=== PATIENT | male | born 1960 | race Caucasian/White ===

== ENCOUNTER 2020-05-14 08:47 | Outpatient (REF) | payer MEDICARE, SELFPAY | END 2020-05-14 08:48 | disposition home or self-care (01) | LOC: HO.LAB 08:47 | PROVIDERS: PCP Internal Medicine; Visit Provider Internal Medicine | DX: Z20.828 Contact with and (suspected) exposure to other viral communicable diseases (principal) | CPT/HCPCS: C9803; U0003 ==

== ENCOUNTER 2020-08-13 10:45 | Outpatient (REF) | payer MEDICARE, SELFPAY | END 2020-08-13 10:46 | disposition home or self-care (01) | LOC: HO.LAB 10:45 | PROVIDERS: Visit Provider Internal Medicine | DX: Z20.822 Contact with and (suspected) exposure to COVID-19 (principal) | CPT/HCPCS: 36415; C9803; U0003; U0005 ==

== ENCOUNTER 2020-09-18 11:17 | Outpatient (REF) | payer MEDICARE, SELFPAY | END 2020-09-18 11:18 | disposition home or self-care (01) | LOC: HO.LAB 11:17 | PROVIDERS: Visit Provider Internal Medicine | DX: Z20.822 Contact with and (suspected) exposure to COVID-19 (principal) | CPT/HCPCS: C9803; U0003; U0005 ==

== ENCOUNTER 2020-10-05 20:34 | Emergency (ER) | payer MEDICARE, SELFPAY ==
--- NOTE | ~2020-10-05 | XR_ITS ---
EXAMINATION: XR CHEST CLINICAL INFORMATION: Chest pain COMPARISON: 07/27/2019 TECHNIQUE: Frontal view of the chest was obtained. FINDINGS: No significant abnormality is noted involving the heart, lungs, mediastinum, bony thorax or soft tissues. XR/XR chest 1V IMPRESSION: Unremarkable examination.
[2020-10-05 20:46] VITALS: BP 122/71; PULSE 63; RESP 16; TEMP 36.6; O2SAT 96; BMI 34.3
--- NOTE | 2020-10-05 20:51 | ECG_ITS ---
Test Reason : CHEST PAIN Blood Pressure : / mmHG Vent. Rate : 064 BPM Atrial Rate : 064 BPM P-R Int : 152 ms QRS Dur : 088 ms QT Int : 396 ms P-R-T Axes : 036 017 031 degrees QTc Int : 408 ms Normal sinus rhythm Normal ECG No previous ECGs available Referred By: Generic ED Physician Electronically Signed By:VANESA ABERNATHY
--- NOTE | 2020-10-05 21:10 | ED_ITS ---
HPI - Chest Pain General Chief Complaint: Chest Pain Stated Complaint: CHEST PAIN Time Seen by Provider: 10/05/20 21:10 Source: patient Mode of arrival: ambulatory History of Present Illness HPI narrative: 60-year-old male with history of seizures denies any other significant past medical history who presents with onset of chest pressure r adiating into his throat and left shoulder that initially started at 10:00 a.m. 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 He denies any association with nausea, diaphoresis, shortness of breath, dizziness, or headache. Patient is unsure of the duration of the pain but denies any association with deep inspiration or movement. He states that this happened a couple more times throughout the day and then when he was out shopping with his at approximately 6:00 p.m. that he began feeling lightheaded and having a headache. He states that he recently returned from [place] and denies any calf swelling or pain. His last COVID testing was twice just prior to flying b ack from [place] and he was negative. In addition, patient is status post Arnoldo and Arnoldo COVID-19 vaccine. Related Data Allergies Allergy/AdvReac Type Severity Reaction Status Date / Time No Known Allergies Allergy Verified 10/05/20 20:45 Review of Systems Review of Systems: Pertinent positives and negatives as stated in HPI 10 point review systems is otherwise negative. PMFSH Past Medical History Source: nursing notes reviewed Medical History Seizure Social History Social History Smoked in Last 30 Days: No Advance Directives: No Advance Directives Information Provided: Yes Physical Exam Vital Signs: Vital Signs: Last Vital Signs Temp 98 F 10/05/20 20:46 Pulse 63 10/05/20 20:46 Resp 16 10/05/20 20:46 BP 122/71 10/05/20 20:46 Pulse Ox 96 10/05/20 20:46 Body Mass Index 34.3 VITAL SIGNS: Reviewed. GENERAL: Well developed, well nourished, in no acute distress. HEAD: Normocephalic/atraumatic EYES: PERRLA, EOMI OROPHARYNX: no oral lesions noted, posterior pharynx clear NECK: Supple, no adenopathy LUNGS: Normal breath sounds. No adventitious sounds or accessory muscle use. SpO2<96>, pain on palpation across left anterior chest wall CARDIOVASCULAR: Regular rate and rhythm without noted murmurs, no JVD or lower extremity edema. ABDOMEN: Soft, non-tender, non-distended with bowel sounds. MUSCULOSKELETAL: No tenderness, deformities, or effusions noted on gross inspection. EXTREMITIES: No cyanosis, clubbing or edema. SKIN: Inspection of the skin reveals no rashes, ulcerations, jaundice, pallor, or petechiae. NEUROLOGIC: Alert and oriented x 4. Strength and sensation to light touch were grossly intact x 4. Course Course Course Narrative: 60-year-old male with history and clinical presentation concerning for possible PE, muscle strain, costochondritis and less likely angina as patient does not have significant history of hypertension or diabetes. HEART Score: 2 Review of all investigations and on re-evaluations are no acute findings to sugg est PE or cardiac ischemia especially given clinical findings of pain on palpation of the anterior chest wall. In addition, patient has low risk and no corresponding EKG changes. All results and findings discussed with him at bedside. He will be discharged in stable condition with strict instructions to follow-up with his primary care provider for further outpatient evaluation. MDM - Chest Pain Lab Data Result diagrams: 10/05/20 21:38 10/05/20 21:38 Labs: Lab Results 10/05/20 10/05/20 10/05/20 Range/Units 21:38 21:38 21:38 WBC 5.2 (4.8-10.8) X10*3/uL RBC 5.04 (4.60-5.80) X10*6/uL Hgb 15.0 (14.0-18.0) g/dl Hct 45.2 (42-52) % MCV 89.7 (80-98) fL MCH 29.8 (27.0-33.0) pg MCHC 33.2 (31.0-36.0) g/dl RDW 12.4 (11.0-16.0) % Plt Count 193 (160-400) X10*3/uL MPV 9.7 (9.4-12.4) fL Immature Gran % (Auto) 0.2 (0.0-0.4) % Neut % (Auto) 58.2 (45-73) % Lymph % (Auto) 25.5 (20-40) % [place] % (Auto) 11.7 H (2-11) % Eos % (Auto) 4.0 (0-4) % Baso % (Auto) 0.4 (0-2) % Lymph # (Auto) 1.3 (1.2-4.9) X10*3/uL [place] # (Auto) 0.6 (0.1-1.2) X10*3/uL Eos # (Auto) 0.2 (0.0-0.4) X10*3/uL Baso # (Auto) 0.0 (0.0-0.2) X10*3/uL Abs Immat Gran (auto) 0.01 (0.00-0.03) X10*3/uL Absolute Neuts (auto) 3.0 (2.0-8.3) X10*3/uL Absolute Nucleated RBC 0.000 (0.0-0.012) X10*3/uL Nucleated RBC % (auto) 0.0 (0.0-0.2) /100WBC D-Dimer < 200 NG/ML Hold Blue Top SEE NOTE Sodium 144 (135-145) mmol/L Potassium 4.2 (3.3-5.1) mmol/L Chloride 108 (96-108) mmol/L Carbon Dioxide 28 (22-29) mmol/L Anion Gap 12 (12-20) BUN 19 H (9-16) mg/dL Creatinine 1.15 (0.5-1.4) mg/dL Estim Creat Clear Calc 79.2 Estimated GFR > 60 Random Glucose 97 (60-115) mg/dL Calcium 9.0 (8.4-10.2) mg/dL Total Bilirubin (0.0-1.0) mg/dL Direct Bilirubin (0.0-0.5) mg/dL AST (5-37) U/L ALT (0-40) U/L Alkaline Phosphatase (39-117) U/L Troponin I High Sens (<3.5-35.0) ng/L Total Protein (6.5-8.0) g/dL Albumin (3.5-5.0) g/dL 10/05/20 10/05/20 Range/Units 21:38 21:38 WBC (4.8-10.8) X10*3/uL RBC (4.60-5.80) X10*6/uL Hgb (14.0-18.0) g/dl Hct (42-52) % MCV (80-98) fL MCH (27.0-33.0) pg MCHC (31.0-36.0) g/dl RDW (11.0-16.0) % Plt Count (160-400) X10*3/uL MPV (9.4-12.4) fL Immature Gran % (Auto) (0.0-0.4) % Neut % (Auto) (45-73) % Lymph % (Auto) (20-40) % [place] % (Auto) (2-11) % Eos % (Auto) (0-4) % Baso % (Auto) (0-2) % Lymph # (Auto) (1.2-4.9) X10*3/uL [place] # (Auto) (0.1-1.2) X10*3/uL Eos # (Auto) (0.0-0.4) X10*3/uL Baso # (Auto) (0.0-0.2) X10*3/uL Abs Immat Gran (auto) (0.00-0.03) X10*3/uL Absolute Neuts (auto) (2.0-8.3) X10*3/uL Absolute Nucleated RBC (0.0-0.012) X10*3/uL Nucleated RBC % (auto) (0.0-0.2) /100WBC D-Dimer NG/ML Hold Blue Top Sodium (135-145) mmol/L Potassium (3.3-5.1) mmol/L Chloride (96-108) mmol/L Carbon Dioxide (22-29) mmol/L Anion Gap (12-20) BUN (9-16) mg/dL Creatinine (0.5-1.4) mg/dL Estim Creat Clear Calc Estimated GFR Random Glucose (60-115) mg/dL Calcium (8.4-10.2) mg/dL Total Bilirubin 0.4 (0.0-1.0) mg/dL Direct Bilirubin < 0.2 (0.0-0.5) mg/dL AST 18 (5-37) U/L ALT 29 (0-40) U/L Alkaline Phosphatase 109 (39-117) U/L Troponin I High Sens < 3.5 (<3.5-35.0) ng/L Total Protein 6.3 L (6.5-8.0) g/dL Albumin 4.0 (3.5-5.0) g/dL ECG Data ECG #1: Attestation: I personally reviewed and interpreted this ECG as follows: Prior ECG tracings: not available for review Interpretation: Normal sinus rhythm, HR-64, no evidence of acute ischemia, [place]/QRS/QTC are within normal limits. Discharge Plan Discharge Clinical Impression: Atypical chest pain, Muscle strain of anterior chest wall Patient Disposition: Home, Self-Care Instructions: Muscle Strain (ED), Chest Wall Pain (ED) Additional Instructions: 1. Drink more fluids especially water. 2. Treat your pain with [id number] Tylenol/ibuprofen as per instructions on the outside packaging. 3. Follow-up with your primary care provider in the next 2-3 days for re- evaluation. Return to the emergency department for any acute worsening of your symptoms. Referrals: Grant Lopez MD [Primary Care Provider] - 2 days (Re-evaluation after evaluated in the emergency room for chest pain, EKG/troponin/D-dimer/x-ray are otherwise negative for acute findings.)
[2020-10-05 22:03] LABS: MANUAL DIFF FLAG NO
[2020-10-05 22:05] LABS: Basophils Percent Auto 0.4 % (0-2); Eosinophils Absolute Auto 0.2 X10*3/uL (0.0-0.4); Hematocrit 45.2 % (42-52); Imm Gran Abs Auto 0.01 X10*3/uL (0.00-0.03); Imm Gran Pct Auto 0.2 % (0.0-0.4); Lymphocytes Absolute Auto 1.3 X10*3/uL (1.2-4.9); Lymphocytes Percent Auto 25.5 % (20-40); Mean Corpuscular HGB Conc 33.2 g/dl (31.0-36.0); Mean Corpuscular Hemoglobin 29.8 pg (27.0-33.0); Mean Corpuscular Volume 89.7 fL (80-98); Mean Platelet Volume 9.7 fL (9.4-12.4); Monocytes Absolute Auto 0.6 X10*3/uL (0.1-1.2); Monocytes Percent Auto 11.7 % (2-11); Neutrophils Percent Auto 58.2 % (45-73); Platelet Count 193 X10*3/uL (160-400); Red Blood Count 5.04 X10*6/uL (4.60-5.80); Red Cell Distribution Width 12.4 % (11.0-16.0); White Blood Count 5.2 X10*3/uL (4.8-10.8)
[2020-10-05 22:19] LABS: D Dimer < 200 NG/ML
[2020-10-05 22:25] LABS: Anion Gap 12 (12-20); Blood Urea Nitrogen 19 mg/dL (9-16); Carbon Dioxide 28 mmol/L (22-29); Chloride 108 mmol/L (96-108); Creatinine Clr Calc Pharmacy 79.2; Estimated Glomerular Filt Rate > 60; Glucose Random 97 mg/dL (60-115); Potassium 4.2 mmol/L (3.3-5.1); Sodium 144 mmol/L (135-145)
[2020-10-05 22:28] LABS: Alanine Aminotransferase 29 U/L (0-40); Alkaline Phosphatase 109 U/L (39-117); Aspartate Amino Transferase 18 U/L (5-37); Bilirubin Direct < 0.2 mg/dL (0.0-0.5); Bilirubin Total 0.4 mg/dL (0.0-1.0); Total Protein 6.3 g/dL (6.5-8.0)
[2020-10-05 22:33] LABS: Troponin-I High Sensitivity < 3.5 ng/L (<3.5-35.0)
[2020-10-05 23:30] VITALS: PULSE 78; RESP 16
== END 2020-10-05 23:59 | disposition home or self-care (01) ==
PROVIDERS: Emergency Provider Student in an Organized Health Care Education/Training Program; PCP Internal Medicine
DX: R07.89 Other chest pain (principal); S29.011A Strain of muscle and tendon of front wall of thorax, initial encounter; X58.XXXA Exposure to other specified factors, initial encounter; Y93.89 Activity, other specified; Y92.411 Interstate highway as the place of occurrence of the external cause; Y99.9 Unspecified external cause status
CPT/HCPCS: 36415; 71045; 80048; 80076; 84484; 85025; 85379; 93005; 99283; 99284

== ENCOUNTER 2020-10-24 17:19 | Emergency (ER) | payer MEDICARE, SELFPAY ==
[2020-10-24 17:36] VITALS: BP 127/76; PULSE 82; RESP 18; TEMP 36.1; O2SAT 95; BMI 34.7
[2020-10-24 19:27] LABS: MANUAL DIFF FLAG NO
[2020-10-24 19:28] LABS: Basophils Percent Auto 0.6 % (0-2); Eosinophils Absolute Auto 0.1 X10*3/uL (0.0-0.4); Eosinophils Percent Auto 2.4 % (0-4); Hematocrit 47.7 % (42-52); Hemoglobin 15.9 g/dl (14.0-18.0); Imm Gran Abs Auto 0.02 X10*3/uL (0.00-0.03); Imm Gran Pct Auto 0.4 % (0.0-0.4); Lymphocytes Absolute Auto 1.4 X10*3/uL (1.2-4.9); Lymphocytes Percent Auto 26.5 % (20-40); Mean Corpuscular HGB Conc 33.3 g/dl (31.0-36.0); Mean Corpuscular Hemoglobin 30.1 pg (27.0-33.0); Mean Corpuscular Volume 90.2 fL (80-98); Mean Platelet Volume 9.3 fL (9.4-12.4); Monocytes Absolute Auto 0.6 X10*3/uL (0.1-1.2); Monocytes Percent Auto 11.1 % (2-11); Neutrophils Absolute Auto 3.1 X10*3/uL (2.0-8.3); Platelet Count 222 X10*3/uL (160-400); Red Blood Count 5.29 X10*6/uL (4.60-5.80); Red Cell Distribution Width 12.8 % (11.0-16.0); White Blood Count 5.3 X10*3/uL (4.8-10.8)
[2020-10-24 19:31] LABS: Glucose Urine UA NEG (NEG); Leukocyte Esterase Urine NEG (NEG); Nitrite Urine NEG (NEG); Specific Gravity - Urine 1.025 (1.005-1.025); Urine Blood NEG (NEG); Urine Ketones NEG (NEG); Urine Protein NEG (NEG-TRACE)
[2020-10-24 19:34] LABS: Appearance Urine CLEAR; Color Urine YELLOW
[2020-10-24 19:54] LABS: Alanine Aminotransferase 33 U/L (0-40); Albumin Level 4.2 g/dL (3.5-5.0); Alkaline Phosphatase 125 U/L (39-117); Anion Gap 12 (12-20); Aspartate Amino Transferase 21 U/L (5-37); Bilirubin Total 0.2 mg/dL (0.0-1.0); Blood Urea Nitrogen 16 mg/dL (9-16); Calcium 9.2 mg/dL (8.4-10.2); Carbon Dioxide 28 mmol/L (22-29); Chloride 105 mmol/L (96-108); Creatinine Clr Calc Pharmacy 76.3; Estimated Glomerular Filt Rate > 60; Glucose Random 87 mg/dL (60-115); Potassium 4.1 mmol/L (3.3-5.1); Sodium 141 mmol/L (135-145); Total Protein 6.7 g/dL (6.5-8.0)
[2020-10-24 20:00] VITALS: RESP 16
[2020-10-24 20:00] LABS: OBS Int Ctl Valid YES; OBS1 POSITIVE (NEGATIVE)
--- NOTE | 2020-10-24 20:04 | ED_ITS ---
HPI - General Adult General Chief complaint: Abdominal Pain Stated complaint: blood in urine Time Seen by Provider: 10/24/20 19:29 Source: patient Mode of arrival: ambulatory Limitations: no limitations History of Present Illness HPI narrative: Patient presents to the ED for 1 episode of stool which occurred yesterday. Patient states he was straining while using the bathroom and his stool was hard and than there was bright red blood in the stool. Patient states stool was brown. Patient admits to history of hemorrhoids. Denies vomiting blood, dizziness, headache, abdominal pain, chest pain, shortness of breath, or any recent trauma. Related Data Previous Rx's Medication Instructions Recorded docusate sodium [Colace] 100 mg PO BID #20 cap 10/24/20 hydrocortisone acetate [Anusol-HC] 25 mg FL BID #12 ea 10/24/20 Allergies Allergy/AdvReac Type Severity Reaction Status Date / Time No Known Allergies Allergy Verified 10/05/20 20:45 Review of Systems Review of Systems: Yes all other systems are reviewed and are negative Constitutional: Constitutional: Reports as per HPI and Reports no additional constitutional complaints Eyes: Eyes: Reports as per HPI and Reports no additional eye complaints ENT: Reports system reviewed and no additional complaints, except as documented and Reports as per HPI Cardiovascular: Cardiovascular: Reports as per HPI and Reports no additional cardiovascular complaints Respiratory: Respiratory: Reports as per HPI and Reports no additional respiratory complaints Gastrointestinal: Gastrointestinal: Reports as per HPI, Reports no additional gastrointestinal complaints and Reports hematochezia Genitourinary: Genitourinary: Reports no additional male genitourinary complaints and Reports as per HPI Musculoskeletal: Musculoskeletal: Reports no additional musculoskeletal compla ints and Reports as per HPI Neurologic: Reports system reviewed and no additional complaints, except as documented and Reports as per HPI Psychiatric: Psychiatric: Reports no additional psychiatric complaints and Reports as per HPI PMF Past Medical History Medical History Seizure Social History Social History Alcohol intake: current Alcohol intake frequency: holidays/special occasions only Patient Tobacco Use Status: Never used Tobacco Use of substances other than those prescribed or required for medical reasons: Refusing to respond Advance Directives: No Advance Directives Information Provided: No Physical Exam Vital Signs: Vital Signs: Last Vital Signs Temp 96.9 F 10/24/20 17:36 Pulse 82 10/24/20 17:36 Resp 16 10/24/20 20:00 BP 127/76 10/24/20 17:36 Pulse Ox 95 10/24/20 17:36 Body Mass Index 34.7 Const: General: cooperative, healthy appearing, comfortable, no acute distress, well developed, alert, awake and Physically active Orientation/consciousness: patient oriented x3 HENMT: Head: Yes normal to inspection, Yes No palpable skull fracture present, Yes normocephalic and Yes atraumatic Eyes: General: appearance normal, both eyes and all related structures Neck: Neck: Yes normal visual inspection, Yes full ROM, Yes no lymphadenopathy, Yes no meningeal signs, Yes trachea midline, Yes supple and No tender Chest: Chest palpation & inspection: normal inspection of the chest and normal palpation of entire chest wall Resp: Effort & Inspection: normal respiratory effort and able to speak in complete sentences Auscultation: clear to auscultation bilaterally Cardio: Jugular venous distension: no JVD Heart sounds: S1 normal heart sound present and S2 normal heart sound present GI: Other: Rectal exam negative for octavio blood. Stool is brown. Positive for hemorrhoids Inspection: Yes normal to inspection and No abdominal wall ecchymosis Palpation (GI): Soft to palpation, not firm, nontender, no guarding and not rigid : General: No CVA tenderness and Yes no CVA tenderness Back/Spine/Pelvis: Back: no CVA tenderness, No CVA tenderness and No back tend erness Skin: General skin exam: no rashes or lesions noted and elasticity normal Neuro: General: patient oriented x3, gait normal, no meningeal signs and CN's II-XI intact bilaterally Cranial nerves: Yes CN's II-XII intact bilaterally Extrem: General: Yes normal to inspection and Yes full ROM Psych: Appearance: grossly normal, well kempt and not disheveled Course Course Course Narrative: Patient will have labs drawn. Reevaluation(s) Reevaluation #1: Labs came back stable. Patient is not anemic. Patient is hemodynamically stable. Blood stool positive as expected. Not suspecting GI bleed. Diagnosis hemorrhoids Medical Decision Making MDM Narrative Medical decision making narrative: Hemorrhoids Lab Data Result diagrams: 10/24/20 19:00 10/24/20 19:00 Labs: Lab Results 10/24/20 10/24/20 10/24/20 Range/Units 19:00 19:00 19:00 WBC 5.3 (4.8-10.8) X10*3/uL RBC 5.29 (4.60-5.80) X10*6/uL Hgb 15.9 (14.0-18.0) g/dl Hct 47.7 (42-52) % MCV 90.2 (80-98) fL MCH 30.1 (27.0-33.0) pg MCHC 33.3 (31.0-36.0) g/dl RDW 12.8 (11.0-16.0) % Plt Count 222 (160-400) X10*3/uL MPV 9.3 L (9.4-12.4) fL Immature Gran % (Auto) 0.4 (0.0-0.4) % Neut % (Auto) 59.0 (45-73) % Lymph % (Auto) 26.5 (20-40) % [place] % (Auto) 11.1 H (2-11) % Eos % (Auto) 2.4 (0-4) % Baso % (Auto) 0.6 (0-2) % Lymph # (Auto) 1.4 (1.2-4.9) X10*3/uL [place] # (Auto) 0.6 (0.1-1.2) X10*3/uL Eos # (Auto) 0.1 (0.0-0.4) X10*3/uL Baso # (Auto) 0.0 (0.0-0.2) X10*3/uL Abs Immat Gran (auto) 0.02 (0.00-0.03) X10*3/uL Absolute Neuts (auto) 3.1 (2.0-8.3) X10*3/uL Absolute Nucleated RBC 0.000 (0.0-0.012) X10*3/uL Nucleated RBC % (auto) 0.0 (0.0-0.2) /100WBC PT 12.0 (10.8-13.0) SEC INR 1.0 (0.9-1.1) APTT 37.2 (24.1-38.0) SEC Hold Blue Top SEE NOTE Sodium 141 (135-145) mmol/L Potassium 4.1 (3.3-5.1) mmol/L Chloride 105 (96-108) mmol/L Carbon Dioxide 28 (22-29) mmol/L Anion Gap 12 (12-20) BUN 16 (9-16) mg/dL Creatinine 1.20 (0.5-1.4) mg/dL Estim Creat Clear Calc 76.3 Estimated GFR > 60 Random Glucose 87 (60-115) mg/dL Calcium 9.2 (8.4-10.2) mg/dL Total Bilirubin 0.2 (0.0-1.0) mg/dL AST 21 (5-37) U/L ALT 33 (0-40) U/L Alkaline Phosphatase 125 H (39-117) U/L Total Protein 6.7 (6.5-8.0) g/dL Albumin 4.2 (3.5-5.0) g/dL Urine Color Urine Appearance Urine pH (5.0-8.0) Ur Specific [place] (1.005-1.025) Urine Protein (NEG-TRACE) MG/DL Urine Glucose (UA) (NEG) MG/DL Urine Ketones (NEG) MG/DL Urine Blood (NEG) Urine Nitrite (NEG) Ur Leukocyte Esterase (NEG) Stool Occult Blood (NEGATIVE) 10/24/20 10/24/20 Range/Units 19:00 19:52 WBC (4.8-10.8) X10*3/uL RBC (4.60-5.80) X10*6/uL Hgb (14.0-18.0) g/dl Hct (42-52) % MCV (80-98) fL MCH (27.0-33.0) pg MCHC (31.0-36.0) g/dl RDW (11.0-16.0) % Plt Count (160-400) X10*3/uL MPV (9.4-12.4) fL Immature Gran % (Auto) (0.0-0.4) % Neut % (Auto) (45-73) % Lymph % (Auto) (20-40) % [place] % (Auto) (2-11) % Eos % (Auto) (0-4) % Baso % (Auto) (0-2) % Lymph # (Auto) (1.2-4.9) X10*3/uL [place] # (Auto) (0.1-1.2) X10*3/uL Eos # (Auto) (0.0-0.4) X10*3/uL Baso # (Auto) (0.0-0.2) X10*3/uL Abs Immat Gran (auto) (0.00-0.03) X10*3/uL Absolute Neuts (auto) (2.0-8.3) X10*3/uL Absolute Nucleated RBC (0.0-0.012) X10*3/uL Nucleated RBC % (auto) (0.0-0.2) /100WBC PT (10.8-13.0) SEC INR (0.9-1.1) APTT (24.1-38.0) SEC Hold Blue Top Sodium (135-145) mmol/L Potassium (3.3-5.1) mmol/L Chloride (96-108) mmol/L Carbon Dioxide (22-29) mmol/L Anion Gap (12-20) BUN (9-16) mg/dL Creatinine (0.5-1.4) mg/dL Estim Creat Clear Calc Estimated GFR Random Glucose (60-115) mg/dL Calcium (8.4-10.2) mg/dL Total Bilirubin (0.0-1.0) mg/dL AST (5-37) U/L ALT (0-40) U/L Alkaline Phosphatase (39-117) U/L Total Protein (6.5-8.0) g/dL Albumin (3.5-5.0) g/dL Urine Color YELLOW Urine Appearance CLEAR Urine pH 6.0 (5.0-8.0) Ur Specific [place] 1.025 (1.005-1.025) Urine Protein NEG (NEG-TRACE) MG/DL Urine Glucose (UA) NEG (NEG) MG/DL Urine Ketones NEG (NEG) MG/DL Urine Blood NEG (NEG) Urine Nitrite NEG (NEG) Ur Leukocyte Esterase NEG (NEG) Stool Occult Blood POSITIVE (NEGATIVE) Discharge Plan Discharge Clinical Impression: Hemorrhoids, Rectal bleed Patient Disposition: Home, Self-Care Instructions: Hemorrhoids (ED), Rectal Bleeding (ED) Additional Instructions: Return to ED for abdominal pain, nausea, vomiting, profuse rectal bleeding, rectal pain, flank pain, fever, chills, dizziness, chest pain, shortness of breath, any other concerning symptoms. Prescriptions: New hydrocortisone acetate [Anusol-HC] 25 mg suppository 25 mg FL BID Qty: 12 RF: 0 docusate sodium [Colace] 100 mg capsule 100 mg PO BID Qty: 20 RF: 0 Referrals: Grant Lopez MD [Primary Care Provider] - 2 days (Hemorrhoids. Rectal bleeding) Interventions: ED Discharge Assessment Last Done: 10/24/20 20:21 Discharge Date/Time: 10/24/20 20:22 Print Language: Tongan
--- NOTE | 2020-10-24 20:11 | PC.NURSE ---
per marcelo leal, no need for iv.
[2020-10-24 20:14] LABS: Partial Thromboplastin Time 37.2 SEC (24.1-38.0)
== END 2020-10-24 20:22 | disposition home or self-care (01) ==
PROVIDERS: Physician Assistant; Emergency Provider Internal Medicine; PCP Internal Medicine
DX: K64.9 Unspecified hemorrhoids (principal); Z79.899 Other long term (current) drug therapy
CPT/HCPCS: 36415; 80053; 81003; 82272; 85025; 85610; 85730; 99284

== ENCOUNTER 2021-03-07 10:25 | Outpatient (REF) | payer MEDICARE, SELFPAY ==
[2021-03-07 13:36] LABS: MANUAL DIFF FLAG NO
[2021-03-07 13:43] LABS: Basophils Percent Auto 0.5 % (0-2); Eosinophils Absolute Auto 0.1 X10*3/uL (0.0-0.4); Hematocrit 44.5 % (42-52); Imm Gran Abs Auto 0.02 X10*3/uL (0.00-0.03); Imm Gran Pct Auto 0.4 % (0.0-0.4); Lymphocytes Absolute Auto 1.1 X10*3/uL (1.2-4.9); Lymphocytes Percent Auto 20.1 % (20-40); Mean Corpuscular HGB Conc 33.7 g/dl (31.0-36.0); Mean Corpuscular Hemoglobin 30.4 pg (27.0-33.0); Mean Corpuscular Volume 90.3 fL (80-98); Mean Platelet Volume 9.9 fL (9.4-12.4); Monocytes Absolute Auto 0.7 X10*3/uL (0.1-1.2); Monocytes Percent Auto 11.8 % (2-11); Neutrophils Absolute Auto 3.6 X10*3/uL (2.0-8.3); Neutrophils Percent Auto 65.2 % (45-73); Platelet Count 220 X10*3/uL (160-400); Red Blood Count 4.93 X10*6/uL (4.60-5.80); Red Cell Distribution Width 12.6 % (11.0-16.0); White Blood Count 5.5 X10*3/uL (4.8-10.8)
[2021-03-07 13:59] LABS: Estimated Average Glucose 123 mg/dL; Hemoglobin A1c % 5.9 %
[2021-03-07 14:18] LABS: Alanine Aminotransferase 25 U/L (0-40); Alkaline Phosphatase 100 U/L (39-117); Anion Gap 12 (12-20); Aspartate Amino Transferase 16 U/L (5-37); Bilirubin Total 0.2 mg/dL (0.0-1.0); Blood Urea Nitrogen 19 mg/dL (9-16); C Reactive Protein 0.26 mg/dL (< or = 0.50); Calcium 9.2 mg/dL (8.4-10.2); Carbon Dioxide 26 mmol/L (22-29); Chloride 109 mmol/L (96-108); Cholesterol 214 mg/dL; Estimated Glomerular Filt Rate 59; Glucose Random 78 mg/dL (60-115); Lipase 45 U/L (8-78); Potassium 4.7 mmol/L (3.3-5.1); Sodium 142 mmol/L (135-145); Total Protein 6.1 g/dL (6.5-8.0)
[2021-03-07 14:22] LABS: Creatinine Urine 94.33 mg/dL; Microalbumin Urine < 5.0 mg/L
[2021-03-08 15:25] LABS: Transglutaminase Ab IgG <1.0 U/mL; Transglutaminase IgA <1.0 U/mL
== END 2021-03-07 10:26 | disposition home or self-care (01) ==
LOC: HO.10HDL 10:25
PROVIDERS: Visit Provider Internal Medicine
DX: R73.03 Prediabetes (principal); R19.7 Diarrhea, unspecified; G40.909 Epilepsy, unspecified, not intractable, without status epilepticus
CPT/HCPCS: 36415; 80053; 82043; 82465; 83036; 83516; 83690; 85025; 86140

== ENCOUNTER 2021-07-24 11:56 | Outpatient (REF) | payer MEDICARE, SELFPAY ==
[2021-07-24 13:57] LABS: MANUAL DIFF FLAG NO
[2021-07-24 13:59] LABS: Basophils Percent Auto 0.2 % (0-2); Eosinophils Percent Auto 0.2 % (0-4); Hematocrit 48.3 % (42.0-52.0); Hemoglobin 16.1 g/dl (14.0-18.0); Imm Gran Abs Auto 0.03 X10*3/uL (0.00-0.03); Imm Gran Pct Auto 0.7 % (0.0-0.4); Lymphocytes Absolute Auto 0.4 X10*3/uL (1.2-4.9); Lymphocytes Percent Auto 9.8 % (20-40); Mean Corpuscular HGB Conc 33.3 g/dl (31.0-36.0); Mean Corpuscular Hemoglobin 30.2 pg (27.0-33.0); Mean Corpuscular Volume 90.6 fL (80.0-98.0); Mean Platelet Volume 9.8 fL (9.4-12.4); Monocytes Absolute Auto 0.4 X10*3/uL (0.1-1.2); Monocytes Percent Auto 9.3 % (2-11); Neutrophils Absolute Auto 3.5 x10*3/uL (2.0-8.3); Neutrophils Percent Auto 79.8 % (45-73); Platelet Count 172 X10*3/uL (160-400); Red Blood Count 5.33 X10*6/uL (4.60-5.80); Red Cell Distribution Width 12.7 % (11.0-16.0); White Blood Count 4.4 X10*3/uL (4.8-10.8)
[2021-07-24 14:07] LABS: Estimated Average Glucose 131 mg/dL; Hemoglobin A1c % 6.2 %
[2021-07-24 14:32] LABS: Alanine Aminotransferase 25 U/L (0-40); Alkaline Phosphatase 112 U/L (39-117); Anion Gap 16 (12-20); Aspartate Amino Transferase 17 U/L (5-37); Bilirubin Total 0.6 mg/dL (0.0-1.0); Blood Urea Nitrogen 21 mg/dL (9-16); Calcium 9.1 mg/dL (8.4-10.2); Carbon Dioxide 24 mmol/L (22-29); Chloride 105 mmol/L (96-108); Cholesterol 198 mg/dL; Estimated Glomerular Filt Rate 59; Glucose Fasting 93 mg/dL (60-99); HDL Cholesterol 42 mg/dL; LDL Cholesterol Calculated 135 mg/dl; Potassium 4.2 mmol/L (3.3-5.1); Sodium 141 mmol/L (135-145); Total Protein 6.4 g/dL (6.5-8.0); Triglycerides 109 mg/dL
[2021-07-24 14:46] LABS: Carbamazepine Tegretol 2.6 mcg/mL (5.0-12.0); Phenytoin Dilantin 2.3 ug/mL (10.0-20.0)
[2021-07-24 14:54] LABS: Prostate Specific Antigen Scr 1.76 ng/mL (<0.05-4.0)
== END 2021-07-24 11:57 | disposition home or self-care (01) ==
LOC: HO.10HDL 11:56
PROVIDERS: Visit Provider Internal Medicine
DX: Z12.5 Encounter for screening for malignant neoplasm of prostate (principal); R10.9 Unspecified abdominal pain; E78.00 Pure hypercholesterolemia, unspecified; G40.909 Epilepsy, unspecified, not intractable, without status epilepticus
CPT/HCPCS: 36415; 80053; 80061; 80156; 80185; 83036; 84153; 85025

== ENCOUNTER 2021-12-06 08:25 | Day surgery (SDC) | payer MEDICARE, SELFPAY ==
--- NOTE | 2021-12-04 12:44 | HO.ANESPROP2 ---
HPI - Anesthesia Eval Consult details Narrative: 61yo M for Colonoscopy PMF Past Medical History Medical History Seizure Social History Social History Alcohol intake: current Alcohol intake frequency: does not drink Patient Tobacco Use Status: Never used Tobacco Are you DNR?: No Advance Directives: No Advance Directives Information Provided: Yes Meds Allergies Allergy/AdvReac Type Severity Reaction Status Date / Time No Known Allergies Allergy Verified 10/05/20 20:45 Home Medications Medication Instructions Recorded Confirmed Last Taken Type phenytoin sodium extended 100 mg cap PO 12/06/21 12/06/21 History capsule Exam Exam Date and Time: December 04, 2021 1244 Pertinent Lab Results Pertinent Lab Results: Laboratory Tests 07/24/21 07/24/21 11:58 11:58 WBC 4.4 L Hgb 16.1 Hct 48.3 Plt Count 172 Sodium 141 Potassium 4.2 Chloride 105 Carbon Dioxide 24 BUN 21 H Creatinine 1.25 Assessment and Plan Assessment Anesthesia Assessment: Chart Reviewed
[2021-12-06 08:18] VITALS: BMI 36.3
[2021-12-06 08:32] VITALS: BP 148/91; PULSE 71; RESP 17; TEMP 36.1; O2SAT 96
--- NOTE | 2021-12-06 08:49 | HO.ANESPROP2 ---
[facility] Past Medical History Medical History Seizure Family History Family history of problems with anesthesia: No Surgical History History of Problems with Anesthesia: No Social History Social History Alcohol intake: current Alcohol intake frequency: does not drink Patient Tobacco Use Status: Never used Tobacco Are you DNR?: No Advance Directives: No Advance Directives Information Provided: Yes Meds Allergies Allergy/AdvReac Type Severity Reaction Status Date / Time No Known Allergies Allergy Verified 10/05/20 20:45 Active Medications: Current Medications Lactated Ringer's (Lr) 1,000 mls @ 100 mls/hr IVCONT .Q10H [facility] Home Medications Medication Instructions Recorded Confirmed Last Taken Type phenytoin sodium extended 100 mg cap PO 12/06/21 12/06/21 History capsule Exam Exam Date and Time: December 06, 2021 0849 Height,Weight and Vital Signs: Height 5 ft 8 in Weight 108.409 kg Last Vital Signs Temp 96.9 F 12/06/21 08:32 Pulse 71 12/06/21 08:32 Resp 17 12/06/21 08:32 BP 148/91 H 12/06/21 08:32 Pulse Ox 96 12/06/21 08:32 O2 Del Method 12/06/21 08:32 Airway Mallampati Class: III TM Dist: >3cm Neck ROM: Full Assessment and Plan Assessment Anesthesia Assessment: Anesthesia Plan Discussed and Chart Reviewed Final Anesthetic Review Family History of Problems with Anesthesia: No History of Problems with Anesthesia: No NPO: Yes ASA Class: II Final Preanesthetic Review: No Changes in Pt Med Stat, Meds/Allgs Chart Reviewed, Consent Obtained/Reviewed and Anes Risks/Benef Reviewed Patient Risk: Low Procedure Risk: Low Anesthetic Plan Anesthetic Plan: MAC: Disposition: Standard PACU
--- NOTE | 2021-12-06 09:25 | MHC.SHP ---
Pre-Procedural Eval Section A Date of Service: 12/06/21 The patient is an INPATIENT: No Changes since office visit: No Cold of Flu in the past 2 weeks, No New Medical Problems, No Changes in Medication and No Patient answered all questions The History & Physical has been completed within 30 days and I have reviewed it.: Yes Section B Chief Complaint: screening Allergies: Allergies Allergy/AdvReac Type Severity Reaction Status Date / Time No Known Allergies Allergy Verified 10/05/20 20:45 Plan I have reviewed the history and physical and performed a pertinent physical examination on my patient. No changes have occurred unless specified.
[2021-12-06 10:01] VITALS: BP 105/68; PULSE 66; RESP 20; TEMP 36.1; O2SAT 98
--- NOTE | 2021-12-06 10:08 | P.BOP_ITS ---
Brief Operative Note Date of Service: 12/06/21 Procedure: colonoscopy Surgeon: Darren Elam Anesthesia: MAC Was an Vacuum Metalizer Operator used for this Procedure?: No Estimated blood loss (mL): 0 Pathology: other (polyps 80 cm) Condition: stable Disposition: PACU
[2021-12-06 10:16] VITALS: BP 116/76; PULSE 70; RESP 18; TEMP 36.1; O2SAT 95
[2021-12-06 10:31] VITALS: BP 123/82; PULSE 65; RESP 16; TEMP 36.6; O2SAT 97
[2021-12-06] MEDS: Lactated Ringers 1,000 ML 100 ML IVCONT (10:33)
--- NOTE | 2021-12-06 10:36 | OP_ITS ---
SURGEON: Darren Elam MD INDICATIONS: Colon cancer screening. PREOPERATIVE DIAGNOSIS: POSTOPERATIVE DIAGNOSIS: PROCEDURE PERFORMED: ESTIMATED BLOOD LOSS: COMPLICATIONS: ANESTHESIA: ASSISTANTS: SPECIMENS: PROCEDURE: Colonoscopy to the terminal ileum with snare polypectomy. MEDICATIONS: Monitored anesthesia care. DESCRIPTION OF PROCEDURE: The history and physical performed. The risks and benefits of the procedure were explained to the patient. Informed consent was obtained. The patient was placed in the left lateral decubitus position. A digital rectal exam was performed and was found to be normal. The Olympus pediatric video colonoscope was introduced into the rectum and advanced to the cecum without difficulty. The cecum was identified by transillumination, palpation, and identification of ileocecal valve. Examination was performed. The scope was removed. He tolerated the procedure well and returned to recovery area in stable condition. FINDINGS: The terminal ileum was examined and appeared normal. The visualized colonic mucosa was normal. The quality of the prep was good. Two polyps were identified at 80 cm and the first measured 10 mm, the second was approximately 8 mm. Both were removed with a snare and recovered via suction. No other polyps were identified. There was moderate sigmoid diverticulosis. Retroflexed examination showed moderately large internal hemorrhoids. IMPRESSION: Colon polyps. RECOMMENDATION: Follow up the biopsy results. MD NICK Vasquez/CYRIL / [id number]
== END 2021-12-06 11:00 | disposition home or self-care (01) ==
PROVIDERS: PCP Internal Medicine; Visit Provider Internal Medicine Gastroenterology
PROC: 0DJD8ZZ Inspection of Lower Intestinal Tract, Via Natural or Artificial Opening Endoscopic (ICD-10-PCS; CPT 45378; principal; 2021-12-06 09:30)
DX: Z12.11 Encounter for screening for malignant neoplasm of colon (principal); D12.4 Benign neoplasm of descending colon; K57.30 Diverticulosis of large intestine without perforation or abscess without bleeding; K64.8 Other hemorrhoids; G40.909 Epilepsy, unspecified, not intractable, without status epilepticus; J30.9 Allergic rhinitis, unspecified; E78.00 Pure hypercholesterolemia, unspecified; Z79.899 Other long term (current) drug therapy
CPT/HCPCS: 45385; 88305

== ENCOUNTER 2022-04-27 09:01 | Emergency (ER) | payer MEDICARE, SELFPAY ==
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
[2022-04-27 09:25] VITALS: BP 126/89; BP 140/82; PULSE 67; PULSE 76; RESP 18; TEMP 36.7; O2SAT 96; O2SAT 98; BMI 36.3
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
[2022-04-27] MEDS: Ketorolac Tromethamine 30 MG/ML VIAL IM (11:29)
== END 2022-04-27 11:31 | disposition home or self-care (01) ==
PROVIDERS: Emergency Provider Emergency Medicine; PCP Internal Medicine
DX: M16.0 Bilateral primary osteoarthritis of hip (principal); Z79.899 Other long term (current) drug therapy
CPT/HCPCS: 73502; 96372; 99284; J1885

== ENCOUNTER 2022-10-02 06:25 | Outpatient (REF) | payer MEDICARE, SELFPAY ==
[2022-10-02 06:37] LABS: MANUAL DIFF FLAG NO
[2022-10-02 07:20] LABS: Basophils Percent Auto 0.4 % (0-2); Eosinophils Absolute Auto 0.1 X10*3/uL (0.0-0.4); Eosinophils Percent Auto 1.7 % (0-4); Hemoglobin 15.7 g/dl (14.0-18.0); Imm Gran Abs Auto 0.02 X10*3/uL (0.00-0.03); Imm Gran Pct Auto 0.4 % (0.0-0.4); Lymphocytes Absolute Auto 1.1 X10*3/uL (1.2-4.9); Lymphocytes Percent Auto 20.7 % (20-40); Mean Corpuscular HGB Conc 33.4 g/dl (31.0-36.0); Mean Corpuscular Hemoglobin 29.7 pg (27.0-33.0); Mean Platelet Volume 9.4 fL (9.4-12.4); Monocytes Absolute Auto 0.6 X10*3/uL (0.1-1.2); Monocytes Percent Auto 11.2 % (2-11); Neutrophils Absolute Auto 3.6 x10*3/uL (2.0-8.3); Neutrophils Percent Auto 65.6 % (45-73); Platelet Count 202 X10*3/uL (160-400); Red Blood Count 5.28 X10*6/uL (4.60-5.80); Red Cell Distribution Width 12.4 % (11.0-16.0); White Blood Count 5.5 X10*3/uL (4.8-10.8)
[2022-10-02 07:47] LABS: Estimated Average Glucose 134 mg/dL; Hemoglobin A1c % 6.3 %
[2022-10-02 08:01] LABS: Alanine Aminotransferase 31 U/L (0-40); Albumin Level 3.7 g/dL (3.5-5.0); Alkaline Phosphatase 111 U/L (39-117); Anion Gap 12 (12-20); Aspartate Amino Transferase 18 U/L (5-37); Bilirubin Total 0.4 mg/dL (0.0-1.0); Blood Urea Nitrogen 18 mg/dL (9-16); Calcium 9.3 mg/dL (8.4-10.2); Carbon Dioxide 27 mmol/L (22-29); Chloride 109 mmol/L (96-108); Cholesterol 194 mg/dL; Estimated Glomerular Filt Rate > 60; Glucose Fasting 135 mg/dL (60-99); HDL Cholesterol 41 mg/dL; LDL Cholesterol Calculated 133 mg/dl; Potassium 4.6 mmol/L (3.3-5.1); Sodium 143 mmol/L (135-145); Total Protein 5.8 g/dL (6.5-8.0); Triglycerides 100 mg/dL
[2022-10-02 08:03] LABS: Appearance Urine Clear; Color Urine Yellow; Glucose Urine UA Negative (Negative); Leukocyte Esterase Urine Negative (Negative); Nitrite Urine Negative (Negative); PH 5.5 (5.0-9.0); Urine Blood Negative (Negative); Urine Ketones Negative (Negative); Urine Protein Negative (Neg-Trace)
[2022-10-02 08:54] LABS: Creatinine Urine 154.08 mg/dL; Microalbum/Creatinine Ratio Ur 3.8 ug/mg cr
[2022-10-02 09:01] LABS: Prostate Specific Antigen 6.28 ng/mL (<0.05-4.0)
== END 2022-10-02 06:26 | disposition home or self-care (01) ==
LOC: HO.LAB 06:25
PROVIDERS: PCP Internal Medicine; Visit Provider Internal Medicine
DX: Z12.5 Encounter for screening for malignant neoplasm of prostate (principal); E78.00 Pure hypercholesterolemia, unspecified; R73.03 Prediabetes; N18.9 Chronic kidney disease, unspecified; G40.909 Epilepsy, unspecified, not intractable, without status epilepticus
CPT/HCPCS: 36415; 80053; 80061; 81003; 82043; 83036; 84153; 85025

== ENCOUNTER → 2022-10-16 13:14 | Outpatient (BNVA) | payer MEDICARE, SELFPAY | PROVIDERS: PCP Internal Medicine; Referring Provider Internal Medicine; Visit Provider Surgery | DX: K64.8 Other hemorrhoids (principal); K64.4 Residual hemorrhoidal skin tags | CPT/HCPCS: 46600; 99202 ==

== ENCOUNTER 2022-11-07 07:54 | Day surgery (SDC) | payer MEDICARE, SELFPAY ==
--- NOTE | 2022-11-06 09:03 | HO.ANESPROP2 ---
Documented by User: Caitlyn Dave NP 11/06/22 09:05 HPI - Anesthesia Eval Consult details Narrative: 62yo M for Exam Under Anesthesia, Hemorrhoidectomy PMFSH Active Problems Active Problems: All Active Problems (Updated 10/16/22 @ 13:48 by Grant Yang MD) Bleeding hemorrhoids (Acute) Hyperlipidemia (Acute) Past Medical History Medical History (Updated 10/16/22 @ 13:48 by Grant Yang MD) Bleeding hemorrhoids Hyperlipidemia Seizure Family History Family History Brother Cancer of unknown origin Family history of problems with anesthesia: No Surgical History Surgical History (Updated 11/05/22 @ 11:05 by Monik Ware RN) Hx of colonoscopy No pertinent past surgical history History of Problems with Anesthesia: No Social History Social History Alcohol intake: never Patient Tobacco Use Status: Never used Tobacco Use of substances other than those prescribed or required for medical reasons: No Are you DNR?: No Advance Directives: No Advance Directives Information Provided: Yes Meds Allergies Allergy/AdvReac Type Severity Reaction Status Date / Time No Known Allergies Allergy Verified 10/16/22 13:31 Home Medications Medication Instructions Recorded Confirmed Last Taken Type phenytoin sodium extended 100 mg 100 cap PO 12/06/21 10/16/22 11/07/22 History capsule carbamazepine 200 mg tablet 200 mg PO TID 10/16/22 11/05/22 11/07/22 History pravastatin 20 mg tablet 20 mg PO DAILY 10/16/22 11/05/22 Unknown History Exam Exam Date and Time: November 06, [id number] Pertinent Lab Results Pertinent Lab Results: Laboratory Tests 10/02/22 10/02/22 06:36 06:36 WBC 5.5 Hgb 15.7 Hct 47.0 Plt Count 202 Sodium 143 Potassium 4.6 Chloride 109 H Carbon Dioxide 27 BUN 18 H Creatinine 1.22 Assessment and Plan Assessment Anesthesia Assessment: Chart Reviewed Final Anesthetic Review Family History of Problems with Anesthesia: No History of Problems with Anesthesia: No Documented by User: Itzel Lott MD 11/07/22 09:16 [facility] Past Medical History Medical History (Updated 10/16/22 @ 13:48 by Grant Yang MD) Bleeding hemorrhoids Hyperlipidemia Seizure Family History Family History Brother Cancer of unknown origin Surgical History Surgical History (Updated 11/05/22 @ 11:05 by Monik Ware RN) Hx of colonoscopy No pertinent past surgical history Social History Social History Alcohol intake: never Patient Tobacco Use Status: Never used Tobacco Use of substances other than those prescribed or required for medical reasons: No Are you DNR?: No Advance Directives: No Advance Directives Information Provided: Yes Meds Allergies Allergy/AdvReac Type Severity Reaction Status Date / Time No Known Allergies Allergy Verified 10/16/22 13:31 Home Medications Medication Instructions Recorded Confirmed Last Taken Type phenytoin sodium extended 100 mg 100 cap PO 12/06/21 10/16/22 11/07/22 History capsule carbamazepine 200 mg tablet 200 mg PO TID 10/16/22 11/05/22 11/07/22 History pravastatin 20 mg tablet 20 mg PO DAILY 10/16/22 11/05/22 Unknown History Exam Airway Mallampati Class: III TM Dist: >3cm Neck ROM: Full Heart: rrr Lungs: cta Assessment and Plan Assessment Anesthesia Assessment: Anesthesia Plan Discussed Final Anesthetic Review NPO: Yes ASA Class: II Final Preanesthetic Review: No Changes in Pt Med Stat, Meds/Allgs Chart Reviewed and Consent Obtained/Reviewed Patient Risk: Intermediate Procedure Risk: Intermediate Anesthetic Plan Anesthetic Plan: GA Disposition: Standard PACU
[2022-11-07] VITALS (11 sets, daily range): BP systolic 112–130; BP diastolic 69–87; PULSE 59–85; RESP 16–20; TEMP 36.1–36.6; O2SAT 92–96; BMI 36.1
--- NOTE | 2022-11-07 09:00 | MHC.SHP ---
Pre-Procedural Eval Section A Date of Service: 11/07/22 The patient is an INPATIENT: No Changes since office visit: No Cold of Flu in the past 2 weeks, No New Medical Problems, No Changes in Medication and No Patient answered all questions The History & Physical has been completed within 30 days and I have reviewed it.: Yes Section B Chief Complaint: Unspecified hemorrhoids Allergies: Allergies Allergy/AdvReac Type Severity Reaction Status Date / Time No Known Allergies Allergy Verified 10/16/22 13:31 Plan I have reviewed the history and physical and performed a pertinent physical examination on my patient. No changes have occurred unless specified. Time Spent With Patient Time: Total time managing care of this patient today ____ minutes.
[2022-11-07] MEDS: Lactated Ringers 1,000 ML 100 ML IVCONT (09:03)
--- NOTE | 2022-11-07 10:01 | W.PM.OPN ---
Operative Note Operative Note Date of Service: 11/07/22 Narrative: Preop diagnosis: Internal external hemorrhoids with pain and bleeding Postop diagnosis: The same Procedure: Exam under anesthesia, hemorrhoidectomy x2 columns Surgeon: Grant Yang MD The patient is a 62-year-old male who has a long history of pain and bleeding with this hemorrhoids. He wanted to proceed with hemorrhoidectomy. He understood the technique of the planned procedure and was aware of the risks, benefits, and alternatives. He was brought to the operating room. He was placed in prone barbara-knife position under general anesthesia via laryngeal mask airway. The buttocks were retracted with wide tape laterally. The perianal area was prepped and draped in the usual sterile fashion. A surgical time-out was done. The patient received Cefotan 2 g IV preoperatively . I infiltrated the perianal area with lidocaine 1%.Examination of the anal orifice revealed hemorrhoidal columns on the left and right side. I inserted the Emily Canales retractor and examined the anal canal circumferentially. Again these hemorrhoidal columns on the left and right side were seen and were noted to be a mix of internal external. There were no other lesions seen. There was no bleeding or any fissure. I applied a Crews grasper at the hemorrhoidal column on the right side to retract this. I made a figure of 8 stitch at the pedicle proximal to the dentate line using a chromic 3-0. I made an incision around this hemorrhoidal column all the way to the perianal skin with a blade 15. I excised this hemorrhoidal column above the plane of sphincters along this incision using Metzenbaum scissors. I closed this incision with a running chromic 3-0 stitch with additional hemostatic figure 8 sutures being placed for oozing areas . I proceeded to repeat the procedure on the hemorrhoidal column on the left side. This Hemorrhoidal column was retracted with Crews graspers. I made a [id number] stitch at the pedicle using a chromic 3-0. I made an incision around this hemorrhoidal column above the plane of sphincters using a blade 15. I excised this hemorrhoidal column above the plane of sphincters along this incision using a Metzenbaum scissors. I closed this incision with a running chromic 3-0 stitch. Hemostatic [id number] sutures were placed for oozing areas . Once hemostasis was confirmed, I proceeded to then infiltrated the perianal area with Marcaine 0.5% for postop analgesia. The procedure was then completed . The patient tolerated procedure well. There were no immediate complications. Initial and final counts of sponges and instruments were correct. Estimated blood loss was about 25 cc. The patient was extubated without difficulty and transferred to the recovery room with stable vital signs.
[2022-11-07] MEDS: oxyCODONE HCl Immed Release 5 MG TABLET PO (10:34)
[2022-11-07] MEDS: fentaNYL citrate/PF 100 MCG/2 ML VIAL 50 MCG IVPUSH ×2 (10:59→11:07)
== END 2022-11-07 12:05 | disposition home or self-care (01) ==
PROVIDERS: PCP Internal Medicine; Visit Provider Surgery
PROC: (CPT 46260; principal; 2022-11-07 09:40)
PROC: (CPT 46260; 2022-11-07 09:40)
DX: K64.8 Other hemorrhoids (principal); K64.4 Residual hemorrhoidal skin tags; E78.5 Hyperlipidemia, unspecified; R56.9 Unspecified convulsions; Z79.1 Long term (current) use of non-steroidal anti-inflammatories (NSAID); Z79.899 Other long term (current) drug therapy
CPT/HCPCS: 46260; 88304; J1885; J2405; J3010

== ENCOUNTER → 2022-11-10 09:02 | Outpatient (BNVA) | payer MEDICARE, SELFPAY | PROVIDERS: PCP Internal Medicine; Visit Provider Nurse Practitioner Family | DX: R97.20 Elevated prostate specific antigen [PSA] (principal); R39.15 Urgency of urination; R39.12 Poor urinary stream; R35.1 Nocturia | CPT/HCPCS: 99202 ==

== ENCOUNTER → 2022-11-20 08:47 | Outpatient (BNVA) | payer MEDICARE, SELFPAY | PROVIDERS: PCP Internal Medicine; Visit Provider Surgery | DX: Z48.815 Encounter for surgical aftercare following surgery on the digestive system (principal); Z87.19 Personal history of other diseases of the digestive system | CPT/HCPCS: 99212 ==

== ENCOUNTER 2022-12-18 08:48 | Outpatient (AMB) | payer MEDICARE, SELFPAY ==
--- NOTE | 2022-12-18 08:52 | MHC.OFFVIS ---
Intake Vital Signs 12/18/22 09:01 Weight 235 lb BP 132/71 Blood Pressure Location Rt brachial Position Sitting Pulse 83 Intake Visit Reasons: S/P hemorrhoidectomy, 1 mo follow up Intake Note: This patient presents for a one month follow-up assessment status post hemorrhoidectomy. Patient c/o: rectal bleeding, I still feel a bump , straining with bowel movements, occasional constipation, describes pain when walks for prolong periods of time, inflammation. Reliability Technicians Required: No Accompanied by: Self / Same As Patient Allergies No Known Allergies Allergy (Verified 12/18/22 08:53) Medication List - Last Reconciled 12/18/22 by Grant Yang MD carbamazepine 200 mg PO TID docusate sodium (Colace) 100 mg PO BID hydrocortisone acetate (Anusol-HC) 25 mg NM BID lidocaine 5% (Lidoderm) 1 patch topical DAILY PRN MDD remove after 12 hours phenytoin sodium extended 100 caps PO polyethylene glycol 3350 (Miralax) 17 grams PO DAILY pravastatin 20 mg PO DAILY tamsulosin 0.4 mg PO BEDTIME 30 days HPI S/P hemorrhoidectomy, 1 mo follow up HPI Details He is here for postop visit after hemorrhoidectomy about 6 weeks ago. He says he is feeling better. He occasionally sees small amounts of blood on wiping. He says his pain has improved significantly. He says he feels a little bump on the area. [facility] Medical History Bleeding hemorrhoids Hyperlipidemia Seizure Surgical History H/O hemorrhoidectomy (~11/07/22) Hx of colonoscopy Family History Brother Cancer of unknown origin Social History Alcohol intake: never Patient Tobacco Use Status: Never used Tobacco Review of Systems Const Denies chills and Denies fever(s) Card Denies chest pain, Denies dyspnea and Denies dyspnea on exertion Resp Denies cough, Denies dyspnea and Denies dyspnea on exertion GI Reports hematochezia and Denies change in bowel habits Denies hematuria and Denies difficulty urinating Musc Denies back pain and Denies limited range of motion Neuro Denies focal weakness and Denies convulsions Psych Denies depression and Denies mood swings Physical Exam Vital Signs: Last Vital Signs Pulse 83 12/18/22 09:01 BP 132/71 12/18/22 09:01 Const General: comfortable and no acute distress Resp Effort & Inspection: normal respiratory effort Cardio Rate: regular rate GI Other: Rectal exam - hemorrhoidectomy site continues to heal, some residual edema on the area, no discharge, no cellulitis no significant tenderness Assessment & Plan Assessment & Plan (1) Bleeding hemorrhoids: Code(s): K64.9 - Unspecified hemorrhoids Plan: Status post hemorrhoidectomy. His surgical site continues to heal. I told him that it will take a few more weeks for this to completely heal. I reminded him to continue doing warm soaks to the area and to keep it clean and dry as well. I told him that he is welcome to call the office and come back if he wants the area re-evaluated or if you have questions down the line. Coding Level of Care Code Global (98835) Diagnoses Bleeding hemorrhoids K64.9
[2022-12-18 09:01] VITALS: BP 132/71; PULSE 83
== END 2022-12-18 09:12 | disposition home or self-care (01) ==
PROVIDERS: PCP Internal Medicine; Visit Provider Surgery
DX: K64.9 Unspecified hemorrhoids (principal)
CPT/HCPCS: 99024

== ENCOUNTER → 2022-12-18 08:48 | Outpatient (BNVA) | payer MEDICARE, SELFPAY | PROVIDERS: PCP Internal Medicine; Visit Provider Surgery ==

== ENCOUNTER 2022-12-18 09:15 | Outpatient (REF) | payer MEDICARE, SELFPAY ==
[2022-12-18 11:23] LABS: PSA,Total (Free>4and<10) 2.15 ng/mL (0.00-4.00)
== END 2022-12-18 09:16 | disposition home or self-care (01) ==
LOC: HO.10HDL 09:15
PROVIDERS: Visit Provider Nurse Practitioner Family
DX: Z12.5 Encounter for screening for malignant neoplasm of prostate (principal); R97.20 Elevated prostate specific antigen [PSA]
CPT/HCPCS: 36415; 84153

== ENCOUNTER 2022-12-24 15:50 | Outpatient (REF) | payer MEDICARE, SELFPAY ==
--- NOTE | ~2022-12-24 | US_ITS ---
EXAMINATION: US RETROPERITONEAL LIMITED (RENAL ONLY) CLINICAL INFORMATION: Poor urinary stream. COMPARISON: CT abdomen and pelvis 09/27/2014. CT abdomen and pelvis 12/23/2007. TECHNIQUE: Real-time imaging of the kidneys. FINDINGS: RIGHT KIDNEY: 10.1 x 5.1 x 5.9 cm (SAG x AP x TRV). The kidney is normal in size, contour, and echogenicity. Renal cortical thickness is normal. There is a 5.1 x 4.9 x 4.4 cm hyperechoic lesion exophytic to the lateral mid right kidney. This was not seen on prior CT August 2014. No renal calculi or hydronephrosis. LEFT KIDNEY: 11.1 x 6.0 x 5.7 cm (SAG x AP x TRV). The kidney is normal in size, contour, and echogenicity. Renal cortical thickness is normal. No calculi or focal parenchymal lesions. No hydronephrosis. US/US retroperitoneal limited IMPRESSION: 5 cm hyperechoic right renal mass. Follow-up MR or CT of the kidneys with and without IV contrast recommended. Normal left kidney. Findings will be communicated by the [employer] work flow inter[employer] customer service.
== END 2022-12-24 15:51 | disposition home or self-care (01) ==
LOC: HO.US 15:50
PROVIDERS: PCP Internal Medicine; Visit Provider Nurse Practitioner Family
DX: R39.12 Poor urinary stream (principal); R39.15 Urgency of urination; R97.20 Elevated prostate specific antigen [PSA]; R35.1 Nocturia
CPT/HCPCS: 76775

== ENCOUNTER 2022-12-31 14:45 | Outpatient (REF) | payer MEDICARE, SELFPAY ==
--- NOTE | ~2022-12-31 | US_ITS ---
EXAMINATION: US PELVIS LIMITED (BLADDER) CLINICAL INFORMATION: Weak urinary stream. Urinary urgency. COMPARISON: Ultrasound retroperitoneal limited (renal only) 12/24/2022. CT abdomen and pelvis with contrast 09/27/2014. TECHNIQUE: Real-time imaging of the bladder. FINDINGS: BLADDER: Well distended and normal. Bilateral ureteral jets are demonstrated. Prevoid bladder volume is 192 mL. Postvoid bladder volume is 62.9 mL. Bladder is mildly thick-walled. ADDITIONAL FINDINGS: Prostate is enlarged with a volume of 132 mL with a hypertrophied median lobe protruding into the base of the bladder. US/US bladder IMPRESSION: 1. Bladder is mildly thick-walled which may reflect cystitis or sequelae of chronic bladder outlet obstruction. 2. Prostate is enlarged with a volume of 132 mL with a hypertrophied median lobe protruding into the base of the bladder. 3. Small postvoid bladder residual of 62.9 mL.
== END 2022-12-31 14:46 | disposition home or self-care (01) ==
LOC: HO.US 14:45
PROVIDERS: PCP Internal Medicine; Visit Provider Nurse Practitioner Family
DX: N40.0 Benign prostatic hyperplasia without lower urinary tract symptoms (principal)
CPT/HCPCS: 76857

== ENCOUNTER 2023-02-26 12:52 | Outpatient (AMB) | payer MEDICARE, SELFPAY ==
--- NOTE | 2023-02-26 13:04 | A.OFFVIS_ITS ---
Intake Vital Signs 02/26/23 13:10 Weight 238 lb Intake Visit Reasons: Bleeding hemorrhoids Intake Note: This patient presents for an assessment for bleeding hemorrhoids, history of hemorrhoidectomy 11/07/22. Patient c/o; occasional rectal bleeding, reports had a episode on Thursday02/22/23 for rectal bleeding and severe pain, patient ? infection, reports had to take Ibuprofen 800mg on Thursday02/22/23 for the pain. Videographer Required: No Accompanied by: Self / Same As Patient Allergies No Known Allergies Allergy (Verified 02/26/23 13:13) Medication List - Last Reconciled 02/26/23 by Grant Yang MD carbamazepine 200 mg PO TID docusate sodium (Colace) 100 mg PO BID hydrocortisone acetate (Anusol-HC) 25 mg NV BID lidocaine 5% (Lidoderm) 1 patch topical DAILY PRN MDD remove after 12 hours phenytoin sodium extended 100 caps PO polyethylene glycol 3350 (Miralax) 17 grams PO DAILY pravastatin 20 mg PO DAILY tamsulosin 0.4 mg PO BEDTIME 30 days HPI Bleeding hemorrhoids HPI Details He had undergone hemorrhoidectomy last October, and he is here for follow-up visit. He does state that he has occasional blood per rectum once in a while with bowel movements. He did state that about days ago, he had so significant blood after bowel movement. He had pain at that time as well. He denies constipation. He says that he does not see blood all the time. [facility] Medical History Bleeding hemorrhoids Hyperlipidemia Seizure Surgical History H/O hemorrhoidectomy (~11/07/22) Hx of colonoscopy Family History Brother Cancer of unknown origin Social History Alcohol intake: never Patient Tobacco Use Status: Never used Tobacco Review of Systems Const Denies chills and Denies fever(s) Card Denies chest pain at rest Resp Denies cough GI Denies abdominal pain and Reports hematochezia Physical Exam Const General: comfortable and no acute distress Resp Effort & Inspection: normal respiratory effort GI Other: Rectal exam shows the hemorrhoidectomy sites to be generally well healed, with some residual external hemorrhoids, non bulky on both sides Palpation (GI): Soft to palpation Office Procedures Anoscopy He was in barbara-knife position. The anoscope was gently inserted. A full examination of the anal canal was done. He did have some other hemorrhoidal columns although these were non bulky. These were a mix of both internal external. There were no lesions seen. He did have some tenderness,not severe. There was no bleeding. [id number] Assessment & Plan Assessment & Plan (1) Bleeding hemorrhoids: Code(s): K64.9 - Unspecified hemorrhoids Plan: He had undergone hemorrhoidectomy last October,. He still notices passage of bright blood per rectum once in a while. He says he also has pain occasionally He does have residual hemorrhoids. I told him that I would not recommend proceeding with a repeat hemorrhoidectomy at this time. I would wait for a few more months before he would should consider that I will see him again in the office in about 2-3 months therefore. I instructed him to avoid straining and constipation. Coding Level of Care Code Est Pt Level 3 (89691) Diagnoses Bleeding hemorrhoids K64.9 CPT Codes Details - CPT: [id number] ([id number])
== END 2023-02-26 13:32 | disposition home or self-care (01) ==
PROVIDERS: PCP Internal Medicine; Visit Provider Surgery
DX: K64.9 Unspecified hemorrhoids (principal)
CPT/HCPCS: 46600; 99213

== ENCOUNTER → 2023-02-26 12:52 | Outpatient (BNVA) | payer MEDICARE, SELFPAY | PROVIDERS: PCP Internal Medicine; Visit Provider Surgery | DX: K64.4 Residual hemorrhoidal skin tags (principal); K64.8 Other hemorrhoids | CPT/HCPCS: 46600; 99212 ==

== ENCOUNTER 2023-03-27 08:24 | Outpatient (AMB) | payer MEDICARE, OTHER, SELFPAY ==
--- NOTE | 2023-03-27 08:26 | MHC.OFFVIS ---
Intake Intake Visit Reasons: follow up/US/labs(set) Intake Note: Pt presents to the office today for a follow up US/labs. Physical Medicine Physician Required: No Accompanied by: Self / Same As Patient Allergies No Known Allergies Allergy (Verified 03/29/23 13:09) Medication List - Last Reconciled 03/29/23 by JOEY Awad carbamazepine 200 mg PO TID finasteride 5 mg PO DAILY 90 days ibuprofen 600 mg PO TID PRN pravastatin 20 mg PO DAILY tamsulosin 0.4 mg PO BEDTIME 90 days HPI HPI Comments History of Present Illness Details Myron is a pleasant 62-year-old male patient of Dr. Lopez. He has a past medical history of hemorrhoids, seizures, and hyperlipidemia. He presents to the office today for a follow up. Of note, patient was seen approximately 4 months ago as a new patient for elevated PSA at which time redraw of PSA was ordered and a retroperitoneal ultrasound for further assessment evaluation. These results were reviewed with the patient today. Right kidney with 5.1 x 4.9 x 4.4 cm hyperachoic exophytic to the level mid right kidney. This was not seen on prior CT in August of 2014. No renal calculi or hydronephrosis. Left kidney is normal in size, contour, and echogenicity. No renal calculi, lesions, and or hydronephrosis noted. Follow-up MRI or CT of the kidneys with and without IV contrast is recommended. The bladder is well distended and normal. Bilateral ureteral jets are demonstrated. Pre void bladder volume is approximately 200 mL. Postvoid bladder volume is approximately 60 mL. Bladder wall is mildly thickened. Prostate is enlarged with a volume approximately 132 mL and noted with a hypertrophied median lobe protruding into the base of the bladder. Discussed at length obtaining MRI for further assessment evaluation. PSA results review and noted below. When asked patient reports urinary urgency, nocturia, and weak urinary stream. He reports feeling tamsulosin helped his lower urinary tract symptoms. Discussed trial finasteride. In office urinalysis results reviewed with the patient today. He otherwise denies incontinence, hematuria, dysuria, foul smelling urine, flank pain, fever, and or chills. 11/17--1.0 06/23--6.3 12/21--2.2 [facility] Medical History Bleeding hemorrhoids Hyperlipidemia Seizure Surgical History H/O hemorrhoidectomy (~11/07/22) Hx of colonoscopy Family History Brother Cancer of unknown origin Social History Alcohol intake: never Patient Tobacco Use Status: Never used Tobacco Review of Systems Const Reports as per HPI Eyes Reports no additional complaints ENT Reports no additional complaints Card Reports as per HPI Resp Reports no additional complaints GI Reports as per HPI Reports as per HPI Musc Reports no additional complaints Neuro Reports as per HPI Psych Reports no additional complaints Endo Reports no additional complaints Jerrell/Lymph Reports no additional complaints Aller/Immun Reports no additional complaints Physical Exam Const General: cooperative, healthy appearing, comfortable, no acute distress, well developed, alert and awake Orientation/consciousness: patient oriented x3 Limitations: no limitations HEENT Head: Yes normal to inspection, Yes normocephalic and Yes atraumatic Ears: hearing grossly normal bilaterally Eyes General: appearance normal, both eyes and all related structures Neck Neck: Yes normal visual inspection and Yes trachea midline Chest Chest palpation & inspection: normal inspection of the chest Resp Effort & Inspection: normal respiratory effort and able to speak in complete sentences Cardio Rate: regular rate GI Inspection: Yes normal to inspection General: Yes no CVA tenderness Back/Spine/Pelvis Back: no CVA tenderness Skin General skin exam: no rashes or lesions noted Neuro General: patient oriented x3 Extrem General: Yes normal to inspection Psych Appearance: grossly normal and well kempt Mental Status: mental status grossly normal Speech and movement: Normal speech and movement present and Clear speech present Affect: normal affect Attitude: cooperative Thought process: Normal thought process present Thought content: Normal thought content present Insight: Good insight present (Psych) Judgement: Good judgement present (Psych) Results Reviewed Results Reviewed: Date of Service: 12/24/22 EXAMINATION: US RETROPERITONEAL LIMITED (RENAL ONLY) CLINICAL INFORMATION: Poor urinary stream. COMPARISON: CT abdomen and pelvis 09/27/2014. CT abdomen and pelvis 12/23/2007. TECHNIQUE: Real-time imaging of the kidneys. FINDINGS: RIGHT KIDNEY: 10.1 x 5.1 x 5.9 cm (SAG x AP x TRV). The kidney is normal in size, contour, and echogenicity. Renal cortical thickness is normal. There is a 5.1 x 4.9 x 4.4 cm hyperechoic lesion exophytic to the lateral mid right kidney. This was not seen on prior CT August 2014. No renal calculi or hydronephrosis. LEFT KIDNEY: 11.1 x 6.0 x 5.7 cm (SAG x AP x TRV). The kidney is normal in size, contour, and echogenicity. Renal cortical thickness is normal. No calculi or focal parenchymal lesions. No hydronephrosis. US/US retroperitoneal limited IMPRESSION: 5 cm hyperechoic right renal mass. Follow-up MR or CT of the kidneys with and without IV contrast recommended. Normal left kidney. Date of Service: 12/31/22 EXAMINATION: US PELVIS LIMITED (BLADDER) FINDINGS: BLADDER: Well distended and normal. Bilateral ureteral jets are demonstrated. Prevoid bladder volume is 192 mL. Postvoid bladder volume is 62.9 mL. Bladder is mildly thick-walled. ADDITIONAL FINDINGS: Prostate is enlarged with a volume of 132 mL with a hypertrophied median lobe protruding into the base of the bladder. US/US bladder IMPRESSION: 1. Bladder is mildly thick-walled which may reflect cystitis or sequelae of chronic bladder outlet obstruction. 2. Prostate is enlarged with a volume of 132 mL with a hypertrophied median lobe protruding into the base of the bladder. 3. Small postvoid bladder residual of 62.9 mL. Assessment & Plan Assessment & Plan (1) Bladder wall thickening: Code(s): N32.89 - Other specified disorders of bladder (2) Enlarged prostate: Code(s): N40.0 - Benign prostatic hyperplasia without lower urinary tract symptoms (3) Right renal mass: Code(s): N28.89 - Other specified disorders of kidney and ureter (4) Urinary urgency: Code(s): R39.15 - Urgency of urination (5) Weak urinary stream: Code(s): R39.12 - Poor urinary stream (6) Nocturia: Code(s): R35.1 - Nocturia Plan In office urinalysis results reviewed with the patient today; as noted above. Recent retroperitoneal ultrasound results reviewed with the patient today; as noted above. Will obtain MRI of the kidney with without contrast for further assessment evaluation. Continue Flomax as discussed and prescribed; patient reports significant improvement in lower urinary tract symptoms on this medication; will continue; refill provided Start finasteride as discussed and prescribed. Discussed near future in office cystoscopy for further assessment evaluation. Patient reports to be happy with current voiding parameters on 0.4 mg of Flomax daily. Recent PSA results reviewed with the patient today; as noted above Follow-up in 1 month with imaging to be completed prior; or sooner with any issues, concerns, and or questions. Orders: Orders MR kidney wo/w con 03/27/23 N28.89 - Other specified disorders of kidney and ureter PSA,Total (Free>4and<10) 4 Months R97.20 - Elevated prostate specific antigen [PSA] Medications: New finasteride 5 mg PO DAILY 90 days 90 tabs 3RF N32.0 - Bladder-neck obstruction tamsulosin 0.4 mg PO BEDTIME 90 days 90 caps 3RF N40.1 - Benign prostatic hyperplasia with lower urinary tract symptoms, R35.1 - Nocturia Patient Instructions: The patient had an opportunity to ask questions regarding the treatment plan. All questions were answered. Physical exam, labs, and imaging were discussed and reviewed in detail. As well as risks, benefits, and discussion of treatment choices. No major barriers to understanding were identified. The patient expressed understanding and agreement with the above treatment plan. The patient was made aware they should contact our office by phone for worsening of their current condition, the appearance of new symptoms, or with any questions or concerns. Compliance is encouraged with any medications and follow up testing that is ordered. It is a privilege to be allowed the opportunity to participate in? your urological care.? Again, if you have any questions or concerns If you have any questions or concerns please do not hesitate to contact me. The office is [phone]. This note is constructed using voice recognition software. While every effort has been made to ensure accuracy industrial equipment mechanic errors may have been included. Yours sincerely, LUKE Awad-NICK Coding Level of Care Code Est Pt Level 4 (32868) Diagnoses Bladder wall thickening N32.89 Enlarged prostate N40.0 Right renal mass N28.89 Urinary urgency R39.15 Weak urinary stream R39.12 Nocturia R35.1
== END 2023-03-27 09:14 | disposition home or self-care (01) ==
PROVIDERS: PCP Internal Medicine; Visit Provider Nurse Practitioner Family
DX: N32.89 Other specified disorders of bladder (principal); N40.0 Benign prostatic hyperplasia without lower urinary tract symptoms; N28.89 Other specified disorders of kidney and ureter; R39.15 Urgency of urination; R39.12 Poor urinary stream; R35.1 Nocturia
CPT/HCPCS: 99214

== ENCOUNTER → 2023-03-27 08:24 | Outpatient (BNVA) | payer MEDICARE, SELFPAY | PROVIDERS: PCP Internal Medicine; Visit Provider Nurse Practitioner Family | DX: N32.89 Other specified disorders of bladder (principal); N40.0 Benign prostatic hyperplasia without lower urinary tract symptoms; N28.89 Other specified disorders of kidney and ureter; R39.15 Urgency of urination; R39.12 Poor urinary stream; R35.1 Nocturia | CPT/HCPCS: 99212 ==

== ENCOUNTER 2023-04-13 06:45 | Outpatient (REF) | payer MEDICARE, OTHER, SELFPAY ==
[2023-04-13 06:57] LABS: MANUAL DIFF FLAG NO
[2023-04-13 07:46] LABS: Basophils Percent Auto 0.4 % (0-2); Eosinophils Absolute Auto 0.2 X10*3/uL (0.0-0.4); Eosinophils Percent Auto 2.8 % (0-4); Hematocrit 47.1 % (42.0-52.0); Hemoglobin 15.6 g/dl (14.0-18.0); Imm Gran Abs Auto 0.02 X10*3/uL (0.00-0.03); Imm Gran Pct Auto 0.4 % (0.0-0.4); Lymphocytes Absolute Auto 1.2 X10*3/uL (1.2-4.9); Lymphocytes Percent Auto 21.3 % (20-40); Mean Corpuscular HGB Conc 33.1 g/dl (31.0-36.0); Mean Corpuscular Hemoglobin 29.4 pg (27.0-33.0); Mean Corpuscular Volume 88.9 fL (80.0-98.0); Mean Platelet Volume 9.2 fL (9.4-12.4); Monocytes Absolute Auto 0.6 X10*3/uL (0.1-1.2); Neutrophils Absolute Auto 3.5 x10*3/uL (2.0-8.3); Neutrophils Percent Auto 64.1 % (45-73); Platelet Count 216 X10*3/uL (160-400); Red Cell Distribution Width 12.6 % (11.0-16.0); White Blood Count 5.4 X10*3/uL (4.8-10.8)
[2023-04-13 07:53] LABS: Estimated Average Glucose 134 mg/dL; Hemoglobin A1c % 6.3 % (<6.0)
[2023-04-13 08:05] LABS: Alanine Aminotransferase 35 U/L (0-40); Alkaline Phosphatase 104 U/L (39-117); Anion Gap 12 (12-20); Aspartate Amino Transferase 19 U/L (5-37); Bilirubin Total 0.4 mg/dL (0.0-1.0); Blood Urea Nitrogen 19 mg/dL (9-16); Calcium 9.1 mg/dL (8.4-10.2); Carbon Dioxide 27 mmol/L (22-29); Chloride 105 mmol/L (96-108); Cholesterol 206 mg/dL (<200); Estimated Glomerular Filt Rate 50; Glucose Fasting 134 mg/dL (60-99); HDL Cholesterol 47 mg/dL (>40); LDL Cholesterol Calculated 140 mg/dL (<100); Potassium 4.1 mmol/L (3.3-5.1); Sodium 140 mmol/L (135-145); Total Protein 6.6 g/dL (6.5-8.0); Triglycerides 95 mg/dL (<150)
[2023-04-13 08:42] LABS: Phenytoin Dilantin < 1.8 ug/mL (10.0-20.0)
[2023-04-13 09:51] LABS: Creatinine Urine 139.84 mg/dL; Microalbumin Urine < 5.0 mg/L
== END 2023-04-13 06:46 | disposition home or self-care (01) ==
LOC: HO.LAB 06:45
PROVIDERS: PCP Internal Medicine; Visit Provider Internal Medicine
DX: N40.0 Benign prostatic hyperplasia without lower urinary tract symptoms (principal); E78.00 Pure hypercholesterolemia, unspecified; G40.909 Epilepsy, unspecified, not intractable, without status epilepticus; E11.9 Type 2 diabetes mellitus without complications
CPT/HCPCS: 36415; 80053; 80061; 80156; 80185; 82570; 83036; 85025

== ENCOUNTER 2023-05-06 08:43 | Outpatient (AMB) | payer MEDICARE, SELFPAY ==
--- NOTE | 2023-05-06 08:44 | A.OFFVIS_ITS ---
Intake Vital Signs 05/06/23 08:54 Weight 242 lb BP 137/76 Blood Pressure Location Rt brachial Position Sitting Pulse 107 H Intake Visit Reasons: Residual bleeding hemorrhoids, 2 month follow up Intake Note: This patient presents for a two month follow-up assessment for bleeding hemorrhoids, history of hemorrhoidectomy 11/07/22. Patient c/o; reports no rectal bleeding at this time. Certified Industrial Hygienist Required: No Accompanied by: Self / Same As Patient Allergies No Known Allergies Allergy (Verified 05/06/23 08:55) Medication List - Last Reconciled 05/06/23 by Grant Yang MD carbamazepine 200 mg PO TID finasteride 5 mg PO DAILY 90 days ibuprofen 600 mg PO TID PRN pravastatin 20 mg PO DAILY tamsulosin 0.4 mg PO BEDTIME 90 days HPI Residual bleeding hemorrhoids, 2 month follow up HPI Details I had seen him last January, for some periodic passage of bright blood per rectum after hemorrhoidectomy in October,. I had asked him to for follow-up visit. He did have some small residual hemorrhoidal tissue. He now says that he does not have any bleeding anymore. He says he feels well. He denies any problems with bowel movements. He says that he is not constipated and states that taking apple juice daily helps him with this. [facility] Medical History Bleeding hemorrhoids Hyperlipidemia Seizure Surgical History H/O hemorrhoidectomy (~11/07/22) Hx of colonoscopy Family History Brother Cancer of unknown origin Social History Alcohol intake: never Patient Tobacco Use Status: Never used Tobacco Review of Systems Const Denies chills and Denies fever(s) Card Denies chest pain, Denies dyspnea and Denies dyspnea on exertion Resp Denies cough, Denies dyspnea and Denies dyspnea on exertion GI Denies hematochezia and Denies change in bowel habits Denies hematuria and Denies difficulty urinating Musc Denies back pain and Denies limited range of motion Neuro Denies focal weakness and Denies convulsions Psych Denies depression and Denies mood swings Physical Exam Vital Signs: Last Vital Signs Pulse 107 H 05/06/23 08:54 BP 137/76 05/06/23 08:54 Const General: comfortable and no acute distress Resp Effort & Inspection: normal respiratory effort Cardio Rate: regular rate GI Other: Protuberant, soft, rectal exam shows small external hemorrhoids, no bleeding Assessment & Plan Assessment & Plan (1) Bleeding hemorrhoids: Code(s): K64.9 - Unspecified hemorrhoids Plan: He says that he has had no further bleeding. He had hemorrhoidectomy last October, due but does have residual external hemorrhoids I have reminded him to avoid straining and constipation. He says that intake of apple juice regularly helps him with this. I did remind him that fiber supplementation would be beneficial He can follow up on a p.r.n. basis. Coding Level of Care Code Est Pt Level 3 (99348) Diagnoses Bleeding hemorrhoids K64.9
[2023-05-06 08:54] VITALS: BP 137/76; PULSE 107
== END 2023-05-06 09:14 | disposition home or self-care (01) ==
PROVIDERS: PCP Internal Medicine; Visit Provider Surgery
DX: K64.9 Unspecified hemorrhoids (principal)
CPT/HCPCS: 99213

== ENCOUNTER → 2023-05-06 08:43 | Outpatient (BNVA) | payer MEDICARE, SELFPAY | PROVIDERS: PCP Internal Medicine; Visit Provider Surgery | DX: K64.9 Unspecified hemorrhoids (principal) | CPT/HCPCS: 99212 ==

== ENCOUNTER 2023-05-18 09:06 | Outpatient (REF) | payer MEDICARE, SELFPAY ==
--- NOTE | ~2023-05-18 | MR_ITS ---
EXAMINATION: MRI KIDNEY WITHOUT AND WITH CONTRAST. INDICATION: Right-sided abdominal pain, hyperechoic right renal mass found on ultrasound examination. COMPARISON: Ultrasound of the kidneys on 12/24/2022 TECHNIQUE: Examination was performed in a high field strength MRI scanner. Multiplanar multiphasic imaging of the abdomen was performed without IV contrast enhancement. Multiphasic Axial T1 weighted fat suppressed images of the upper abdomen were obtained after IV injection of 10 mL Gadavist. Coronal T1 weighted fat-suppressed images of the abdomen were obtained following the dynamic axial series. FINDINGS: LIVER: The liver shows peripheral T2 hyperintense nonenhancing simple cysts including the largest 0.9 cm cyst at medial capsular border of right hepatic lobe segment 5 and tiny 0.5 cm simple cyst at anterior lateral corner of left hepatic lobe segment 2. The calculated hepatic fat percentage is 10.4%, compatible with mild hepatic steatosis. HEPATOBILIARY: Gallbladder contains a large 2.0 cm gallstone. Common bile duct is not dilated. PANCREAS: No focal pancreatic lesion with abnormal signal can be seen. SPLEEN: Spleen is normal in size without focal lesion. ADRENAL: Bilateral adrenal glands are normal in shape and size. KIDNEYS: Bilateral kidneys are normal in size with a heterogeneous exophytic mass lesion protruding from posterior mid right renal cortex, measuring 4.8 cm in AP diameter, 4.5 cm in width, 6.2 cm in vertical height, showing multiple focal T1 hyperintense, T2 hyperintense hemorrhagic components, marked rim enhancement and additional enhancing nodular protrusion with obtuse margins up to 1.9 cm in thickness in addition to multiple enhancing internal septations. MR/MR kidney wo/w con IMPRESSION: 1. A Bosniak category 4 lesion is seen protruding from posterior mid right renal cortex. Surgical excision is recommended. 2. A large gallstone is present. No evidence of hepatobiliary duct dilatation. 3. Mild hepatic steatosis is present. At least 2 subcapsular hepatic simple cysts are found. 3. No focal pancreatic lesion is found.
[2023-05-18] MEDS: gadobutroL 10 ML VIAL IVPUSH (09:54)
== END 2023-05-18 09:07 | disposition home or self-care (01) ==
LOC: HO.MRI 09:06
PROVIDERS: PCP Internal Medicine; Visit Provider Nurse Practitioner Family
DX: N28.89 Other specified disorders of kidney and ureter (principal)
CPT/HCPCS: 74181; A9585

== ENCOUNTER 2023-05-26 08:23 | Outpatient (AMB) | payer MEDICARE, OTHER, SELFPAY ==
--- NOTE | 2023-05-26 09:44 | A.OFFVIS_ITS ---
Intake Intake Visit Reasons: 1m/MRI(set) Intake Note: Patient presents to the office today for a follow up MRI (imaging 05/18/23) Urology Medications: finasteride, tamsulosin Blood Thinner none Wafer Machine Operator Required: No Accompanied by: Self / Same As Patient Allergies No Known Allergies Allergy (Verified 05/26/23 10:30) Medication List - Last Reconciled 05/26/23 by JOEY Awad carbamazepine 200 mg PO TID finasteride 5 mg PO DAILY 90 days ibuprofen 600 mg PO TID PRN pravastatin 20 mg PO DAILY tamsulosin 0.4 mg PO BEDTIME 90 days HPI HPI Comments History of Present Illness Details Myron is a pleasant 62-year-old male patient of Dr. Lopez. He has a past medical history of hemorrhoids, seizures, and hyperlipidemia. He presents to the office today for a follow up of his renal lesion and elevated PSA. Recent MRI results reviewed with the patient today. Bilateral kidneys are normal in size with a heterogeneous exophytic mass lesion protruding from posterior mid right renal cortex, measuring 4.8 cm in diameter. 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 Discussed at length findings. Discussed surgical treatment with partial nephrectomy. When asked patient reports improvement in urinary urgency, nocturia, and weak urinary stream on Flomax and finasteride. In office urinalysis results reviewed with the patient today. 3 +glucosuria. Patient reports to be following up with PCP regarding elevated sugars. He otherwise denies incontinence, hematuria, dysuria, foul smelling urine, flank pain, fever, and or chills. PSAs are as follows: 11/17--1.0 10/21--6.3 12/21--2.2 PFSH Medical History Bleeding hemorrhoids Hyperlipidemia Seizure Surgical History H/O hemorrhoidectomy (~11/07/22) Hx of colonoscopy Family History Brother Cancer of unknown origin Social History Alcohol intake: never Patient Tobacco Use Status: Never used Tobacco Review of Systems Const Reports as per HPI Eyes Reports no additional complaints ENT Reports no additional complaints Card Reports as per HPI Resp Reports no additional complaints GI Reports as per HPI Reports as per HPI Musc Reports no additional complaints Neuro Reports as per HPI Psych Reports no additional complaints Endo Reports no additional complaints Jerrell/Lymph Reports no additional complaints Aller/Immun Reports no additional complaints Physical Exam Const General: cooperative, healthy appearing, comfortable, no acute distress, well developed, alert and awake Orientation/consciousness: patient oriented x3 Limitations: no limitations HEENT Head: Yes normal to inspection, Yes normocephalic and Yes atraumatic Ears: hearing grossly normal bilaterally Eyes General: appearance normal, both eyes and all related structures Neck Neck: Yes normal visual inspection and Yes trachea midline Chest Chest palpation & inspection: normal inspection of the chest Resp Effort & Inspection: normal respiratory effort and able to speak in complete sentences Cardio Rate: regular rate GI Inspection: Yes normal to inspection General: Yes no CVA tenderness Back/Spine/Pelvis Back: no CVA tenderness Skin General skin exam: no rashes or lesions noted Neuro General: patient oriented x3 Extrem General: Yes normal to inspection Psych Appearance: grossly normal and well kempt Mental Status: mental status grossly normal Speech and movement: Normal speech and movement present and Clear speech present Affect: normal affect Attitude: cooperative Thought process: Normal thought process present Thought content: Normal thought content present Insight: Good insight present (Psych) Judgement: Good judgement present (Psych) Results AMB Urinalysis, Automated UA Leukoctes 0 Sarah/uL Last Edit by [employer] on 05/26/23 09:56 UA Nitrite Negative Last Edit by [employer] on 05/26/23 09:56 UA Urobilinogen 0.2 mg/dL Last Edit by [employer] on 05/26/23 09:56 UA Protein 0 mg/dL Last Edit by [employer] on 05/26/23 09:56 UA pH 6.0 Last Edit by [employer] on 05/26/23 09:56 UA Blood 0 Tirso/uL Last Edit by [employer] on 05/26/23 09:56 UA Specific Edmondson 1.025 Last Edit by [employer] on 05/26/23 09:56 UA Ketone Negative Last Edit by [employer] on 05/26/23 09:56 UA Bilirubin 0 mg/dL Last Edit by Leo Pereyra on 05/26/23 09:56 UA Glucose 1000 mg/dL Last Edit by Leo Pereyra on 05/26/23 09:56 Results Reviewed Results Reviewed: Laboratory Last Values Urine pH (Auto) 6.0 05/26/23 09:54 Specific Edmondson (Auto) 1.025 05/26/23 09:54 Urine Protein (Auto) 0 mg/dL 05/26/23 09:54 Glucose (UA)(Auto) 1000 mg/dL 05/26/23 09:54 Urine Ketones (Auto) Negative 05/26/23 09:54 Urine Blood (Auto) 0 Tirso/uL 05/26/23 09:54 Urine Nitrite (Auto) Negative 05/26/23 09:54 Urine Bilirubin (Auto) 0 mg/dL 05/26/23 09:54 Urine Urobilinogen (Auto) 0.2 mg/dL 05/26/23 09:54 Leukocyte Esterase (Auto) 0 Sarah/uL 05/26/23 09:54 Date of Service: 05/18/23 Procedure(s): MR kidney wo/w con EXAMINATION: MRI KIDNEY WITHOUT AND WITH CONTRAST. FINDINGS: LIVER: The liver shows peripheral T2 hyperintense nonenhancing simple cysts including the largest 0.9 cm cyst at medial capsular border of right hepatic lobe segment 5 and tiny 0.5 cm simple cyst at anterior lateral corner of left hepatic lobe segment 2. The calculated hepatic fat percentage is 10.4%, compatible with mild hepatic steatosis. HEPATOBILIARY: Gallbladder contains a large 2.0 cm gallstone. Common bile duct is not dilated. PANCREAS: No focal pancreatic lesion with abnormal signal can be seen. SPLEEN: Spleen is normal in size without focal lesion. ADRENAL: Bilateral adrenal glands are normal in shape and size. KIDNEYS: Bilateral kidneys are normal in size with a heterogeneous exophytic mass lesion protruding from posterior mid right renal cortex, measuring 4.8 cm in AP diameter, 4.5 cm in width, 6.2 cm in vertical height, showing multiple focal T1 hyperintense, T2 hyperintense hemorrhagic components, marked rim enhancement and additional enhancing nodular protrusion with obtuse margins up to 1.9 cm in thickness in addition to multiple enhancing internal septations. IMPRESSION: 1. A Bosniak category 4 lesion is seen protruding from posterior mid right renal cortex. Surgical excision is recommended. 2. A large gallstone is present. No evidence of hepatobiliary duct dilatation. 3. Mild hepatic steatosis is present. At least 2 subcapsular hepatic simple cysts are found. 3. No focal pancreatic lesion is found. Assessment & Plan Assessment & Plan (1) Right renal mass: Code(s): N28.89 - Other specified disorders of kidney and ureter (2) Enlarged prostate: Code(s): N40.0 - Benign prostatic hyperplasia without lower urinary tract symptoms (3) Lower urinary tract symptoms: Code(s): R39.9 - Unspecified symptoms and signs involving the genitourinary system (4) Elevated PSA: Code(s): R97.20 - Elevated prostate specific antigen [PSA] Plan In office urinalysis results reviewed with the patient today; as noted above. Recent MRI results reviewed with the patient at length; discussed partial nephrectomy Patient reports be happy with current voiding parameters on finasteride and Flomax daily as prescribed; will continue Patient denies any bothersome urinary issues or concerns at this time Continue follow-up with PCP as planned Follow-up with Dr. Chu to discuss potential for partial nephrectomy with Dr. Gorman and or other treatment options; or sooner with any issues, concerns, and or questions. Orders: Orders AMB Urinalysis Automated Today Z13.9 - Encounter for screening, unspecified Patient Instructions: The patient had an opportunity to ask questions regarding the treatment plan. All questions were answered. Physical exam, labs, and imaging were discussed and reviewed in detail. As well as risks, benefits, and discussion of treatment choices. No major barriers to understanding were identified. The patient expressed understanding and agreement with the above treatment plan. The patient was made aware they should contact our office by phone for worsening of their current condition, the appearance of new symptoms, or with any ques tions or concerns. Compliance is encouraged with any medications and follow up testing that is ordered. It is a privilege to be allowed the opportunity to participate in? your urological care.? Again, if you have any questions or concerns If you have any questions or concerns please do not hesitate to contact me. The office is [phone]. This note is constructed using voice recognition software. While every effort has been made to ensure accuracy java portal developer errors may have been included. Yours sincerely, Radha Calloway, MOTOR ANALYST-BC Coding Level of Care Code Est Pt Level 3 (30099) Diagnoses Right renal mass N28.89 Enlarged prostate N40.0 Lower urinary tract symptoms R39.9 Elevated PSA R97.20
== END 2023-05-26 08:26 | disposition left against medical advice (07) ==
PROVIDERS: PCP Internal Medicine; Visit Provider Nurse Practitioner Family
DX: N28.89 Other specified disorders of kidney and ureter (principal); N40.0 Benign prostatic hyperplasia without lower urinary tract symptoms; R39.9 Unspecified symptoms and signs involving the genitourinary system; R97.20 Elevated prostate specific antigen [PSA]; Z13.9 Encounter for screening, unspecified
CPT/HCPCS: 99213

== ENCOUNTER → 2023-05-26 08:23 | Outpatient (BNVA) | payer MEDICARE, OTHER, SELFPAY | PROVIDERS: PCP Internal Medicine; Visit Provider Nurse Practitioner Family | DX: N28.89 Other specified disorders of kidney and ureter (principal); N40.0 Benign prostatic hyperplasia without lower urinary tract symptoms; R39.9 Unspecified symptoms and signs involving the genitourinary system; R97.20 Elevated prostate specific antigen [PSA] | CPT/HCPCS: 81003; 99212 ==

== ENCOUNTER 2023-06-24 13:11 | Outpatient (AMB) | payer MEDICARE, OTHER, SELFPAY ==
--- NOTE | 2023-06-24 13:25 | MHC.OFFVIS ---
Intake Intake Visit Reasons: 1M Discussion on Nephrectomy w dr greene Intake Note: Patient is Present for Follow Up Dicussion on Nephrectomy Urology Medication: Finasteride, Tamsulosin Antibiotic Allergies: None Blood Thinners: None PVR: 0 Allergies No Known Allergies Allergy (Verified 05/26/23 10:30) HPI HPI Comments History of Present Illness Details Minerva is a pleasant male. He is a patient of Dr. Lopez. He is seen for the following urologic conditions - lower urinary tract symptoms - right renal cancer Discussed MRI imaging results Consistent with high risk of renal cancer Would recommend partial nephrectomy Refer to Dr. Greene [facility] He has concerns about doing procedure prior to September. 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 Switch tamsulosin to terazosin Two month follow-up tele Lower urinary tract symptoms Progressive Nocturia x2 with hesitation Had been on combination finasteride with tamsulosin Adjust tamsulosin to terazosin 5 mg Right renal cancer Incidental diagnosis during evaluation for BPH Imaging with ultrasound showing question of Bosniak 4 cyst on right lower kidney MRI 05/23 - exophytic mass lesion protruding from posterior mid right renal cortex, measuring 4.8 cm in AP diameter, 4.5 cm in width, 6.2 cm in vertical height, showing multiple focal T1 hyperintense, T2 hyperintense hemorrhagic components, marked rim enhancement and additional enhancing nodular protrusion with obtuse margins up to 1.9 cm in thickness in addition to multiple enhancing internal septations PFSH Medical History Bleeding hemorrhoids Hyperlipidemia Seizure Surgical History H/O hemorrhoidectomy (~11/07/22) Hx of colonoscopy Family History Brother Cancer of unknown origin Social History Alcohol intake: never Patient Tobacco Use Status: Never used Tobacco Review of Systems Const Denies chills and Denies fever(s) Card Reports no additional complaints and Denies syncope Resp Denies cough GI Denies abdominal pain and Denies heartburn Reports as per HPI and Denies change in libido Neuro Denies syncope Psych Denies change in libido Endo Denies change in libido Physical Exam Const General: cooperative, healthy appearing, comfortable and no acute distress Orientation/consciousness: patient oriented x3 HEENT Face and sinus: Yes normal facial exam Mouth: moist mucous membranes Neck Neck: Yes normal visual inspection, Yes full ROM and Yes trachea midline Chest Chest palpation & inspection: normal inspection of the chest Resp Effort & Inspection: normal respiratory effort, able to speak in complete sentences and no respiratory distress GI Inspection: Yes normal to inspection Back/Spine/Pelvis Cervical Spine: normal cervical lordosis Thoracic/Lumbar Spine: thoracic and lumbar spine normal to inspection Skin General skin exam: no rashes or lesions noted Neuro General: patient oriented x3, gait normal, tone normal and moves all extremities Extrem General: Yes normal to inspection and Yes capillary refill normal Office Procedures Post Void Residual Post Residual Void Post Void Residual (PVR): 0 [id number]-Ropx Void Residual by ultrasound Assessment & Plan Assessment & Plan (1) Renal cancer: Code(s): C64.9 - Malignant neoplasm of unspecified kidney, except renal pelvis (2) Weak urinary stream: Code(s): R39.12 - Poor urinary stream (3) Bladder wall thickening: Code(s): N32.89 - Other specified disorders of bladder Plan Risks, benefits and alternatives to therapy were discussed. These include but are not limited to infection, bleeding, damage to local organs and tissues, need for further interventions. Anesthetic risks regarding cardiac arrhythmia, blood clots, and potential mortality were discussed. The patient understands the typical recovery time and the outpatient nature of the procedure. After consideration of these risks the patient gives full informed consent and they wish to move ahead with the procedure. Recommend right partial nephrectomy Orders: Orders AMB Post Void Residual by ultrasound Today R35.1 - Nocturia Referrals Urology Referral C64.9 - Malignant neoplasm of unspecified kidney, except renal pelvis Medications: New terazosin 5 mg PO BEDTIME 30 days 30 caps 1RF N40.1 - Benign prostatic hyperplasia with lower urinary tract symptoms, R35.0 - Frequency of micturition, R39.9 - Unspecified symptoms and signs involving the genitourinary system Discontinued tamsulosin Discontinued Reason: Doctor's Order 0.4 mg PO BEDTIME 90 days 90 caps 3RF N40.1 - Benign prostatic hyperplasia with lower urinary tract symptoms, R35.1 - Nocturia Patient Instructions: Imaging studies, laboratory and physical exam results were discussed and reviewed in detail. No major barriers to patient understanding were identified. An opportunity to ask questions regarding the treatment plan was provided. All questions were answered. The patient expressed understanding and agreement with the above treatment plan. The patient is aware they should contact our office by phone for worsening of their current condition or the appearance of new urologic symptoms. Compliance is encouraged with any medications and followup testing that is ordered. It is a privilege to participate in the urologic care of your patient. If you have any questions or concerns regarding treatment for the above conditions, or other urologic issues, please do not hesitate to contact me. The office telephone contact is [phone]. This note is constructed using voice recognition software. While every effort has been made to ensure accuracy nozzle worker errors may have been included. Yours sincerely, Dr Ramy Chu MD, [facility] - Urology Providers of Expert, Compassionate Care for the Genitourinary System Coding Level of Care Code Est Pt Level 4 (51568) Diagnoses Renal cancer C64.9 Weak urinary stream R39.12 Bladder wall thickening N32.89 CPT Codes Post Residual Void - PVR CPT Code: 98141-Husw Void Residual by ultrasound ([id number])
== END 2023-06-24 14:07 | disposition home or self-care (01) ==
PROVIDERS: PCP Internal Medicine; Visit Provider Urology
DX: C64.9 Malignant neoplasm of unspecified kidney, except renal pelvis (principal); R39.12 Poor urinary stream; N32.89 Other specified disorders of bladder
CPT/HCPCS: 99214

== ENCOUNTER → 2023-06-24 13:11 | Outpatient (BNVA) | payer MEDICARE, OTHER, SELFPAY | PROVIDERS: PCP Internal Medicine; Visit Provider Urology | DX: C64.9 Malignant neoplasm of unspecified kidney, except renal pelvis (principal); R39.12 Poor urinary stream; N32.89 Other specified disorders of bladder | CPT/HCPCS: 51798; 99212 ==

== ENCOUNTER 2023-08-02 13:37 | Emergency (ER) | payer MEDICARE, OTHER, SELFPAY ==
[2023-08-02 13:48] VITALS: BP 120/67; PULSE 106; RESP 18; TEMP 37.3; O2SAT 95; BMI 36.5
--- NOTE | 2023-08-02 13:49 | ED_ITS ---
HPI - General Adult General Chief complaint: Upper Respiratory Symptoms Stated complaint: Fever, body aches, congestion Time Seen by Provider: 08/02/23 15:34 Source: patient, RN notes reviewed and old records reviewed Mode of arrival: ambulatory Limitations: no limitations History of Present Illness HPI narrative: 62-year-old male presents for evaluation of fevers, cough, body aches and sore throat. His symptoms started a few days ago. Denies any sick contacts. He took ibuprofen prior to arrival No other complaints or concerns at this time Denies any abdominal pain shortness of breath, chest pain Related Data Home Medications Medication Instructions Recorded Confirmed carbamazepine 200 mg tablet 200 mg PO TID 10/16/22 05/06/23 pravastatin 20 mg tablet 20 mg PO DAILY 10/16/22 05/06/23 Previous Rx's Medication Instructions Recorded ibuprofen 600 mg tablet 600 mg PO TID PRN pain #20 tabs 02/26/23 finasteride 5 mg tablet 5 mg PO DAILY 90 days #90 tabs 03/27/23 terazosin 5 mg capsule 5 mg PO BEDTIME 30 days #30 caps 06/24/23 benzonatate 200 mg capsule 200 mg PO TID PRN cough #20 caps 08/02/23 Allergies Allergy/AdvReac Type Severity Reaction Status Date / Time No Known Allergies Allergy Verified 05/26/23 10:30 Review of Systems Constitutional: Constitutional: Reports chills, Reports fever(s), Reports malaise and Reports weakness ENT: Reports sore throat Cardiovascular: Cardiovascular: Denies chest pain and Denies dyspnea Respiratory: Respiratory: Reports change in phlegm color, Reports cough and Denies dyspnea Gastrointestinal: Gastrointestinal: Denies abdominal pain, Denies nausea and Denies vomiting Musculoskeletal: Musculoskeletal: Denies back pain Neurologic: Reports weakness PMFSH Past Medical History Medical History Bleeding hemorrhoids Hyperlipidemia Seizure Surgical History H/O hemorrhoidectomy (~11/07/22) Hx of colonoscopy Family History Family History Brother Cancer of unknown origin Social History Social History Alcohol intake: never Patient Tobacco Use Status: Never used Tobacco Physical Exam ED Vital Signs: Vital Signs - 24 hr 08/02/23 13:48 Temperature 99.1 F Pulse Rate 106 H Respiratory Rate 18 Blood Pressure 120/67 Pulse Oximetry 95 Oxygen Delivery Method Room Air BMI result Body Mass Index 36.5 Const General: healthy appearing, comfortable, no acute distress, alert and awake Nutritional Appearance: well nourished Orientation/consciousness: patient oriented x3 HENMT Head: Yes normocephalic and Yes atraumatic Eyes Eyelids: Yes eyelids normal Conjunctivae: conjunctivae normal Sclerae: sclerae normal Corneas: corneas normal Pupils: Equal, round and reactive pupils present EOM: EOMs intact bilaterally Neck Neck: Yes full ROM Resp Effort & Inspection: normal respiratory effort, able to speak in complete sentences, no audible wheezes and not labored Auscultation: clear to auscultation bilaterally Skin General skin exam: elasticity normal Neuro General: patient oriented x3 Cranial nerves: Yes Equal, round and reactive pupils present and Yes Bilaterally intact EOM present Cognition (Neuro): normal cognition Extrem Other: Moving all extremities well without any obvious deformities Course Course Course Narrative: RME- 62 year old male presents for evalaution of fevers, cough, and body aches since yesterday. Plan for viral swabs Medical Decision Making Medical Decision Making [facility] Narrative: This 62-year-old male presents for evaluation of flu-like symptoms. Plan for viral swabs. He is afebrile triage but he reports taking ibuprofen about an hour prior to arrival. He is outside the window for Tamiflu treatment. No hypoxia, I do not see any indication for chest x-ray at this time Differential Diagnosis Differential Diagnoses: The differential diagnosis associated with the presentation includes Influenza Viral syndrome COVID-19 Pneumonia less likely Lab Data Labs: Lab Results 08/02/23 Range/Units 14:43 Influenza Type A (PCR) POSITIVE A (Negative) Influenza Type B (PCR) NEGATIVE (Negative) RSV RNA Qual (PCR) NEGATIVE (Negative) SARS-CoV-2 RNA (RT-PCR) NEGATIVE (Negative) S. pyogenes GrpA SARBJIT Negative (Negative) Discharge Plan Discharge Clinical Impression: Influenza A Patient Disposition: Home, Self-Care Instructions: Influenza (ED) Additional Instructions: Use Tylenol as needed for body aches. Use Tessalon Perles as needed for cough Hydrate well Follow-up with your primary doctor Prescriptions: New benzonatate 200 mg capsule 200 mg PO TID PRN (Reason: cough) Qty: 20 0RF No Action carbamazepine 200 mg tablet 200 mg PO TID pravastatin 20 mg tablet 20 mg PO DAILY ibuprofen 600 mg tablet 600 mg PO TID PRN (Reason: pain) Qty: 20 2RF finasteride 5 mg tablet 5 mg PO DAILY 90 Days Qty: 90 3RF terazosin 5 mg capsule 5 mg PO BEDTIME 30 Days Qty: 30 1RF
[2023-08-02 14:57] LABS: IDNOW Serial# 08D9AD1C; Strep A Nucleic Acid Negative (Negative)
[2023-08-02 15:29] LABS: Influenza A PCR POSITIVE (Negative); Influenza B PCR NEGATIVE (Negative); Resp Syncy Virus RNA Qual PCR NEGATIVE (Negative); SARS COV2 PCR INHOUSE NEGATIVE (Negative)
== END 2023-08-02 15:43 | disposition home or self-care (01) ==
LOC: HO.ED 15:39
PROVIDERS: Physician Assistant; Emergency Provider Student in an Organized Health Care Education/Training Program; PCP Internal Medicine
DX: J10.1 Influenza due to other identified influenza virus with other respiratory manifestations (principal); R50.9 Fever, unspecified; M79.10 Myalgia, unspecified site; J02.8 Acute pharyngitis due to other specified organisms; R06.02 Shortness of breath; Z11.52 Encounter for screening for COVID-19; Z20.822 Contact with and (suspected) exposure to COVID-19
CPT/HCPCS: 0241U; 87651; 99282; 99283

== ENCOUNTER 2023-08-26 09:13 | Outpatient (AMB) | payer MEDICARE, OTHER, SELFPAY ==
--- NOTE | 2023-08-26 09:14 | A.OFFVIS_ITS ---
Intake Intake Visit Reasons: 2M Med Review(Terazosin) Intake Note: Patient presents today for a telehealth follow up on Terazosin medication review Meds- Terazosin,Finasteride Allergies to Antibiotic- No Known Allergies Blood thinner: None Zoning Engineer Required: No Allergies No Known Allergies Allergy (Verified 08/26/23 09:16) Medication List - Last Reconciled 08/26/23 by Ramy Chu MD benzonatate 200 mg PO TID PRN carbamazepine 200 mg PO TID finasteride 5 mg PO DAILY 90 days ibuprofen 600 mg PO TID PRN pravastatin 20 mg PO DAILY terazosin 5 mg PO BEDTIME 90 days HPI HPI Comments History of Present Illness Details Maldivian is a pleasant male. He is a patient of Dr. Lopez. He is seen for the following urologic conditions - lower urinary tract symptoms - right renal cancer Telemedicine Evaluation 15 min Consultation [employer] Video attempted Terazosin follow-up Has been more helpful Continue with combination medications Discussed MRI imaging results Consistent with high risk of renal cancer Would recommend partial nephrectomy Second Refer to Dr. Vita Conroy [facility] He has concerns about doing procedure prior to September. 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 Lower urinary tract symptoms Progressive Nocturia x2 with hesitation Had been on combination finasteride with tamsulosin Adjust tamsulosin to terazosin 5 mg Right renal cancer Incidental diagnosis during evaluation for BPH Imaging with ultrasound showing question of Bosniak 4 cyst on right lower kidney MRI 05/23 - exophytic mass lesion protruding from posterior mid right renal cortex, measuring 4.8 cm in AP diameter, 4.5 cm in width, 6.2 cm in vertical height, showing multiple focal T1 hyperintense, T2 hyperintense hemorrhagic components, marked rim enhancement and additional enhancing nodular protrusion with obtuse margins up to 1.9 cm in thickness in addition to multiple enhancing internal septations PFSH Medical History Bleeding hemorrhoids Hyperlipidemia Seizure Surgical History H/O hemorrhoidectomy (~11/07/22) Hx of colonoscopy Family History Brother Cancer of unknown origin Social History Alcohol intake: never Patient Tobacco Use Status: Never used Tobacco Review of Systems Const All systems reviewed & are unremarkable except as noted in HPI and below Reports no additional complaints Resp Reports no additional complaints GI Reports no additional complaints Reports as per HPI Musc Reports no additional complaints Physical Exam Telemedicine evaluation Appropriate responses Regular breathing rate and rhythm HEENT Head: Yes normal to inspection Ears: hearing grossly normal bilaterally Eyes General: appearance normal, both eyes and all related structures Neck Neck: Yes normal visual inspection Chest Chest palpation & inspection: normal inspection of the chest Resp Effort & Inspection: normal respiratory effort and able to speak in complete sentences Assessment & Plan Assessment & Plan (1) Renal cancer: Code(s): C64.9 - Malignant neoplasm of unspecified kidney, except renal pelvis (2) Urinary urgency: Code(s): R39.15 - Urgency of urination (3) Weak urinary stream: Code(s): R39.12 - Poor urinary stream Plan Confirm referral to Dr. Gorman for assessment for partial nephrectomy right renal mass Refill terazosin which was helpful for urination Three-month follow-up with wa Orders: Referrals Urology Referral C64.9 - Malignant neoplasm of unspecified kidney, except renal pelvis Medications: Changed From terazosin 5 mg PO BEDTIME 30 days 30 caps 1RF N40.1 - Benign prostatic hyperplasia with lower urinary tract symptoms, R35.0 - Frequency of micturition, R39.9 - Unspecified symptoms and signs involving the genitourinary system To terazosin 5 mg PO BEDTIME 90 days 90 caps 1RF N40.1 - Benign prostatic hyperplasia with lower urinary tract symptoms, R35.0 - Frequency of micturition, R39.9 - Unspecified symptoms and signs involving the genitourinary system Patient Instructions: Imaging studies, laboratory and physical exam results were discussed and reviewed in detail. No major barriers to patient understanding were identified. An opportunity to ask questions regarding the treatment plan was provided. All questions were answered. The patient expressed understanding and agreement with the above treatment plan. The patient is aware they should contact our office by phone for worsening of their current condition or the appearance of new urologic symptoms. Compliance is encouraged with any medications and followup testing that is ordered. It is a privilege to participate in the urologic care of your patient. If you have any questions or concerns regarding treatment for the above conditions, or other urologic issues, please do not hesitate to contact me. The office telephone contact is [phone]. This note is constructed using voice recognition software. While every effort has been made to ensure accuracy advertising project manager errors may have been included. Yours sincerely, Dr Ramy Chu MD, [facility] - Urology Providers of Expert, Compassionate Care for the Genitourinary System Telehealth Telehealth Location of provider rendering services: practice address Location of patient: address on file Patient Identification confirmed using: Name, : Yes Telehealth method: video Patient verbally consented to treatment: Yes Patient verbally consented to billing insurance company: Yes Patient informed of any privacy concerns related to visit: Yes Coding Level of Care Code Tele Est Pt Level 4 (21108) Diagnoses Renal cancer C64.9 Urinary urgency R39.15 Weak urinary stream R39.12
== END 2023-08-26 11:50 | disposition home or self-care (01) ==
LOC: HO.HUSH 09:14
PROVIDERS: PCP Internal Medicine; Visit Provider Urology
DX: C64.9 Malignant neoplasm of unspecified kidney, except renal pelvis (principal); R39.15 Urgency of urination; R39.12 Poor urinary stream
CPT/HCPCS: 99214

== ENCOUNTER → 2023-08-26 09:13 | Outpatient (BNVA) | payer MEDICARE, OTHER, SELFPAY | PROVIDERS: PCP Internal Medicine; Visit Provider Urology ==

== ENCOUNTER 2023-11-20 09:32 | Outpatient (REF) | payer MEDICARE, OTHER, SELFPAY ==
[2023-11-20 10:46] LABS: MANUAL DIFF FLAG NO
[2023-11-20 10:52] LABS: Basophils Percent Auto 0.9 % (0-2); Eosinophils Absolute Auto 0.2 X10*3/uL (0.0-0.4); Eosinophils Percent Auto 3.4 % (0-4); Hematocrit 44.4 % (42.0-52.0); Hemoglobin 14.9 g/dl (14.0-18.0); Imm Gran Abs Auto 0.01 X10*3/uL (0.00-0.03); Imm Gran Pct Auto 0.2 % (0.0-0.4); Lymphocytes Absolute Auto 1.1 X10*3/uL (1.2-4.9); Lymphocytes Percent Auto 23.9 % (20-40); Mean Corpuscular HGB Conc 33.6 g/dl (31.0-36.0); Mean Corpuscular Hemoglobin 29.6 pg (27.0-33.0); Mean Corpuscular Volume 88.1 fL (80.0-98.0); Mean Platelet Volume 9.5 fL (9.4-12.4); Monocytes Absolute Auto 0.3 X10*3/uL (0.1-1.2); Monocytes Percent Auto 7.7 % (2-11); Neutrophils Absolute Auto 2.8 x10*3/uL (2.0-8.3); Neutrophils Percent Auto 63.9 % (45-73); Platelet Count 187 X10*3/uL (160-400); Red Blood Count 5.04 X10*6/uL (4.60-5.80); Red Cell Distribution Width 13.2 % (11.0-16.0); White Blood Count 4.4 X10*3/uL (4.8-10.8)
[2023-11-20 11:04] LABS: Alanine Aminotransferase 23 U/L (0-40); Albumin Level 3.8 g/dL (3.5-5.0); Alkaline Phosphatase 106 U/L (39-117); Anion Gap 11 (12-20); Aspartate Amino Transferase 14 U/L (5-37); Bilirubin Total 0.2 mg/dL (0.0-1.0); Blood Urea Nitrogen 17 mg/dL (9-16); Carbon Dioxide 26 mmol/L (22-29); Chloride 108 mmol/L (96-108); Estimated Glomerular Filt Rate > 60; Glucose Random 221 mg/dL (60-115); Potassium 4.1 mmol/L (3.3-5.1); Sodium 141 mmol/L (135-145); Total Protein 6.2 g/dL (6.5-8.0)
[2023-11-20 11:08] LABS: Estimated Average Glucose 143 mg/dL; Hemoglobin A1c % 6.6 % (<6.0)
[2023-11-20 11:44] LABS: Microalbumin Urine < 5.0 mg/L
[2023-11-20 13:09] LABS: Carbamazepine Tegretol 3.6 mcg/mL (5.0-12.0); Phenytoin Dilantin 2.7 ug/mL (10.0-20.0)
== END 2023-11-20 09:33 | disposition home or self-care (01) ==
LOC: HO.10HDL 09:32
PROVIDERS: Visit Provider Internal Medicine
DX: R73.03 Prediabetes (principal); N18.9 Chronic kidney disease, unspecified; G40.909 Epilepsy, unspecified, not intractable, without status epilepticus
CPT/HCPCS: 36415; 80053; 80156; 80185; 82043; 82570; 83036; 85025

== ENCOUNTER 2023-11-27 12:47 | Outpatient (AMB) | payer MEDICARE, OTHER, SELFPAY ==
--- NOTE | 2023-11-27 13:14 | MHC.OFFVIS ---
Intake Visit Reasons: 3m follow up Intake Note: Patient is Present for Follow Up Renal Cancer Urology Medication: Terazosin. Finasteride Antibiotic Allergies: None Blood Thinners: None Patient was seen By Dr Gorman and has upcoming kidney surgery on 12/15 Last PVR: 0 Todays PVR: 84ml Audio Engineer Required: No Allergies No Known Allergies Allergy (Verified 11/27/23 13:15) Medication List - Last Reconciled 11/27/23 by Ramy Chu MD benzonatate 200 mg PO TID PRN carbamazepine 200 mg PO TID finasteride 5 mg PO DAILY 90 days ibuprofen 600 mg PO TID PRN pravastatin 20 mg PO DAILY terazosin 5 mg PO BEDTIME 90 days HPI Comments Details: Minerva is a pleasant male. He is a patient of Dr. Lopez. He is seen for the following urologic conditions - lower urinary tract symptoms - right renal cancer Upcoming partial nephrectomy with Dr. Gorman at [facility] - date of procedure December 15 Urinary symptoms well controlledl Continue with combination medications Lower urinary tract symptoms Progressive Nocturia x2 with hesitation Had been on combination finasteride with tamsulosin Adjust tamsulosin to terazosin 5 mg Right renal cancer Incidental diagnosis during evaluation for BPH Imaging with ultrasound showing question of Bosniak 4 cyst on right lower kidney MRI 05/23 - exophytic mass lesion protruding from posterior mid right renal cortex, measuring 4.8 cm in AP diameter, 4.5 cm in width, 6.2 cm in vertical height, showing multiple focal T1 hyperintense, T2 hyperintense hemorrhagic components, marked rim enhancement and additional enhancing nodular protrusion with obtuse margins up to 1.9 cm in thickness in addition to multiple enhancing internal septations PFSH Medical History Bleeding hemorrhoids Hyperlipidemia Seizure Surgical History H/O hemorrhoidectomy (~11/07/22) Hx of colonoscopy Family History Brother Cancer of unknown origin Social History Alcohol intake: never Patient Tobacco Use Status: Never used Tobacco Review of Systems Const Denies chills and Denies fever(s) Card Reports no additional complaints and Denies syncope Resp Denies cough GI Denies abdominal pain and Denies heartburn Reports as per HPI and Denies change in libido Neuro Denies syncope Psych Denies change in libido Endo Denies change in libido Physical Exam Const General: cooperative, healthy appearing, comfortable and no acute distress Orientation/consciousness: patient oriented x3 HEENT Face and sinus: Yes normal facial exam Mouth: moist mucous membranes Neck Neck: Yes normal visual inspection, Yes full ROM and Yes trachea midline Chest Chest palpation & inspection: normal inspection of the chest Resp Effort & Inspection: normal respiratory effort, able to speak in complete sentences and no respiratory distress GI Inspection: Yes normal to inspection Back/Spine/Pelvis Cervical Spine: normal cervical lordosis Thoracic/Lumbar Spine: thoracic and lumbar spine normal to inspection Skin General skin exam: no rashes or lesions noted Neuro General: patient oriented x3, gait normal, tone normal and moves all extremities Extrem General: Yes normal to inspection and Yes capillary refill normal Office Procedures Post Void Residual Post Residual Void Post Void Residual (PVR): 84 [id number] Void Residual by ultrasound Assessment & Plan Assessment & Plan (1) Renal cancer: Code(s): C64.9 - Malignant neoplasm of unspecified kidney, except renal pelvis Category: Medical (2) Lower urinary tract symptoms: Code(s): R39.9 - Unspecified symptoms and signs involving the genitourinary system Category: Medical Plan Four month follow-up imaging and labs Orders: Orders AMB Post Void Residual by ultrasound Today R39.15 - Urgency of urination kidney wo/w con 4 Months C64.9 - Malignant neoplasm of unspecified kidney, except renal pelvis Complete Blood Count no Diff 4 Months C64.9 - Malignant neoplasm of unspecified kidney, except renal pelvis, E29.1 - Testicular hypofunction Basic Metabolic Panel 4 Months C64.9 - Malignant neoplasm of unspecified kidney, except renal pelvis, N20.0 - Calculus of kidney Patient Instructions: Imaging studies, laboratory and physical exam results were discussed and reviewed in detail. No major barriers to patient understanding were identified. An opportunity to ask questions regarding the treatment plan was provided. All questions were answered. The patient expressed understanding and agreement with the above treatment plan. The patient is aware they should contact our office by phone for worsening of their current condition or the appearance of new urologic symptoms. Compliance is encouraged with any medications and followup testing that is ordered. It is a privilege to participate in the urologic care of your patient. If you have any questions or concerns regarding treatment for the above conditions, or other urologic issues, please do not hesitate to contact me. The office telephone contact is [phone]. This note is constructed using voice recognition software. While every effort has been made to ensure accuracy director of rotc errors may have been included. Yours sincerely, Dr Ramy Chu MD, [facility] - Urology Providers of Expert, Compassionate Care for the Genitourinary System Coding Level of Care Code Est Pt Level 3 (75190) Diagnoses Renal cancer C64.9 Lower urinary tract symptoms R39.9 CPT Codes Post Residual Void - PVR CPT Code: 97765-[id number] Void Residual by ultrasound ([id number])
== END 2023-11-27 13:32 | disposition home or self-care (01) ==
PROVIDERS: PCP Internal Medicine; Visit Provider Urology
DX: C64.9 Malignant neoplasm of unspecified kidney, except renal pelvis (principal); R39.9 Unspecified symptoms and signs involving the genitourinary system
CPT/HCPCS: 99213

== ENCOUNTER → 2023-11-27 12:47 | Outpatient (BNVA) | payer MEDICARE, OTHER, SELFPAY | PROVIDERS: PCP Internal Medicine; Visit Provider Urology ==

== ENCOUNTER 2023-11-27 12:57 | Outpatient (REF) | payer MEDICARE, OTHER, SELFPAY ==
[2023-11-27 15:01] LABS: PSA,Total (Free>4and<10) 1.02 ng/mL (0.00-4.00)
== END 2023-11-27 12:58 | disposition home or self-care (01) ==
LOC: HO.10HDL 12:57
PROVIDERS: Visit Provider Nurse Practitioner Family
DX: R97.20 Elevated prostate specific antigen [PSA] (principal); R39.15 Urgency of urination; R35.1 Nocturia; C64.1 Malignant neoplasm of right kidney, except renal pelvis; N20.0 Calculus of kidney; Z12.5 Encounter for screening for malignant neoplasm of prostate
CPT/HCPCS: 36415; 51798; 84153; 99212

== ENCOUNTER 2023-12-01 10:58 | Outpatient (REF) | payer MEDICARE, OTHER, SELFPAY ==
--- NOTE | ~2023-12-01 | CT_ITS ---
EXAMINATION: CT CHEST WITH CONTRAST CLINICAL INFORMATION: Renal mass. COMPARISON: Chest x-ray most recent 07/27/2019. TECHNIQUE: Multidetector volumetric CT imaging of the chest was obtained after the administration of 50 mL of Omnipaque 350 intravenous contrast without immediate adverse reactions. Axial MIP volume rendering provided. Sagittal and coronal reformatted images were obtained. This CT examination was performed using dose optimization techniques as appropriate, variously including the following: *Automated exposure control *Adjustment of mA and/or kV according to patient size (this includes techniques or standardized protocols for targeted exams where dose is matched to indication/reason for exam; i.e. extremities or head) *Use of iterative reconstruction technique DLP: 398 mGy-cm FINDINGS: ACOUSTICAL TILE PATTERNMAKER: Unremarkable LUNGS: The lungs are clear with no evidence of inflammation or nodules. MEDIASTINUM: The mediastinum is normal. PLEURA: There is no pleural effusion. No pleural mass or thickening. AXILLA: No lymphadenopathy. UPPER ABDOMEN: Unremarkable OSSEOUS STRUCTURES: Unremarkable. CT/CT chest w IV con IMPRESSION: Unremarkable thoracic CT. No evidence of intrathoracic metastasis. Fleischner guidelines were followed.
[2023-12-01] MEDS: iohexoL 350 MG/ML 100 ML INFUS..BTL IV (11:31)
== END 2023-12-01 10:59 | disposition home or self-care (01) ==
LOC: HO.CT 10:58
PROVIDERS: Visit Provider Urology
DX: N28.89 Other specified disorders of kidney and ureter (principal)
CPT/HCPCS: 71260; Q9967

== ENCOUNTER 2024-02-09 06:36 | Outpatient (REF) | payer MEDICARE, OTHER, SELFPAY ==
[2024-02-09 08:00] LABS: Anion Gap 11 (12-20); Blood Urea Nitrogen 31 mg/dL (9-16); Calcium 9.1 mg/dL (8.4-10.2); Carbon Dioxide 24 mmol/L (22-29); Chloride 109 mmol/L (96-108); Estimated Glomerular Filt Rate 34; Glucose Random 123 mg/dL (60-115); Potassium 3.9 mmol/L (3.3-5.1); Sodium 140 mmol/L (135-145)
== END 2024-02-09 06:37 | disposition home or self-care (01) ==
LOC: HO.LAB 06:36
PROVIDERS: PCP Internal Medicine; Visit Provider Nurse Practitioner
DX: N28.89 Other specified disorders of kidney and ureter (principal)
CPT/HCPCS: 36415; 80048

== ENCOUNTER 2024-03-22 10:19 | Outpatient (AMB) | payer MEDICARE, OTHER, SELFPAY ==
--- NOTE | 2024-03-22 10:34 | MHC.OFFVIS ---
Intake Visit Reasons: CT Chest/PSA Follow up(Pt did not do MRI) Intake Note: Patient is present for CT Chest/PSA F/U Urology Medication:TERAZOSIN, FINASTERIDE Antibiotic Allergy:NONE Blood Thinner:NONE Gin Pole Operator Required: No Allergies No Known Allergies Allergy (Verified 03/22/24 10:35) HPI Comments Details: Minerva is a pleasant male. He is a patient of Dr. Lopez. He is seen for the following urologic conditions - lower urinary tract symptoms - right renal cancer Doing well with current prostate medications Continue with finasteride plus terazosin Three-month follow-up imaging for renal cancer Lower urinary tract symptoms Progressive Nocturia x2 with hesitation Had been on combination finasteride with tamsulosin Current medication finasteride plus terazosin PSA 11/22 1.0 Right renal cancer - total nephrectomy 12/22 Incidental diagnosis during evaluation for BPH Laparoscopic nephrectomy December [address] Vita Conroy MRI 05/23 - exophytic mass lesion protruding from posterior mid right renal cortex, measuring 4.8 cm in AP diameter, 4.5 cm in width, 6.2 cm in vertical height, showing multiple focal T1 hyperintense, T2 hyperintense hemorrhagic components, marked rim enhancement and additional enhancing nodular protrusion with obtuse margins up to 1.9 cm in thickness in addition to multiple enhancing internal septations Imaging - 12/22 CT chest negative PFSH Medical History Bleeding hemorrhoids Hyperlipidemia Seizure Surgical History H/O hemorrhoidectomy (~11/07/22) Hx of colonoscopy Family History Brother Cancer of unknown origin Social History Alcohol intake: never Patient Tobacco Use Status: Never used Tobacco Review of Systems Const Denies chills and Denies fever(s) Card Reports no additional complaints and Denies syncope Resp Denies cough GI Denies abdominal pain and Denies heartburn Reports as per HPI and Denies change in libido Neuro Denies syncope Psych Denies change in libido Endo Denies change in libido Physical Exam Const General: cooperative, healthy appearing, comfortable and no acute distress Orientation/consciousness: patient oriented x3 HEENT Face and sinus: Yes normal facial exam Mouth: moist mucous membranes Neck Neck: Yes normal visual inspection, Yes full ROM and Yes trachea midline Chest Chest palpation & inspection: normal inspection of the chest Resp Effort & Inspection: normal respiratory effort, able to speak in complete sentences and no respiratory distress GI Inspection: Yes normal to inspection Back/Spine/Pelvis Cervical Spine: normal cervical lordosis Thoracic/Lumbar Spine: thoracic and lumbar spine normal to inspection Skin General skin exam: no rashes or lesions noted Neuro General: patient oriented x3, gait normal, tone normal and moves all extremities Extrem General: Yes normal to inspection and Yes capillary refill normal Results AMB Urinalysis, Automated UA Leukoctes 0 Sarah/uL Last Edit by SHANTEL Gates on 03/22/24 11:03 UA Nitrite Negative Last Edit by SHANTEL Gates on 03/22/24 11:03 UA Urobilinogen 0.2 mg/dL Last Edit by SHANTEL Gates on 03/22/24 11:03 UA Protein 15 mg/dL Last Edit by Janeen Claros CCM on 03/22/24 11:03 UA pH 6.0 Last Edit by SHANTEL Gates on 03/22/24 11:03 UA Blood 0 Tirso/uL Last Edit by Janeen Claros CCM on 03/22/24 11:03 UA Specific Calhoun 1.015 Last Edit by SHANTEL Gates on 03/22/24 11:03 UA Ketone Negative Last Edit by SHANTEL Gates on 03/22/24 11:03 UA Bilirubin 0 mg/dL Last Edit by Janeen Claros CCM on 03/22/24 11:03 UA Glucose 0 mg/dL Last Edit by Janeen Claros CCM on 03/22/24 11:03 Results Reviewed Results Reviewed: Laboratory Last Values Urine pH (Auto) 6.0 03/22/24 11:03 Specific Calhoun (Auto) 1.015 03/22/24 11:03 Urine Protein (Auto) 15 mg/dL 03/22/24 11:03 Glucose (UA)(Auto) 0 mg/dL 03/22/24 11:03 Urine Ketones (Auto) Negative 03/22/24 11:03 Urine Blood (Auto) 0 Tirso/uL 03/22/24 11:03 Urine Nitrite (Auto) Negative 03/22/24 11:03 Urine Bilirubin (Auto) 0 mg/dL 03/22/24 11:03 Urine Urobilinogen (Auto) 0.2 mg/dL 03/22/24 11:03 Leukocyte Esterase (Auto) 0 Sarah/uL 03/22/24 11:03 Assessment & Plan Assessment & Plan (1) Renal cancer: Code(s): C64.9 - Malignant neoplasm of unspecified kidney, except renal pelvis Category: Medical (2) Lower urinary tract symptoms: Code(s): R39.9 - Unspecified symptoms and signs involving the genitourinary system Category: Medical (3) Urinary urgency: Code(s): R39.15 - Urgency of urination Category: Medical (4) Elevated PSA: Code(s): R97.20 - Elevated prostate specific antigen [PSA] Category: Medical Plan Three-month follow-up imaging Orders: Orders AMB Urinalysis Automated Today Z13.9 - Encounter for screening, unspecified Creatinine 3 Months C64.9 - Malignant neoplasm of unspecified kidney, except renal pelvis MR abdomen wo/w con 3 Months C64.9 - Malignant neoplasm of unspecified kidney, except renal pelvis Blood Urea Nitrogen 3 Months C64.9 - Malignant neoplasm of unspecified kidney, except renal pelvis Patient Instructions: Imaging studies, laboratory and physical exam results were discussed and reviewed in detail. No major barriers to patient understanding were identified. An opportunity to ask questions regarding the treatment plan was provided. All questions were answered. The patient expressed understanding and agreement with the above treatment plan. The patient is aware they should contact our office by phone for worsening of their current condition or the appearance of new urologic symptoms. Compliance is encouraged with any medications and followup testing that is ordered. It is a privilege to participate in the urologic care of your patient. If you have any questions or concerns regarding treatment for the above conditions, or other urologic issues, please do not hesitate to contact me. The office telephone contact is [phone]. This note is constructed using voice recognition software. While every effort has been made to ensure accuracy work force advisor errors may have been included. Yours sincerely, Dr Ramy Chu MD, [facility] - Urology Providers of Expert, Compassionate Care for the Genitourinary System Coding Level of Care Code Est Pt Level 3 (33150) Diagnoses Renal cancer C64.9 Lower urinary tract symptoms R39.9 Urinary urgency R39.15 Elevated PSA R97.20
== END 2024-03-22 11:15 | disposition home or self-care (01) ==
PROVIDERS: PCP Internal Medicine; Visit Provider Urology
DX: C64.9 Malignant neoplasm of unspecified kidney, except renal pelvis (principal); R39.9 Unspecified symptoms and signs involving the genitourinary system; R39.15 Urgency of urination; R97.20 Elevated prostate specific antigen [PSA]; Z13.9 Encounter for screening, unspecified
CPT/HCPCS: 99213

== ENCOUNTER → 2024-03-22 10:19 | Outpatient (BNVA) | payer MEDICARE, OTHER, SELFPAY | PROVIDERS: PCP Internal Medicine; Visit Provider Urology | DX: R35.1 Nocturia (principal); R39.11 Hesitancy of micturition; R39.15 Urgency of urination; R97.20 Elevated prostate specific antigen [PSA]; Z90.5 Acquired absence of kidney; Z85.528 Personal history of other malignant neoplasm of kidney | CPT/HCPCS: 81003; 99212 ==

== ENCOUNTER 2024-03-29 10:50 | Outpatient (REF) | payer MEDICARE, OTHER, SELFPAY ==
[2024-03-29] MEDS: gadobutroL 10 ML VIAL IVPUSH (11:43)
== END 2024-03-29 10:51 | disposition home or self-care (01) ==
LOC: HO.MRI 10:50
PROVIDERS: PCP Internal Medicine; Visit Provider Urology
DX: C64.9 Malignant neoplasm of unspecified kidney, except renal pelvis (principal)
CPT/HCPCS: 74183; A9585

== ENCOUNTER → 2024-06-12 13:28 | Outpatient (BNV) | payer MEDICARE, OTHER, SELFPAY | PROVIDERS: PCP Internal Medicine; Visit Provider Radiology Diagnostic Radiology | DX: N28.1 Cyst of kidney, acquired (principal) | CPT/HCPCS: 74183 ==

== ENCOUNTER 2024-06-12 13:29 | Outpatient (REF) | payer MEDICARE, OTHER, SELFPAY ==
--- NOTE | ~2024-06-12 | MR_ITS ---
EXAMINATION: MRI Abdomen without and with contrast HISTORY: C64.9 - Malignant neoplasm of unspecified kidney, except renal pelvis COMPARISON: Comparison is made with the prior examination dated 03/29/2024. TECHNIQUE: Axial in and out of phase T1-weighted gradient echo, axial diffusion weighted, and axial and coronal haste T2 with fat saturation images were obtained through the abdomen. Subsequently, fat suppressed axial and coronal T1-weighted images were obtained after the intravenous administration of 10 mL Gadavist. FINDINGS: There is slight loss of signal intensity within the liver on opposed phase imaging, consistent with steatosis. Again seen is a 10 mm cyst in the inferior right lobe (series 6, image 26). Smaller cysts are noted in the more superior aspect of the right lobe (series 6, image 19) and in the left lobe (series 6, image 22). There is no enhancing liver mass. There is no intra or extrahepatic biliary ductal dilatation. The hepatic and portal veins are patent. There is cholelithiasis. The spleen, pancreas, and adrenals are unremarkable. The patient is status post right nephrectomy. Again seen are left renal parapelvic cysts. There is no enhancing mass. No retroperitoneal lymphadenopathy or ascites is identified in the upper abdomen. MR/MR abdomen wo/w con IMPRESSION: 1. Status post right nephrectomy. 2. Mild hepatic steatosis. Hepatic cysts as described. 3. Right renal parapelvic cysts. Electronically signed by: Adryan Beltre MD 06/14/2024 09:25 AM [facility]
[2024-06-12] MEDS: gadobutroL 10 ML VIAL IVPUSH (14:15)
== END 2024-06-12 13:30 | disposition home or self-care (01) ==
LOC: HO.MRI 13:29
PROVIDERS: PCP Internal Medicine; Visit Provider Urology
DX: C64.9 Malignant neoplasm of unspecified kidney, except renal pelvis (principal)
CPT/HCPCS: 74183; A9585

== ENCOUNTER 2024-06-22 09:01 | Outpatient (AMB) | payer MEDICARE, OTHER, SELFPAY ==
--- OUTSIDE RECORDS SUMMARY | 2024-06-22 09:24 | XMS_ITS | Clinical Summary ---
Author Organization [facility] Address [address] [place] [address] Care Team Providers Care Systems Software Designer Name Role Phone Grant Lopez Primary Care Provider [phone] Allergies No known active allergies Medications carBAMazepine (TEGretol) 200 mg tablet 200 mg 3 times a day. Active finasteride (PROSCAR) 5 mg tablet Take 5 mg by mouth once a day. Active terazosin (HYTRIN) 5 mg capsule Take 5 mg by mouth nightly. Active phenytoin ER (DILANTIN) 100 mg capsule Take 200 mg by mouth 3 times a day. Active metFORMIN ER (GLUCOPHAGE XR) 500 mg tablet Take 500 mg by mouth daily with breakfast. 11/27/2023 Active acetaminophen (TYLENOL) 325 mg tablet Take 2 tablets (650 mg total) by mouth every 6 hours. 12/19/2023 Active docusate sodium (COLACE) 100 mg capsule Take 1 capsule (100 mg total) by mouth 2 times a day. 12/19/2023 Active gabapentin (NEURONTIN) 100 mg capsule Take 1 capsule (100 mg total) by mouth every 8 hours for 7 days. 21 capsule 12/19/2023 1:10 PM EDT 12/19/2023 Active polyethylene glycol 3350 (MIRALAX) 17 gram packet Take 1 packet (17 g total) by mouth once a day. Mix powder in 4 to 8 oz of water, juice, coffee, or tea prior to administrati on. 12/20/2023 Active senna (SENOKOT) 8.6 mg tablet Take 2 tablets (17.2 mg total) by mouth nightly. 12/19/2023 Active simethicone (MYLICON) 80 mg chewable tablet Chew and swallow 1 tablet (80 mg total) by mouth after meals and at bedtime. 12/19/2023 Active Active Problems Problem Noted Date Diagnosed Date Malignant neoplasm of right kidney 03/27/2024 Resolved Problems Problem Noted Date Diagnosed Date Resolved Date Renal mass 10/22/2023 03/27/2024 Encounters Date Type Department Care Team Description 03/30/2024 Patient Outreach [facility] Radiation Oncology [address] [place] [phone] Candace Johns RN 03/28/2024 2:30 PM EDT Office Visit [facility] [address] [place] [phone] Transportation Lead: Kimmy Cervantes MD Malignant neoplasm of right kidney (HCC) (Primary Dx) 03/28/2024 Telephone [facility] [address] [place] [phone] Transportation Lead: Kimmy Cervantes MD 03/28/2024 Patient Outreach [facility] Radiation Oncology [address] [place] [address] Candace Johns RN 03/27/2024 Telephone [facility] [address] [place] [phone] Transportation Lead: Kimmy Cervantes MD from Last 3 Months Family History Medical History Relation Name Comments Diabetes Father Diabetes Mother Relation Name Status Comments Father Alive Mother Alive Social History Tobacco Use Types Packs/Day Years Used Date Smoking Tobacco: Never Smokeless Tobacco: Never Tobacco Cessation:Counseling Given: Not Answered Alcohol Use Standard Drinks/Week Comments Not Currently 0 (1 standard drink = 0.6 oz pur e alcohol) Sex and Gender Information Value Date Recorded Sex Assigned at Male 10/06/2023 10:33 AM EDT Legal Sex Male 10:30 AM EDT Gender Identity Male 10/06/2023 10:33 AM EDT Sexual Orientation Straight 11/17/2023 6: 11 PM EDT Last Filed Vital Signs Vital Sign Reading Time Taken Comments Blood Pressure 114/72 03/28/2024 2:50 PM EDT Pulse 87 03/28/2024 2:50 PM EDT Temperature 36.5 ??C (97.7 ??F) 01/12/2024 1 2:47 PM EDT Respiratory Rate 20 01/12/2024 12:4 7 PM EDT Oxygen Saturation 96% 01/12/2024 12: 47 PM EDT Inhaled Oxygen Concentration - - Weight 105.1 kg (231 lb 12. 8 oz) 01/12/2024 12:47 PM EDT Height 171.3 cm (5' 7.44 ) 01/12/2024 1 2:47 PM EDT Measured today-TA Body Mass Index 35.83 01/12/2024 12:47 PM EDT Plan of Treatment Health Maintenance Due Date Last Done Comments Cologuard 1960 Colon Cancer Screening 1960 Colonoscopy 1960 FOBT / Fit Test 1960 HIV Screening 1960 Sigmoidoscopy 1960 Pneumococcal Vaccine: Pediat evi (0-5 Years) and At-Risk Patients (6-64 Years) (1 of 2 - PCV) 1966 Zoster Vaccines (1 of 2) 08/06/1979 DTaP,Tdap,and Td Vaccines (1 - Tdap) 1982 COVID-19 Vaccine (2 - Jansse n risk series) 10/05/2020 09/07/2020 Influenza Vaccine (#1) 2024 Alcohol/Substance Use Screening 06/01/2024 Depression Screening and Follow-Up 06/01/2024 Social Drivers of Health Lory ual Screening 06/01/2024 RSV Vaccine (60+ years old a nd patients) (1 - 1-dose 75+ series) 08/06/2035 Hepatitis C Screening Completed 12/17/2023 Hepatitis B Vaccines Aged Out No long er eligible based on patient's age to complete this topic Procedures * Due to [place] state law, this organization might not be sharing negative HIV tests. Procedure Name Priority Date/Time Associated Diagnosis Comments HEPATITIS C ANTIBODY W/REFLEX TO HCV RNA, QUANTITATIVE PCR Timed 12/17/2023 3:33 PM EDT from Last 3 Months or Most Recently Relevant to Health Maintenance Results * Due to [place] state law, this organization might not be sharing negative HIV tests. * Hepatitis C Antibody w/Reflex to HCV RNA, Quantitative PCR (12/17/2023 3:33 PM EDT) Hepatitis C Antibody NON-REACT KARLA NON-REACT KARLA 12/18/2023 4:31 AM EDT [employer] Comment: HCV antibody was non-reactive. There is no laboratory evidence of HCV infection. In most cases, no further action is required. However, if recent HCV exposure is suspected, a test for HCV RNA (test code 04208) is suggested. For additional information please refer to http://education.Dream [employer]/faq/QBA74b5 (This link is being provided for informational/ educational purposes only.) Blood Structure of peripheral vein / Unknown Venipuncture / Unknown 12/17/2023 3:33 PM EDT 12/17/2023 3:37 PM EDT Narrative KESHA PAREDES - 12/18/2023 4:31 AM EDT [facility] Received Date:[id number] Phoebe Lopez NP LAB BLOOD ORDERABLES Shakira l Result KESHA PAREDES [address], [place] [address], [place] [phone] [facility] [address], [place] [address], [place] [phone] from Last 3 Months or Most Recently Relevant to Health Maintenance Insurance MEDICARE [facility] Advance Directives Documents on File Type Date Recorded Patient Outreach Librarian Expl [facility] Health Care Proxy 12/07/2023 8:14 AM * Presumed Full Code (Latest Code Status on File) Date Activated Date Inactivated Comments 12/16/2023 3:52 PM 12/19/2023 4:10 PM Care Teams Systems Software Designer Relationship Specialty Start Date End Date Grant Lopez [address] [place] [address] [place] [address] PCP - General Internal Medicine 10/06/23
--- OUTSIDE RECORDS SUMMARY | 2024-06-22 09:24 | XMS_ITS | Referral Summary ---
Author Organization [facility] Address [address] [place] [address] Care Team Providers Care Consumer Electronics Merchandiser Name Role Phone Grant Lopez Primary Care Provider Encounters Date Type Department Care Team Description 03/30/2024 Patient Outreach [facility] Radiation Oncology [address] [place] [address] Candace Johns RN 03/28/2024 Telephone [facility] [address] [place] [address] Desizing Machine Operator Head End: Kimmy Cervantes MD 03/28/2024 Patient Outreach [facility] Radiation Oncology [address] [place] [address] Candace Johns RN 03/28/2024 2:30 PM EDT Office Visit [facility] [address] [place] [phone] Desizing Machine Operator Head End: Kimmy Cervantes MD Malignant neoplasm of right kidney (HCC) (Primary Dx) 03/27/2024 Telephone [facility] [address] [place] [address] Desizing Machine Operator Head End: Kimmy Cervantes MD from Last 3 Months Allergies No known active allergies Medications carBAMazepine [...] Date Resolved Date Renal mass 10/22/2023 03/27/2024 Social History Tobacco Use Types Packs/Day Years [...] 01/12/2024 12:47 PM EDT Plan of Treatment Not on file Procedures * Due to [place] [employer] law, this organization might not be sharing negative HIV tests. Procedure Name Priority Date/Time Associated Diagnosis Comments HEPATITIS C ANTIBODY W/REFLEX TO HCV RNA, QUANTITATIVE PCR Timed 12/17/2023 3:33 PM EDT from Last 3 Months or Most Recently Relevant to Health Maintenance Results * Due to [place] [employer] law, this organization might not be sharing negative HIV tests. * Hepatitis C Antibody w/Reflex to HCV RNA, Quantitative PCR (12/17/2023 3:33 PM EDT) Hepatitis C Antibody NON-REACT KARLA NON-REACT KARLA 12/18/2023 4:31 AM EDT [employer] [facility] Comment: HCV antibody was non-reactive. There is no laboratory evidence of HCV infection. In most cases, no further action is required. However, if recent HCV exposure is suspected, a test for HCV RNA (test code 46260) is suggested. For additional information please refer to http://education.[employer]/faq/OJZ17a7 (This link is being provided for informational/ educational purposes only.) Blood Structure of peripheral vein / Unknown Venipuncture / Unknown 12/17/2023 3:33 PM EDT 12/17/2023 3:37 PM EDT Narrative KESHA FENNIMORE - 12/18/2023 4:31 AM EDT [facility] Received Date:[id number] Phoebe Lopez CLIENT SERVICES COORDINATOR LAB BLOOD ORDERABLES Shakira l Result [facility] [address] [facility] 3rd Floor, [place] [address], [place] [phone] [facility] [address], [place] [address], [place] [phone] from Last 3 Months or Most Recently Relevant to Health Maintenance Insurance MEDICARE [facility] Advance Directives Documents on File Type Date Recorded Patient Frame Table Operator Helper Expl anation Health Care Proxy 12/07/2023 8:14 AM * Presumed Full Code (Latest Code Status on File) Date Activated Date Inactivated Comments 12/16/2023 3:52 PM 12/19/2023 4:10 PM Care Teams Consumer Electronics Merchandiser Relationship Specialty Start Date End Date Grant Lopez [address] [place] [address] dr Viry [place], [place] [address] PCP - General Internal Medicine 10/06/23
--- OUTSIDE RECORDS SUMMARY | 2024-06-22 09:24 | XMS_ITS | Encounter Summary ---
Author Organization [facility], Address [address] [place] [address] Phone Care Team Providers Care Robotic Machine Operator Name Role Phone Beatrice Ho Primary Care Provider [phone] Encounter Details Date Type Department Care Team (Late st Contact Info) Description 04/06/2024 Documentation Only [facility] [address] [place] [address] [place] [address] [place] [address] [phone] Social History Tobacco Use Types Packs/Day Years Used Date Smoking Tobacco: Never Assessed Sex and Gender Information Value Date Recorded Sex Assigned at Not on file Legal Sex Male 12:25 PM EST Gender Identity Not on file Sexual Orientation Not on file documented as of this encounter Plan of Treatment Upcoming Encounters Date Type Department Care Team (Late st Contact Info) Description 04/07/2025 10:30 AM EST Office [facility] Dr Mark MICHEL [address] [place] [phone] Frederick Corey MD [address] [place] [address] [place] [phone] documented as of this encounter Visit Diagnoses Not on filedocumented in this encounter Care Teams Robotic Machine Operator Relationship Specialty Start Date End Date Beatrice Ho [address] [place], [place] [phone] PCP - General 04/06/24 documented as of this encounter
--- OUTSIDE RECORDS SUMMARY | 2024-06-22 09:24 | XMS_ITS | Encounter Summary ---
Author Organization [facility] Address [address] [place] [address] Care Team Providers Care Metal Sander Name Role Phone Grant Lopez Primary Care Provider Encounter Details Date Type Department Care Team (Late st Contact Info) Description 10/22/2023 Orders Only [facility] Interventional Radiology [address] [place] [address] Ronny Meyer, [address] [place] [address] Social History Tobacco Use Types Packs/Day Years Used Date Smoking Tobacco: Never Assessed Sex and Gender Information Value Date Recorded Sex Assigned at Male 10/06/2023 10:33 AM EDT Legal Sex Male 10:30 AM EDT Gender Identity Male 10/06/2023 10:33 AM EDT Sexual Orientation Straight 11/17/2023 6: 11 PM EDT documented as of this encounter Plan of Treatment Not on file documented as of this encounter Visit Diagnoses Not on filedocumented in this encounter Care Teams Metal Sander Relationship Specialty Start Date End Date Grant Lopez [address] [place] [address] [place] [address] PCP - General Internal Medicine 10/06/23 documented as of this encounter
--- OUTSIDE RECORDS SUMMARY | 2024-06-22 09:24 | XMS_ITS | Patient Health Record ---
Author Organization [facility] Address [address] [place] [address] Care Team Providers Care Plant Tender Name Role Phone Grant Lopez MD Primary Care Provider Darren Heredia Jr Unavailable [phone] ALLERGIES Allergen (clinical drug ingredient) Drug/Non Drug Allergy documented on EMR Reaction Allergy Type Onset Date Status Pollen Pollen Unknown Allergy Active REASON FOR REFERRAL No Information MEDICATIONS Medication SIG (Take, Route, Frequency, Duration) Notes Start Date End Date Status Fluticasone Propionate 50 MCG/ACT Nasal for 90 Active Phenytoin Sodium Extended 100 MG Oral for 30 Active Pravastatin Sodium 20 MG Oral for 90 Active carBAMazepine 200 MG Oral for 30 Active MiraLax (colon prep) 17 GM/SCOOP mixed with Gatorade or Crystal Light Orally begin at 5:00 p.m. the day before the procedure for 1 day 11/06/2021 Active IMMUNIZATIONS Vaccine Route Administration Date Status Comme nts Influenza Unknown 11/06/2021 Refused SOCIAL HISTORY Tobacco Use: Social History Observation Description Date Details (start date - stop date) Never Smoker NA - NA Sex Assigned At : Social History Observation Description Sex Assigned At Unknown Tobacco Use/Smoking Question Answer Notes Patient is a nonsmoker Alcohol Screen Question Answer Notes Did you have a drink containing alcohol in the p ast year? No Points 0 Interpretation Negative PROBLEMS Problem Type ICD Code Onset Dates Problem Status W/U Status Risk SNOMED Code Notes Problem Colon cancer screening (Z12.11) Active confirmed [id number] PLAN OF TREATMENT Future Test Test Name Order Date COLONOSCOPY 11/06/2021 Insurance Providers Payer Name Payer Address Payer Phone Subscriber Number Group Number Insured Name Patient Relationship to Insured Coverage Start Date Coverage End Date MEDICARE OF [place] [address] [place] [id number] [id number] EDDA LONDONO Self - patient is the insured MEDICAL (GENERAL) HISTORY Medical History History ICD Code Seizure disorder Allergic rhinitis Elevated cholesterol Surgical History Surgery Date(Month/Year)
--- OUTSIDE RECORDS SUMMARY | 2024-06-22 09:24 | XMS_ITS | Clinical Summary ---
Author Organization [facility], Address [address] [place] [address] Phone Care Team Providers Care Timber Trimmer Name Role Phone Beatrice Ho Primary Care Provider [phone] Allergies Active Allergy Reactions Criticality Noted Date Comments Pollen Extract 04/07/2024 Other Reaction(s): Unknown Medications pravastatin (PRAVACHOL) 20 MG tablet Take 20 mg by mouth 1 (one) time each day Active polyethylene glycol (MiraLax) 17 g packet Take 17 g by mouth 1 (one) time each day Active phenytoin (DILANTIN) 100 MG ER capsule Take 100 mg by mouth in the morning and 100 mg at noon and 100 mg in the evening. Active prochlorperazine (COMPAZINE) 10 MG tablet Take 10 mg by mouth every 6 (six) hours if needed for nausea or vomiting Active terazosin (HYTRIN) 5 MG capsule Take 5 mg by mouth every night Active simethicone (MYLICON) 80 MG chewable tablet Chew 80 mg every 6 (six) hours if needed for flatulence Active Sennosides (Senna) 8.6 MG capsule Take by mouth Active docusate sodium (COLACE) 100 MG capsule Take 100 mg by mouth in the morning and 100 mg in the evening. Active carBAMazepine (CARBATROL) 200 MG 12 hr capsule Take 200 mg by mouth in the morning and 200 mg in the evening. Do not crush or chew.. Active acetaminophen (TYLENOL) 325 MG suppository Insert 325 mg into the rectum every 4 (four) hours if needed for mild pain Active finasteride (PROSCAR) 5 MG tablet Take 5 mg by mouth 1 (one) time each day Do not crush, chew, or split. Active metFORMIN (FORTAMET) 500 MG 24 hr tablet Take 500 mg by mouth 1 (one) time each day with dinner Do not crush, chew, or split. Active gabapentin (NEURONTIN) 100 MG capsule Take 100 mg by mouth in the morning and 100 mg in the evening and 100 mg before bedtime. 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> 04/08/2024 Renal cell carcinoma 02/24/2024 Encounters Date Type Department Care Team Description 04/08/2024 2:30 PM EST Office Visit [facility] Jose MICHEL [address] [place] [phone] Frederick Corey MD Stage 3b chronic kidney disease (HCC) (Primary Dx); History of radical nephrectomy; Renal disorder due to type 2 diabetes mellitus <Other diabetic kidney complication> (HCC) 04/06/2024 Telephone [facility] [address] [place] [phone] Fanny Gill MA 04/06/2024 Documentation Only [facility] [address] [place] [phone] Fanny Gill MA from Last 3 Months Social History Tobacco Use Types Packs/Day Years Used Date Smoking Tobacco: Never Assessed Sex and Gender Information Value Date Recorded Sex Assigned at Not on file Legal Sex Male 12:25 PM EST Gender Identity Not on file Sexual Orientation Not on file Plan of Treatment Upcoming Encounters Date Type Department Care Team (Late st Contact Info) Description 04/07/2025 10:30 AM EST Office Visit [facility] JAN [address] [place] [phone] Frederick Corey MD [address] [place] [address] [place] [phone] Health Maintenance Due Date Last Done Comments Pneumococcal Vaccine: Pediat rics (0 to 5 Years) and At-Risk Patients (6 to 64 Years) (1 of 2 - PCV) 1966 Colorectal Cancer Screening: Annual FOBT 2009 Colorectal Cancer Screening: Colonoscopy 2009 Colorectal Cancer Screening: Sigmoidoscopy 2009 Influenza Vaccine (#1) 2024 Diabetes: Hemoglobin A1C 04/08/2024 Diabetes: Ophthalmology Exam 04/08/2024 Diabetes: Pedal Pulse Checked 04/08/2024 Diabetes: Sensory Foot Exam 04/08/2024 Diabetes: Visual Foot Exam 04/08/2024 Hepatitis B Vaccine Aged Out No longe r eligible based on patient's age to complete this topic Insurance MEDICARE [facility] Care Teams Timber Trimmer Relationship Specialty Start Date End Date Beatrice Ho [address] [place] [phone] PCP - General 04/06/24
--- OUTSIDE RECORDS SUMMARY | 2024-06-22 09:24 | XMS_ITS ---
Author Organization [facility] Address [address] [place] [address] Care Team Providers Care Third Grade Teacher Name Role Phone Grant Lopez Primary Care Provider [phone] Active Problems Problem Noted Date Diagnosed Date Malignant neoplasm of right kidney 03/27/2024 Current Oncology Plans No current plan information found. Past Plans No past plan information found. Radiation Treatments * No radiation treatments are documented for this patient in [facility]. Treatments may have been administered in another system. Lifetime Dose Tracking * Chemical Lifetime Dose Automatic Entry Manual Entr y TotalDLP 2,122 mGy 2,122 mGy 0 mGy [id number] 27.6 mSv 27.6 mSv 0 mSv CTDIvol Max 17.5 mGy 17.5 mGy 0 mGy CTDIvol Min 14.4 mGy 14.4 mGy 0 mGy Resolved Problems Problem Noted Date Diagnosed Date Resolved Date Renal mass 10/22/2023 03/27/2024
--- NOTE | 2024-06-22 09:40 | A.OFFVIS_ITS ---
Intake Visit Reasons: 3M MRI/PVR(set) Intake Note: Patient is present for 3M MRI/PVR Urology Medication:TERAZOSIN,FINASTERIDE Antibiotic Allergy:NONE Blood Thinner:NONE Todays PVR:0ML'S Designer And Patternmaker Required: No Allergies No Known Allergies Allergy (Verified 06/22/24 09:41) HPI Comments Details: Minerva is a pleasant male. He is a patient of Dr. Lopez. He is seen for the following urologic conditions - lower urinary tract symptoms - right renal cancer Three-month follow-up imaging MRI six-month post nephrectomy looks good, creatinine 2.0 Continue six-month imaging out to 5 years Lower urinary tract symptoms Progressive Nocturia x2 with hesitation Had been on combination finasteride with tamsulosin Current medication finasteride plus terazosin PSA 11/22 1.0 Right renal cancer - total nephrectomy 12/22 Stage III renal cancer Treated with adjuvant pembrolizumab In surveillance Incidental diagnosis during evaluation for BPH Laparoscopic nephrectomy 12/22 Dr. Vita Conroy MRI 05/23 - exophytic mass lesion protruding from posterior mid right renal cortex, measuring 4.8 cm in AP diameter, 4.5 cm in width, 6.2 cm in vertical height, showing multiple focal T1 hyperintense, T2 hyperintense hemorrhagic components, marked rim enhancement and additional enhancing nodular protrusion with obtuse margins up to 1.9 cm in thickness in addition to multiple enhancing internal septations Imaging - 12/22 CT chest negative PFSH Medical History Bleeding hemorrhoids Hyperlipidemia Seizure Surgical History H/O hemorrhoidectomy (~11/07/22) Hx of colonoscopy Family History Brother Cancer of unknown origin Social History Alcohol intake: never Patient Tobacco Use Status: Never used Tobacco Review of Systems Const Denies chills and Denies fever(s) Card Reports no additional complaints and Denies syncope Resp Denies cough GI Denies abdominal pain and Denies heartburn Reports as per HPI and Denies change in libido Neuro Denies syncope Psych Denies change in libido Endo Denies change in libido Physical Exam Const General: cooperative, healthy appearing, comfortable and no acute distress Orientation/consciousness: patient oriented x3 HEENT Face and sinus: Yes normal facial exam Mouth: moist mucous membranes Neck Neck: Yes normal visual inspection, Yes full ROM and Yes trachea midline Chest Chest palpation & inspection: normal inspection of the chest Resp Effort & Inspection: normal respiratory effort, able to speak in complete sentences and no respiratory distress GI Inspection: Yes normal to inspection Back/Spine/Pelvis Cervical Spine: normal cervical lordosis Thoracic/Lumbar Spine: thoracic and lumbar spine normal to inspection Skin General skin exam: no rashes or lesions noted Neuro General: patient oriented x3, gait normal, tone normal and moves all extremities Extrem General: Yes normal to inspection and Yes capillary refill normal Office Procedures Post Void Residual Post Residual Void Post Void Residual (PVR): 0 42658-Dvif Void Residual by ultrasound Results AMB Urinalysis, Automated UA Leukoctes 0 Sarah/uL Last Edit by SHANTEL Gates on 06/22/24 10:08 UA Nitrite Negative Last Edit by SHANTEL Gates on 06/22/24 10:08 UA Urobilinogen 0.2 mg/dL Last Edit by SHANTEL Gates on 06/22/24 10:0 8 UA Protein 15 mg/dL Last Edit by SHANTEL Gates on 06/22/24 10:08 UA pH 5.5 Last Edit by Janeen Claros CCM on 06/22/24 10:08 UA Blood 0 Tirso/uL Last Edit by SHANTEL Gates on 06/22/24 10:08 UA Specific [place] 1.020 Last Edit by SHANTEL Gates on 06/22/24 10: 08 UA Ketone Negative Last Edit by SHANTEL Gates on 06/22/24 10:08 UA Bilirubin 0 mg/dL Last Edit by SHANTEL Gates on 06/22/24 10:08 UA Glucose 0 mg/dL Last Edit by Janeen Claros CCM on 06/22/24 10:08 Results Reviewed Results Reviewed: Laboratory Last Values Urine pH (Auto) 5.5 06/22/24 10:08 Specific [place] (Auto) 1.020 06/22/24 10:08 Urine Protein (Auto) 15 mg/dL 06/22/24 10:08 Glucose (UA)(Auto) 0 mg/dL 06/22/24 10:08 Urine Ketones (Auto) Negative 06/22/24 10:08 Urine Blood (Auto) 0 Tirso/uL 06/22/24 10:08 Urine Nitrite (Auto) Negative 06/22/24 10:08 Urine Bilirubin (Auto) 0 mg/dL 06/22/24 10:08 Urine Urobilinogen (Auto) 0.2 mg/dL 06/22/24 10:08 Leukocyte Esterase (Auto) 0 Sarah/uL 06/22/24 10:08 Assessment & Plan Assessment & Plan (1) Renal cancer: Comment: 12/22 radical nephrectomy stage III adjuvant pembrolizumab Code(s): C64.9 - Malignant neoplasm of unspecified kidney, except renal pelvis Category: Medical (2) Elevated PSA: Code(s): R97.20 - Elevated prostate specific antigen [PSA] Category: Medical (3) Nocturia: Code(s): R35.1 - Nocturia Category: Medical Plan Six-month follow-up imaging Orders: Orders AMB Urinalysis Automated Today Z13.9 - Encounter for screening, unspecified MR abdomen wo/w con 6 Months C64.9 - Malignant neoplasm of unspecified kidney, except renal pelvis CT chest w IV con 6 Months C64.9 - Malignant neoplasm of unspecified kidney, except renal pelvis Patient Instructions: Imaging studies, laboratory and physical exam results were discussed and reviewed in detail. No major barriers to patient understanding were identified. An opportunity to ask questions regarding the treatment plan was provided. All questions were answered. The patient expressed understanding and agreement with the above treatment plan. The patient is aware they should contact our office by phone for worsening of their current condition or the appearance of new urologic symptoms. Compliance is encouraged with any medications and followup testing that is ordered. It is a privilege to participate in the urologic care of your patient. If you have any questions or concerns regarding treatment for the above conditions, or other urologic issues, please do not hesitate to contact me. The office telephone contact is [phone]. This note is constructed using voice recognition software. While every effort has been made to ensure accuracy hide worker errors may have been included. Yours sincerely, Dr Ramy Chu MD, [facility] - Urology Providers of Expert, Compassionate Care for the Genitourinary System Coding Level of Care Code Est Pt Level 3 (57428) Diagnoses Renal cancer C64.9 Elevated PSA R97.20 Nocturia R35.1 CPT Codes Post Residual Void - PVR CPT Code: 22962-Fqmt Void Residual by ultrasound ([id number])
== END 2024-06-22 10:41 | disposition home or self-care (01) ==
PROVIDERS: PCP Internal Medicine; Visit Provider Urology
DX: C64.9 Malignant neoplasm of unspecified kidney, except renal pelvis (principal); R97.20 Elevated prostate specific antigen [PSA]; R35.1 Nocturia; Z13.9 Encounter for screening, unspecified
CPT/HCPCS: 99213

== ENCOUNTER → 2024-06-22 09:01 | Outpatient (BNVA) | payer MEDICARE, OTHER, SELFPAY | PROVIDERS: PCP Internal Medicine; Visit Provider Urology | DX: R35.1 Nocturia (principal); R97.20 Elevated prostate specific antigen [PSA]; C64.1 Malignant neoplasm of right kidney, except renal pelvis; Z90.5 Acquired absence of kidney | CPT/HCPCS: 51798; 81003; 99212 ==

== ENCOUNTER 2024-11-09 11:07 | Outpatient (AMB) | payer MEDICARE, OTHER, SELFPAY ==
--- NOTE | 2024-11-09 11:10 | MHC.PC.OV ---
Vital Signs 11/09/24 11:25 Height 5 ft 8 in Weight 111.13 kg BMI 37.2 BP 118/74 Respiration 16 Pulse 92 Pulse Source Pulse Oximeter Temp 97.4 F Temp Source Temporal Artery Scan Pulse Oximetry (%) 97 Oxygen Delivery Method Room Air Intake Visit Reasons: Routine Chrome Tanning Drum Operator Required: No Accompanied by: Self / Same As Patient Allergies No Known Allergies Allergy (Verified 11/09/24 11:21) Tobacco use date assessed: 11/09/24 Fall risk assessment: No Falls in past year Last assessed Fall Risk: 11/09/24 Dental Screening Dental Screen Date: 11/09/24 Did you have a dental visit in the last 12 months?: Yes Did you have a dental problem in the last 6 months where you did not have access to dental care?: No HPI HPI Comments History of Present Illness Details 64-year-old male with history of type 2 diabetes, BPH, seizure disorder, renal cell carcinoma of the right kidney, hyperlipidemia presents to the office today for management of chronic conditions and to establish care. Type 2 dowyeudk-gmq-wlpnmsi-dependent. Last hemoglobin A1c was 1 year ago and was controlled at 6.6%. On metformin 500 mg ER daily. Eye exam is up-to-date Hyperlipidemia-due for lipid panel. Compliant with pravastatin 20 mg daily Renal carcinoma of the right kidney-following with [facility]. S/p right-sided nephrectomy in 2023. On pembrolizumab 200 mg every 3 weeks, plan for 1 year initiated 03/09/2024 BPH-following with Urology. Symptoms Well controlled with finasteride and terazosin unspecified seizure disorder-last seizure disorder was many years ago. Controlled with carbamazepine. No longer following with Neurology Concerns: Reports swelling and pain around the nail bed of the right middle finger. Reports he has been picking at a piece of skin around the area. Ongoing for about 5 days. No purulent drainage. Health maintenance: Last colonoscopy 11/2021-following with Dr. Elam, 5 year follow-up advised. Pathology showing fragments of tubular adenoma negative for high-grade dysplasia or carcinoma ROS: General: No fevers, malaise, unintentional weight loss HEENT: No blurred vision, diplopia Cardiovascular: No chest pain, palpitations, or leg edema Respiratory: No shortness of breath, wheezing, cough Neuro: No headaches, weakness, paresthesias Skin: No rashes. see hpi EXAM: Constitutional - Awake and Alert, No apparent distress Eyes - PERRL Cardiovascular - S1S2, RRR, No edema Respiratory - Normal lung expansion, Normal respiratory effort, No respiratory distress, CTA bilaterally Extremities - no calf tenderness bilaterally, no swelling Skin - Warm/Dry. Mild swelling and faint erythema around the nail bed of the R third finger with some fluctuance adjacent to the nail but no purulent drainage expressed Neurological - Alert & oriented x3 Psychological - Appropriate [facility] Medical History (Updated 11/09/24 @ 12:18 by ROBINSON Billings) Chronic kidney disease, stage III (moderate) Enlarged prostate Renal cancer Diabetes Bleeding hemorrhoids Hyperlipidemia Seizure Surgical History (Updated 11/09/24 @ 12:18 by ROBINSON Billings) History of right radical nephrectomy H/O hemorrhoidectomy (~11/07/22) Hx of colonoscopy (~12/06/21) Family History Brother Cancer of unknown origin Social History Housing: House Alcohol intake: never Patient Tobacco Use Status: Never used Tobacco e-Cigarette/Vaping Use: Never Used service: No Current occupational status: retired Cognitive needs: No Hearing needs: No Vision needs: No Questionnaire PHQ-9 Over the last 2 weeks, how often have you been bothered by any of the following problems? 1. Little interest or pleasure in doing things: not at all 2. Feeling down, depressed, or hopeless: not at all 3. Trouble falling or staying asleep, or sleeping too much: more than half the days 4. Feeling tired or having little energy: not at all 5. Poor appetite or overeating: not at all 6. Feeling bad about yourself - or that you are a failure or have let yourself or your family down: not at all 7. Trouble concentrating on things, such as reading the newspaper or watching television: several days 8. Moving or speaking so slowly that other people could have noticed. Or the opposite - being so fidgety or restless that you have been moving around a lot more than usual: not at all 9. Thoughts that you would be better off or of hurting yourself in some way: not at all Total score: 3 Source: Developed by Drs. Adryan Linares, Macie Brown, Ash Mccabe and colleagues, with an educational alissa from [employer]. Thrive Questionnaire Date Thrive assessed: 11/09/24 I am a: Patient What is your living situation today?: I have a steady place to live Within the past 12 months, did the food you bought not last and you didn't have the money to get more?: Never true Within the past 12 months, did you worry whether your food would run out before you got money to buy more?: Never true Do you have trouble paying for medicines?: No Do you have trouble getting transportation to medical appointments?: No Do you have trouble paying your heating and electricity bill?: No Do you have trouble taking care of your child, family member or friend?: No Do you have trouble with day-to-day activities such as bathing, preparing meals, shopping, managing finances, etc.?: No Are you currently unemployed and looking for a job?: No Are you interested in more education?: No THRIVE Score: 0 AUDIT C Alcohol Use Questionnaire (AUDIT-C) 1. How often do you have a drink containing alcohol?: Never 3. How often do you have six or more drinks on one occasion?: Never Total Score: 0 MINH-7 AMB Questionnaire MINH-7 Date MINH - 7 assessed: 11/09/24 Feeling nervous, anxious, or on edge: 0 = Not at all Not being able to stop or control worryin = Not at all Worrying too much about different things: 0 = Not at all Trouble relaxin = More than half the days Being so restless that it is hard to sit still: 0 = Not at all Becoming easily annoyed or irritable: 0 = Not at all Feeling afraid as if something awful might happen: 0 = Not at all Total MINH-7 score (0-4 normal; 5-9 mild; 10-14 moderate; 15-21 severe): 2 Source: Developed by Drs. Adryan Linares, Ash Hamlin and colleagues, with an educational alissa from [employer]. Physical exam (Primary Care) Vital Signs: Last Vital Signs Temp 97.4 F 11/09/24 11:25 Pulse 92 11/09/24 11:25 Resp 16 11/09/24 11:25 BP 118/74 11/09/24 11:25 Pulse Ox 97 11/09/24 11:25 Oxygen Delivery Method Room Air 11/09/24 11:25 BMI result Body Mass Index 37.2 Tobacco/Smoking Status: Tobacco use Status Tobacco use date assessed 11/09/24 11/09/24 11:12 Patient Tobacco Use Status Never used Tobacco 11/09/24 11:12 e-Cigarette/Vaping Use Never Used 11/09/24 11:12 PHQ-9: PHQ-9 Score PHQ-9: Total score 3 11/09/24 11:29 Thrive Assessment: Date of Thrive Assessment Date Thrive assessed 11/09/24 11/09/24 11:12 Coding Level of Care Code New Pt Level 4 (89663) Complex EM visit Add On G2211 Diagnoses Seizure R56.9 Hyperlipidemia E78.5 Renal cancer C64.9 Diabetes E11.9 Paronychia of finger L03.019 Chronic kidney disease, stage III (moderate) N18.30 Assessment & Plan Assessment & Plan (1) Seizure: Code(s): R56.9 - Unspecified convulsions Category: Medical Plan: Controlled. Continue Tegretol (2) Hyperlipidemia: Code(s): E78.5 - Hyperlipidemia, unspecified Category: Medical Plan: Lipid panel ordered. Continue pravastatin 20 mg daily, dose to be adjusted as appropriate pending results of study. Diet low in saturated fat and highly processed foods recommended. Weight loss efforts also recommended (3) Renal cancer: Comment: 12/22 radical nephrectomy stage III adjuvant pembrolizumab Code(s): C64.9 - Malignant neoplasm of unspecified kidney, except renal pelvis Category: Medical Plan: Notes from [facility] Oncology reviewed. S/p right-sided nephrectomy. Continue with pembrolizumab to complete 1 year as advised by Oncology. Labs reviewed from [facility] showing stable renal function consistent with CKD stage 3. (4) Diabetes: Code(s): E11.9 - Type 2 diabetes mellitus without complications Category: Medical Plan: Hemoglobin A1c ordered. Continue metformin 500 mg ER. Diabetic diet. Continue annual eye exams and foot exams (5) Paronychia of finger: Code(s): L03.019 - Cellulitis of unspecified finger Category: Medical Plan: Cefuroxime 500 mg twice daily prescribed x7 days. Recommend warm soaks and avoidance of picking at nailbed (6) Chronic kidney disease, stage III (moderate): Code(s): N18.30 - Chronic kidney disease, stage 3 unspecified Category: Medical Plan: Stable Plan Follow-up in the office 6 months with labs completed prior to visit. Should diabetes be uncontrolled, will have patient follow-up sooner Orders: Orders Lipid Panel Today C64.9 - Malignant neoplasm of unspecified kidney, except renal pelvis, E11.9 - Type 2 diabetes mellitus without complications, E78.5 - Hyperlipidemia, unspecified, R56.9 - Unspecified convulsions Hemoglobin A1c Today C64.9 - Malignant neoplasm of unspecified kidney, except renal pelvis, E11.9 - Type 2 diabetes mellitus without complications, E78.5 - Hyperlipidemia, unspecified, R56.9 - Unspecified convulsions Medications: New cefuroxime axetil 500 mg PO BID 14 tabs 0RF
[2024-11-09 11:25] VITALS: BP 118/74; PULSE 92; RESP 16; TEMP 36.3; O2SAT 97; BMI 37.2
--- OUTSIDE RECORDS SUMMARY | 2024-11-09 12:45 | XMS_ITS | Clinical Summary ---
Author Organization [facility], Address [address] [place] [address] Phone Care Team Providers Care Business Proposal Rep Name Role Phone Beatrice Ho Primary Care Provider [phone] Allergies Active Allergy Reactions Criticality Noted Date [...] kidney complication> 04/08/2024 Renal cell carcinoma 02/24/2024 Social History Tobacco Use Types Packs/Day Years [...] Visit [facility], - Brianna Jimenez [address] [phone] Frederick Corey MD [address] [place] [address] Health Maintenance Due Date Last Done Comments Pneumococcal Vaccine: 50+ Ye ars (1 of 2 - PCV) 08/06/1979 Colorectal Cancer Screening: Annual FOBT 2009 Colorectal Cancer Screening: Colonoscopy 2009 Colorectal Cancer Screening: Sigmoidoscopy 2009 Diabetes: Hemoglobin A1C 04/08/2024 Diabetes: Ophthalmology Exam 04/08/2024 Diabetes: Pedal Pulse Checked 04/08/2024 Diabetes: Sensory Foot Exam 04/08/2024 Diabetes: Visual Foot Exam 04/08/2024 Influenza Vaccine (Season Ended) 2025 Hepatitis B Vaccine Aged Out No longe r eligible based on patient's age to complete this topic Insurance Medicare [facility] Care Teams Business Proposal Rep Relationship Specialty Start Date End Date Beatrice Ho [address] [place] [id number] PCP - General 04/06/24
== END 2024-11-09 12:08 | disposition home or self-care (01) ==
LOC: HO.HMCHD 11:08
PROVIDERS: PCP Internal Medicine; Visit Provider Internal Medicine
DX: R56.9 Unspecified convulsions (principal); E78.5 Hyperlipidemia, unspecified; C64.9 Malignant neoplasm of unspecified kidney, except renal pelvis; E11.9 Type 2 diabetes mellitus without complications; L03.019 Cellulitis of unspecified finger; N18.30 Chronic kidney disease, stage 3 unspecified

== ENCOUNTER → 2024-11-09 11:07 | Outpatient (BNVA) | payer MEDICARE, OTHER, SELFPAY | PROVIDERS: PCP Internal Medicine; Visit Provider Internal Medicine | DX: R56.9 Unspecified convulsions (principal); E78.5 Hyperlipidemia, unspecified; C64.9 Malignant neoplasm of unspecified kidney, except renal pelvis; E11.9 Type 2 diabetes mellitus without complications; L03.019 Cellulitis of unspecified finger; N18.30 Chronic kidney disease, stage 3 unspecified | CPT/HCPCS: 99202 ==

== ENCOUNTER 2024-11-15 07:17 | Outpatient (REF) | payer MEDICARE, OTHER, SELFPAY ==
[2024-11-15 08:08] LABS: Hematocrit 37.8 % (42.0-52.0); Hemoglobin 11.8 g/dl (14.0-18.0); Mean Corpuscular HGB Conc 31.2 g/dl (31.0-36.0); Mean Corpuscular Hemoglobin 26.2 pg (27.0-33.0); Mean Platelet Volume 9.7 fL (9.4-12.4); Platelet Count 234 X10*3/uL (160-400); Red Cell Distribution Width 13.5 % (11.0-16.0); White Blood Count 4.9 X10*3/uL (4.8-10.8)
[2024-11-15 08:14] LABS: Estimated Average Glucose 137 mg/dL; Hemoglobin A1c % 6.4 % (<6.0); Total Hemoglobin (HGBA1C) 3163.8866 umol/L
[2024-11-15 08:43] LABS: Anion Gap 11 (12-20); Blood Urea Nitrogen 26 mg/dL (9-16); Calcium 8.8 mg/dL (8.4-10.2); Carbon Dioxide 24 mmol/L (22-29); Chloride 112 mmol/L (96-108); Cholesterol 219 mg/dL (<200); Estimated Glomerular Filt Rate 35; Glucose Random 127 mg/dL (60-115); HDL Cholesterol 38 mg/dL (>40); LDL Cholesterol Calculated 145 mg/dL (<100); Potassium 4.3 mmol/L (3.3-5.1); Sodium 143 mmol/L (135-145); Triglycerides 184 mg/dL (<150)
== END 2024-11-15 07:18 | disposition home or self-care (01) ==
LOC: HO.LAB 07:17
PROVIDERS: Urology; PCP Physician Assistant; Visit Provider Physician Assistant
DX: N20.0 Calculus of kidney (principal); C64.9 Malignant neoplasm of unspecified kidney, except renal pelvis; E29.1 Testicular hypofunction; E11.9 Type 2 diabetes mellitus without complications; R56.9 Unspecified convulsions
CPT/HCPCS: 36415; 80048; 80061; 83036; 85027

== ENCOUNTER 2024-11-30 07:36 | Outpatient (REF) | payer MEDICARE, OTHER, SELFPAY ==
--- NOTE | ~2024-11-30 | CT_ITS ---
EXAMINATION: CT CHEST WITHOUT CONTRAST CLINICAL INFORMATION: Renal mass. COMPARISON: December 01, 2023. TECHNIQUE: Multidetector volumetric CT imaging of the chest was done. Axial MIP volume rendering provided. Sagittal and coronal reformatted images were obtained. This CT examination was performed using dose optimization techniques as appropriate, variously including the following: *Automated exposure control *Adjustment of mA and/or kV according to patient size (this includes techniques or standardized protocols for targeted exams where dose is matched to indication/reason for exam; i.e. extremities or head) *Use of iterative reconstruction technique DLP: 236 mGy centimeter. FINDINGS: CAN CAPPER: Large body habitus. Both upper extremities at the size of the head. LUNGS: 7.6 mm noncalcified pulmonary nodule, lingula. Atelectasis, lung bases and right middle lung lobe. No bronchiectasis. No honeycombing. MEDIASTINUM: No lymphadenopathy. No pericardial effusion. Heart is not enlarged. No aneurysm, thoracic aorta. CORONARY ARTERY CALCIFICATION: None visualized on this study. PLEURA: No pleural effusion. No pneumothorax. No calcified pleural plaques. AXILLA: No lymphadenopathy. UPPER ABDOMEN: Small hiatal hernia. Contracted gallbladder with the likely cholelithiasis. . OSSEOUS STRUCTURES: Multilevel spondylosis with syndesmophyte formation and decreased intervertebral disc height at multiple levels CT/CT chest wo IV con IMPRESSION: 7.6 mm noncalcified pulmonary nodule, lingula. New since prior examination. Concerning for malignancy. Cholelithiasis. Fleischner guidelines were followed. Electronically signed by: Weston Montana MD 11/30/2024 01:19 PM EDT
--- OUTSIDE RECORDS SUMMARY | 2024-11-30 07:38 | XMS_ITS | Clinical Summary ---
Author Organization [facility] Address [address] [place] [address] Care Team Providers Care Electronic Prepress System Operator Name Role Phone Grant Lopez Primary Care Provider [phone] Allergies No known active allergies Medications carBAMazepine [...] Date Resolved Date Renal mass 10/22/2023 03/27/2024 Family History Medical History Relation Name Comments [...] 87 03/28/2024 2:50 PM EDT Temperature 36.5 C (97.7 F) 01/12/2024 12:47 PM EDT Respiratory Rate 20 01/12/2024 12:4 [...] Test 1960 HIV Screening 1960 Sigmoidoscopy 1960 Medicare AWV 1961 Pneumococcal Vaccine: 50+ Ye ars (1 of 2 - PCV) 08/06/1979 Zoster Vaccines (1 of 2) 08/06/1979 DTaP,Tdap,and Td Vaccines (1 - Tdap) 1982 COVID-19 Vaccine (2 - Jansse n risk series) 10/05/2020 09/07/2020 Alcohol/Substance Use Screening 06/01/2024 Depression Screening and Follow-Up 06/01/2024 Social Drivers of Health Lory ual Screening 06/01/2024 Influenza Vaccine (#1) 2025 RSV Vaccine (60+ years old a nd patients) (1 - 1-dose 75+ series) 08/06/2035 Hepatitis C Screening Completed 12/17/2023 Hepatitis B Vaccines Aged Out No long er eligible based on patient's age to complete this topic Procedures * Due to [place] [employer] law, this organization might not be sharing negative HIV tests. Procedure Name Priority Date/Time Associated Diagnosis Comments HEPATITIS C ANTIBODY W/REFLEX TO HCV RNA, QUANTITATIVE PCR Timed 12/17/2023 3:33 PM EDT from Last 3 Months or Most Recently Relevant to Health Maintenance Results * Due to [place] [employer] law, this organization might not be sharing negative HIV tests. * Hepatitis C Antibody w/Reflex to HCV RNA, Quantitative PCR (12/17/2023 3:33 PM EDT) Hepatitis C Antibody NON-REACT KARLA NON-REACT KARLA 12/18/2023 4:31 AM EDT [facility] Comment: HCV antibody was non-reactive. There is no laboratory evidence of HCV infection. In most cases, no further action is required. However, if recent HCV exposure is suspected, a test for HCV RNA (test code 91887) is suggested. For additional information please refer to http://education.[employer].Viepage/faq/NLQ80z1 (This link is being provided for informational/ educational purposes only.) Blood Structure of peripheral vein / Unknown Venipuncture / Unknown 12/17/2023 3:33 PM EDT 12/17/2023 3:37 PM EDT [facility] - 12/18/2023 4:31 AM EDT [facility] Received Date:[id number] us Phoebe Lopez PARKING LOT SUPERVISOR LAB BLOOD ORDERABLES Shakira l Result KESHA [place] [address], [address] [place] [address], [place] [phone] [facility] MADELYN SCHNEIDER [address], [address] [place] [address], [place] [phone] from Last 3 Months or Most Recently Relevant to Health Maintenance Insurance MEDICARE [facility] Advance Directives Documents on File Type Date Recorded Patient Suggestion Clerk Expl anation Health Care Proxy 12/07/2023 8:14 AM * Presumed Full Code (Latest Code Status on File) Date Activated Date Inactivated Comments 12/16/2023 3:52 PM 12/19/2023 4:10 PM Care Teams Electronic Prepress System Operator Relationship Specialty Start Date End Date Grant Lopez [address] [place] [address] [place] [address] PCP - General Internal Medicine 10/06/23
--- OUTSIDE RECORDS SUMMARY | 2024-11-30 07:38 | XMS_ITS | Patient Health Record ---
Author Organization [facility] Address [address] [place] [address] Care Team Providers Care Personal Injury Legal Assistant Name Role Phone Grant Lopez MD Primary Care Provider Darren Heredia Jr Unavailable Allergies Allergen (clinical drug ingredient) Drug/Non Drug Allergy documented on EMR Reaction Allergy Type Onset Date Status Pollen Pollen Unknown Allergy Active Reason For Referral No Information Medications Medication SIG (Take, Route, Frequency, Duration) Notes [...] the procedure for 1 day 11/06/2021 Active Immunizations Vaccine Route Administration Date Status Comme nts Influenza Unknown 11/06/2021 Refused Social History Tobacco Use: Social History Observation Description Date Details (start date - stop date) Never Smoker NA - NA Tobacco Use/Smoking Question Answer Notes Patient is a nonsmoker Alcohol Screen Question Answer Notes Did you have a drink containing alcohol in the p ast year? No Points 0 Interpretation Negative Problems Problem Type SNOMED Code ICD Code Onset Dates Problem Status W/U Status Risk Notes Problem [id number] Colon cancer screening (Z12.11) Active confirmed Plan Of Treatment Future Test Test Name Order Date COLONOSCOPY 11/06/2021 Insurance Providers Payer Name Payer Address Payer Phone Subscriber Number Group Number Insured Name Patient Relationship to Insured Coverage Start Date Coverage End Date MEDICARE OF [place] [address] [place], [place] [id number] [facility] Self - patient is the insured Medical (General) History Medical History History ICD Code Seizure disorder Allergic rhinitis Elevated cholesterol Surgical History Surgery Date(Month/Year)
--- OUTSIDE RECORDS SUMMARY | 2024-11-30 07:38 | XMS_ITS | Patient Health Record ---
Author Organization [facility] [place] Address [address] [facility] [place] [address] Care Team Providers Care Scale Tank Operator Name Role Phone Grant Lopez MD Primary Care Provider Mendez Phelps Unavailable [phone] Reason For Referral No Information Medications Medication SIG (Take, Route, Frequency, Duration) Notes Start Date End Date Status Ciclopirox Olamine 0.77% external Apply to effected areas twice a day; Duration: 30 days 04/28/2016 Active Phenytoin Sodium Extended 100 MG Oral; Duration: 30 Active carBAMazepine 200 MG Oral; Duration: 30 Active Night Splint AFO - L1930 as directed 02/18/2016 Active Pravastatin Sodium 10 MG take 1 tablet b y mouth at bedtime Oral; Duration: 30 Active Social History Tobacco use other than smoking: Question Answer Notes Are you an other tobacco user? No Problems Problem Type SNOMED Code ICD Code Onset Dates Problem Status W/U Status Risk Notes Problem Achilles bursitis (571170843) Achilles tendinitis, right leg (M76.61) Active confirmed Problem Tinea pedis (2097279) Tinea pedis (B35.3) Active confirmed Plan Of Treatment Pending Test Test Name Order Date 13215-Oijhoxrg Plate 03/31/2016 13263-Viywwlkw Plate 04/14/2016 Insurance Providers Payer Name Payer Address Payer Phone Subscriber Number Group Number Insured Name Patient Relationship to Insured Coverage Start Date Coverage End Date Medicare [employer] [address] [place] [address] [id number] Myron Allen Self - patient is the insured 6 Medical (General) History Medical History History ICD Code Epilepsy Seizures Chicken pox Cholesterol
== END 2024-11-30 07:37 | disposition home or self-care (01) ==
LOC: HO.CT 07:36
PROVIDERS: PCP Internal Medicine; Visit Provider Urology
DX: C64.9 Malignant neoplasm of unspecified kidney, except renal pelvis (principal)
CPT/HCPCS: 71250

== ENCOUNTER → 2024-11-30 07:42 | Outpatient (BNV) | payer MEDICARE, OTHER, SELFPAY | PROVIDERS: PCP Internal Medicine; Visit Provider Radiology Diagnostic Radiology | DX: N28.89 Other specified disorders of kidney and ureter (principal) | CPT/HCPCS: 71250 ==

== ENCOUNTER → 2024-12-08 11:01 | Outpatient (BNV) | payer MEDICARE, OTHER, SELFPAY | PROVIDERS: PCP Physician Assistant; Visit Provider Radiology Diagnostic Radiology | DX: N28.1 Cyst of kidney, acquired (principal) | CPT/HCPCS: 74183 ==

== ENCOUNTER 2024-12-08 11:08 | Outpatient (REF) | payer MEDICARE, OTHER, SELFPAY ==
--- NOTE | ~2024-12-08 | MR_ITS ---
EXAMINATION: MR ABDOMEN WITHOUT THEN WITH IV CONTRAST HISTORY: C64.9 - Malignant neoplasm of unspecified kidney, except renal pelvis COMPARISON: Comparison is made with the prior examination dated 06/12/2024. TECHNIQUE: Axial in and out of phase T1-weighted gradient echo, axial diffusion weighted, and axial and coronal HASTE T2 with fat saturation images were obtained through the abdomen. Subsequently, fat suppressed axial and coronal T1-weighted images were obtained after the intravenous administration of 10 mL Gadavist. FINDINGS: Liver: There is no loss of signal intensity in the liver on opposed phase imaging to suggest steatosis. Again seen is a 10 mm cyst in the inferior right lobe. Additional smaller cysts are also seen without change. There is no enhancing liver mass. The hepatic and portal veins are patent. There is no intrahepatic biliary dilatation. Gallbladder/biliary tree: There is cholelithiasis. The common bile duct is normal in caliber. No intraluminal filling defects are identified to suggest choledocholithiasis. Spleen: The spleen is unremarkable. Pancreas: The pancreas is unremarkable. There is no enhancing pancreatic mass. The pancreatic duct is normal in caliber. Adrenals: The adrenal glands are unremarkable. Kidneys: The patient is status post right nephrectomy. There are left renal parapelvic cysts. No enhancing masses are identified. There is no hydronephrosis. Lymph nodes: There is no retroperitoneal lymphadenopathy in the upper abdomen. Fluid: There is no ascites in the upper abdomen. Visualized bowel: The visualized bowels loops are unremarkable in appearance. Visualized bones: The visualized bones demonstrate normal marrow signal intensity. MR/MR abdomen wo/w con IMPRESSION: 1. Stable examination. Status post right nephrectomy. Left renal parapelvic cysts. 2. Cholelithiasis. Electronically signed by: Adryan Beltre MD 12/08/2024 12:15 PM EDT
--- OUTSIDE RECORDS SUMMARY | 2024-12-08 11:53 | XMS_ITS | Patient Health Record ---
Author Organization [facility] shawna [place] Address [address] [place] [address] Care Team Providers Care Staffing Consultant Name Role Phone Grant Lopez MD Primary Care Provider Mendez Phelps Unavailable [phone] Reason For Referral No Information Medications Medication [...] W/U Status Risk Notes Problem Achilles bursitis (106552609) Achilles tendinitis, right leg (M76.61) Active confirmed Problem Tinea pedis (3950538) Tinea pedis (B35.3) Active confirmed Plan Of Treatment Pending Test Test Name Order Date [id number] Plate 03/31/2016 [id number] Plate 04/14/2016 Insurance Providers Payer Name Payer Address Payer Phone Subscriber Number Group Number Insured Name Patient Relationship to Insured Coverage Start Date Coverage End Date Medicare National Govt Sv[employer] [address] [place] [address] [phone] [id number] Myron Allen Self - patient is the insured 6 Medical (General) History Medical History History ICD Code Epilepsy Seizures Chicken pox Cholesterol
--- OUTSIDE RECORDS SUMMARY | 2024-12-08 11:53 | XMS_ITS | Patient Health Record ---
Author Organization [facility] Address [address] [place] [address] Care Team Providers Care Actuarial Internship Name Role Phone Grant Lopez MD Primary Care Provider Darren Heredia Jr Unavailable [phone] Allergies Allergen (clinical drug ingredient) Drug/Non Drug [...] Problem Status W/U Status Risk Notes Problem [id number] Colon cancer screening (Z12.11) Active confirmed Plan Of Treatment Future Test Test Name Order Date COLONOSCOPY 11/06/2021 Insurance Providers Payer Name Payer Address Payer Phone Subscriber Number Group Number Insured Name Patient Relationship to Insured Coverage Start Date Coverage End Date MEDICARE OF [place] [address] [place], [place] [id number] [facility] Self - patient is the insured Medical (General) History Medical History History ICD Code Seizure disorder Allergic rhinitis Elevated cholesterol Surgical History Surgery Date(Month/Year)
--- OUTSIDE RECORDS SUMMARY | 2024-12-08 11:53 | XMS_ITS | Clinical Summary ---
Author Organization [facility] Address [address] [place] [address] Care Team Providers Care Counterintelligence Specialist Name Role Phone Grant Lopez Primary Care Provider Allergies No known active allergies Medications carBAMazepine [...] complete this topic Procedures * Due to [place] Sionex law, this organization might not be sharing negative HIV tests. Procedure Name Priority Date/Time Associated Diagnosis Comments HEPATITIS C ANTIBODY W/REFLEX TO HCV RNA, QUANTITATIVE PCR Timed 12/17/2023 3:33 PM EDT from Last 3 Months or Most Recently Relevant to Health Maintenance Results * Due to [place] Sionex law, this organization might not be sharing negative HIV tests. * Hepatitis C Antibody w/Reflex to HCV RNA, Quantitative PCR (12/17/2023 3:33 PM EDT) Hepatitis C Antibody NON-REACT KARLA NON-REACT KARLA 12/18/2023 4:31 AM EDT [place] [facility] Comment: HCV antibody was non-reactive. There is no laboratory evidence of HCV infection. In most cases, no further action is required. However, if recent HCV exposure is suspected, a test for HCV RNA (test code 33797) is suggested. For additional information please refer to http://education.[employer].nlyte Software/faq/WGX22x2 (This link is being provided for informational/ educational purposes only.) Blood Structure of peripheral vein / Unknown Venipuncture / Unknown 12/17/2023 3:33 PM EDT 12/17/2023 3:37 PM EDT [facility] - 12/18/2023 4:31 AM EDT [facility] Received Date:[id number] us Phoebe Lopez MARRIAGE AND FAMILY THERAPIST LAB BLOOD ORDERABLES Shakira l Result KESHA [place] [address], [address] [place] [address], [place] [phone] [facility] MADELYN SCHNEIDER [address], [address] [facility] [place] [address], [place] [phone] from Last 3 Months or Most Recently Relevant to Health Maintenance Insurance MEDICARE [facility] Advance Directives Documents on File Type Date Recorded Patient Contact Lens Molder Expl anation Health Care Proxy 12/07/2023 8:14 AM * Presumed Full Code (Latest Code Status on File) Date Activated Date Inactivated Comments 12/16/2023 3:52 PM 12/19/2023 4:10 PM Care Teams Counterintelligence Specialist Relationship Specialty Start Date End Date Grant Lopez [address] [place] [address] [place] [address] PCP - General Internal Medicine 10/06/23
--- OUTSIDE RECORDS SUMMARY | 2024-12-08 11:53 | XMS_ITS | Clinical Summary ---
Author Organization [facility], Address [address] [place] [address] Phone Care Team Providers Care Interactive Developer Name Role Phone Beatrice Ho Primary Care Provider [phone] Allergies Active Allergy Reactions Criticality Noted Date [...] Visit [facility], - Brianna Jimenez [address] [facility] [address] [place] [address] Frederick Corey MD [address] [place] [address] Health Maintenance Due Date Last Done Comments Pneumococcal Vaccine: 50+ Ye ars (1 of 2 - PCV) 08/06/1979 Colorectal Cancer Screening: Annual FOBT 2009 Colorectal Cancer Screening: Colonoscopy 2009 Colorectal Cancer Screening: Sigmoidoscopy 2009 Diabetes: Hemoglobin A1C 04/08/2024 Diabetes: Ophthalmology Exam 04/08/2024 Diabetes: Pedal Pulse Checked 04/08/2024 Diabetes: Sensory Foot Exam 04/08/2024 Diabetes: Visual Foot Exam 04/08/2024 Influenza Vaccine (#1) 2025 Hepatitis B Vaccine Aged Out No longe r eligible based on patient's age to complete this topic Insurance Medicare [facility] Care Teams Interactive Developer Relationship Specialty Start Date End Date Beatrice Ho [address] [place] [id number] PCP - General 04/06/24
== END 2024-12-08 11:09 | disposition home or self-care (01) ==
LOC: HO.MRI 11:08
PROVIDERS: PCP Physician Assistant; Visit Provider Urology
DX: C64.9 Malignant neoplasm of unspecified kidney, except renal pelvis (principal)
CPT/HCPCS: 74183; A9585

== ENCOUNTER 2024-12-12 14:40 | Outpatient (AMB) | payer MEDICARE, OTHER, SELFPAY ==
--- NOTE | 2024-12-12 14:40 | A.OFFVIS_ITS ---
Intake Visit Reasons: 6 month follow up/ MRI/CT Intake Note: Patient is present for 6M/MRI/CT Urology Medication:TERAZOSIN,FINASTERIDE,SILDENAFIL Antibiotic Allergy:NONE Blood Thinner:NONE Special Education Inclusion Teacher Required: No Allergies No Known Allergies Allergy (Verified 12/12/24 14:41) HPI Comments Details: Minerva is a pleasant male. He is a patient of Dr. Lopez. He is seen for the following urologic conditions - lower urinary tract symptoms - right renal cancer Telemedicine Evaluation 15 min Consultation [employer] [facility] Six-month follow-up MRI 12 m post nephrectomy looks good, creatinine 2.0 Continuing adjuvant therapy till March 25 Continue six-month imaging out to 5 years Six-month follow-up for [address] scan chest noncontrast, abdomen MRI with contrast Lower urinary tract symptoms Progressive Nocturia x2 with hesitation Had been on combination finasteride with tamsulosin Current medication finasteride plus terazosin PSA 11/22 1.0 Right renal cancer - total nephrectomy 12/22 Stage III renal cancer Treated with adjuvant pembrolizumab for total 12 months to finish 03/25 In surveillance Incidental diagnosis during evaluation for BPH Laparoscopic nephrectomy 12/22 Dr. Gorman [facility] MRI 05/23 - exophytic mass lesion protruding from posterior mid right renal cortex, measuring 4.8 cm in AP diameter, 4.5 cm in width, 6.2 cm in vertical height, showing multiple focal T1 hyperintense, T2 hyperintense hemorrhagic components, marked rim enhancement and additional enhancing nodular protrusion with obtuse margins up to 1.9 cm in thickness in addition to multiple enhancing internal septations Imaging - 12/22 CT chest negative - 12/23 abdominal MRI negative, right nephrectomy [facility] Medical History (Updated 11/09/24 @ 12:18 by ROBINSON Billings) Chronic kidney disease, stage III (moderate) Enlarged prostate Renal cancer Diabetes Bleeding hemorrhoids Hyperlipidemia Seizure Surgical History (Updated 11/09/24 @ 12:18 by ROBINSON Billings) History of right radical nephrectomy H/O hemorrhoidectomy (~11/07/22) Hx of colonoscopy (~12/06/21) Family History Brother Cancer of unknown origin Social History Housing: House Alcohol intake: never Patient Tobacco Use Status: Never used Tobacco e-Cigarette/Vaping Use: Never Used service: No Current occupational status: retired Cognitive needs: No Hearing needs: No Vision needs: No Review of Systems Const All systems reviewed & are unremarkable except as noted in HPI and below Reports no additional complaints Resp Reports no additional complaints GI Reports no additional complaints Reports as per HPI Musc Reports no additional complaints Physical Exam Telemedicine evaluation Appropriate responses Regular breathing rate and rhythm HEENT Head: Yes normal to inspection Ears: hearing grossly normal bilaterally Eyes General: appearance normal, both eyes and all related structures Neck Neck: Yes normal visual inspection Chest Chest palpation & inspection: normal inspection of the chest Resp Effort & Inspection: normal respiratory effort and able to speak in complete sentences Telehealth Telehealth Location of provider rendering services: practice address Location of patient: address on file Patient Identification confirmed using: Name, : Yes Telehealth method: voice only Patient verbally consented to treatment: Yes Patient verbally consented to billing insurance company: Yes Patient informed of any privacy concerns related to visit: Yes Assessment & Plan Assessment & Plan (1) Renal cancer: Comment: 12/22 radical nephrectomy stage III adjuvant pembrolizumab Code(s): C64.9 - Malignant neoplasm of unspecified kidney, except renal pelvis Category: Medical Plan Six-month follow-up imaging Orders: Orders CT chest wo IV con 6 Months C64.9 - Malignant neoplasm of unspecified kidney, except renal pelvis MR abdomen wo/w con 6 Months C64.9 - Malignant neoplasm of unspecified kidney, except renal pelvis Patient Instructions: This note is constructed using voice recognition software. While every effort has been made to ensure accuracy cotton machine operator errors may have been included. Imaging studies, laboratory and physical exam results were discussed and reviewed in detail. No major barriers to patient understanding were identified. An opportunity to ask questions regarding the treatment plan was provided. All questions were answered. The patient expressed understanding and agreement with the above treatment plan. The patient is aware they should contact our office by phone for worsening of their current condition or the appearance of new urologic symptoms. Compliance is encouraged with any medications and followup testing that is ordered. It is a privilege to participate in the urologic care of your patient. If you have any questions or concerns regarding treatment for the above conditions, or other urologic issues, please do not hesitate to contact me. The office telephone contact is [phone]. Sincerely, Dr Ramy Chu MD, [facility] - Urology Compassionate Specialist Care for the Genitourinary System Coding Level of Care Code Tele Est Pt Level 3 (72860) Complex EM visit Add On G2211 Diagnoses Renal cancer C64.9
--- OUTSIDE RECORDS SUMMARY | 2024-12-12 15:55 | XMS_ITS | Patient Health Record ---
Author Organization [facility] shawna [place] Address [address] [place] [address] Care Team Providers Care Director Of Solutions Architecture Name Role Phone Grant Lopez MD Primary Care Provider Mendez Phelps Unavailable [phone] Reason For Referral No Information Medications Medication [...] W/U Status Risk Notes Problem Achilles bursitis (655172638) Achilles tendinitis, right leg (M76.61) Active confirmed Problem Tinea pedis (B35.3) Active confirmed Plan Of Treatment Pending Test Test Name Order Date [id number] Plate 03/31/2016 [id number] Plate 04/14/2016 Insurance Providers Payer Name Payer Address Payer Phone Subscriber Number Group Number Insured Name Patient Relationship to Insured Coverage Start Date Coverage End Date Medicare National Govt Svcs Inc [address] [place] [address] [id number] Myron Allen Self - patient is the insured 6 Medical (General) History Medical History History ICD Code Epilepsy Seizures Chicken pox Cholesterol
--- OUTSIDE RECORDS SUMMARY | 2024-12-12 15:55 | XMS_ITS | Clinical Summary ---
Author Organization [facility], Address [address] [place] [address] Phone Care Team Providers Care Machine Operator Name Role Phone Beatrice Ho Primary Care Provider [phone] Allergies Active Allergy Reactions Criticality Noted Date [...] Visit [facility], - Brianna Jimenez [address] [address] [place] [address] Frederick Corey MD [address] [place] [address] Health Maintenance Due Date Last Done Comments [...] age to complete this topic Insurance Medicare [facility] Care Teams Machine Operator Relationship Specialty Start Date End Date Beatrice Ho [address] [place] [id number] PCP - General 04/06/24
--- OUTSIDE RECORDS SUMMARY | 2024-12-12 15:55 | XMS_ITS | Clinical Summary ---
Author Organization [facility] Address [address] [place] [address] Care Team Providers Care Medical Esthetician Name Role Phone Grant Lopez Primary Care Provider [phone] Allergies No known active allergies Medications carBAMazepine [...] complete this topic Procedures * Due to [place] SFOX law, this organization might not be sharing negative HIV tests. Procedure Name Priority Date/Time Associated Diagnosis Comments HEPATITIS C ANTIBODY W/REFLEX TO HCV RNA, QUANTITATIVE PCR Timed 12/17/2023 3:33 PM EDT from Last 3 Months or Most Recently Relevant to Health Maintenance Results * Due to [place] SFOX law, this organization might not be sharing negative HIV tests. * Hepatitis C Antibody w/Reflex to HCV RNA, Quantitative PCR (12/17/2023 3:33 PM EDT) Hepatitis C Antibody NON-REACT KARLA NON-REACT KARLA 12/18/2023 4:31 AM EDT [facility] Comment: HCV antibody was non-reactive. There is no laboratory evidence of HCV infection. In most cases, no further action is required. However, if recent HCV exposure is suspected, a test for HCV RNA (test code 44343) is suggested. For additional information please refer to http://education.[employer].Thinkful/faq/JWO64i0 (This link is being provided for informational/ educational purposes only.) Blood Structure of peripheral vein / Unknown Venipuncture / Unknown 12/17/2023 3:33 PM EDT 12/17/2023 3:37 PM EDT [facility] - 12/18/2023 4:31 AM EDT [facility] Received Date:[id number] us Phoebe Lopez SAWMILL WORKER LAB BLOOD ORDERABLES Shakira l Result KESHA [place] [address], [address] [place] [address], [place] [phone] [facility] MADELYN SCHNEIDER [address], [address] [facility] [address], [place] [phone] from Last 3 Months or Most Recently Relevant to Health Maintenance Insurance MEDICARE [facility] Advance Directives Documents on File Type Date Recorded Patient Evidence Specialist Expl anation Health Care Proxy 12/07/2023 8:14 AM * Presumed Full Code (Latest Code Status on File) Date Activated Date Inactivated Comments 12/16/2023 3:52 PM 12/19/2023 4:10 PM Care Teams Medical Esthetician Relationship Specialty Start Date End Date Grant Lopez [address] [place] [address] [place] [address] PCP - General Internal Medicine 10/06/23
--- OUTSIDE RECORDS SUMMARY | 2024-12-12 15:56 | XMS_ITS | Patient Health Record ---
Author Organization [facility] Address [address] [place] [address] Care Team Providers Care Manager Of Security Name Role Phone Jessica (RETIRED) Grant GOLD Primary Care Provide Darren Menjivar Jr Unavailable Allergies Allergen (clinical drug ingredient) [...] Problem Status W/U Status Risk Notes Problem [id number] Colon cancer screening (Z12.11) Active confirmed Plan Of Treatment Future Test Test Name Order Date COLONOSCOPY 11/06/2021 Insurance Providers Payer Name Payer Address Payer Phone Subscriber Number Group Number Insured Name Patient Relationship to Insured Coverage Start Date Coverage End Date MEDICARE OF [place] [address] [place] [address] [id number] [facility] Self - patient is the insured Medical (General) History Medical History History ICD Code Seizure disorder Allergic rhinitis Elevated cholesterol Surgical History Surgery Date(Month/Year)
== END 2024-12-12 15:17 | disposition home or self-care (01) ==
LOC: HO.HUSH 14:40
PROVIDERS: PCP Physician Assistant; Visit Provider Urology
DX: C64.9 Malignant neoplasm of unspecified kidney, except renal pelvis (principal)
CPT/HCPCS: 99213; G2211

== ENCOUNTER 2025-03-09 15:23 | Outpatient (REF) | payer OTHER, MEDICARE, SELFPAY ==
[2025-03-09 19:45] LABS: Alanine Aminotransferase 33 U/L (0-40); Albumin Level 4.2 g/dL (3.5-5.0); Alkaline Phosphatase 129 U/L (39-117); Anion Gap 15 (12-20); Aspartate Amino Transferase 20 U/L (5-37); Blood Urea Nitrogen 25 mg/dL (9-16); Calcium 9.0 mg/dL (8.4-10.2); Carbon Dioxide 26 mmol/L (22-29); Chloride 110 mmol/L (96-108); Estimated Glomerular Filt Rate 35; Potassium 4.3 mmol/L (3.3-5.1); Sodium 147 mmol/L (135-145); Total Protein 6.5 g/dL (6.5-8.0)
[2025-03-10 09:00] LABS: HBsAGNum1 0.52 S/CO (0.00-0.99); HIV Num 1 0.06 S/CO (0.00-0.99); Hepatitis B Surface Antigen Negative (Negative); ~HepC Num1 0.06 S/CO (0.00-0.79); ~Hepatitis C Antibody Nonreactive (Nonreactive)
[2025-03-13 09:23] LABS: HIV RNA PCR Qn Copies NOT DETECTED copies/mL (NOT DETECTED); HIV RNA PCR Qn Log Copies NOT DETECTED (NOT DETECTED)
== END 2025-03-09 15:24 | disposition home or self-care (01) ==
LOC: HO.LAB 15:23
PROVIDERS: PCP Physician Assistant; Visit Provider Physician Assistant Medical
DX: J20.9 Acute bronchitis, unspecified (principal); W46.0XXA Contact with hypodermic needle, initial encounter; Z79.2 Long term (current) use of antibiotics; Z79.84 Long term (current) use of oral hypoglycemic drugs; Z79.899 Other long term (current) drug therapy
CPT/HCPCS: 36415; 80053; 86803; 87340; 87389; 87536

== ENCOUNTER 2025-03-11 07:35 | Emergency (ER) | payer OTHER, MEDICARE, SELFPAY ==
[2025-03-11 07:38] VITALS: BP 135/74; PULSE 81; RESP 17; TEMP 36.6; O2SAT 98; BMI 36.0
[2025-03-11 07:47] VITALS: BP 136/74; PULSE 97; RESP 16; TEMP 36.5; O2SAT 97
--- NOTE | 2025-03-11 07:51 | PC.NURSE ---
Patient presents to ED after needle stick on Thursday Patient was changing a tire when he got poked in the left index finger Denies pain, sob, fever, cough, chills Patient unsure about last tetanus shot Patient saw his PCP who performed labs (results pending) and prescribed discovy Patient unable to take discovy as his insurance doesnt cover all the medication VSS and up to date Provider in to see patient Plan of care on going
--- OUTSIDE RECORDS SUMMARY | 2025-03-11 08:02 | XMS_ITS | Encounter Summary ---
Author Organization [facility] Address [address] [place] [address] Phone Care Team Providers Care Salicylic Acid Blender Name Role Phone Grant Lopez MD Primary Care Provider Sam Livingston MB Unavailable [phone] MakenzieGrace [facility] Unavailable Reason for Visit * Reason Onset Date Comments covid 02/08/2025 Encounter Details Date Type Department Care Team (Late st Contact Info) Description 02/08/2025 Telephone [facility] [address] [place] [address] Sam Livingston, LARISSA [address] [place] [address] [email or web address] () Social History Tobacco Use Types Packs/Day Years Used Date Smoking Tobacco: Never Smokeless Tobacco: Never Alcohol Use Standard Drinks/Week Comments Never 0 (1 standard drink = 0.6 oz pur e alcohol) Education Answer Date Recorded Are you interested in more education? Not on blas e 02/16/2024 Are you concerned about learning? Not on file 02/16/2024 No 02/16/2024 No 02/16/2024 Digital Access Answer Date Recorded No 02/16/2024 No 02/16/2024 Reliable internet access at home? Not on file 02/16/2024 Device with a working camera? 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 Supposed to have appts tomorrow and treatment on Thursday. Appts cancelled for this week Advised in calling his pcp for possible treatment and symptom management Let her know scheduling would be in touch re new appts. Advised they keep up posted on how he is feeling documented in this encounter Plan of Treatment Upcoming Encounters Date Type Department Care Team (Late st Contact Info) Description 02/17/2025 Procedure Pass [address] [address] 06/12/2025 9:30 AM EST Appointment [address] [address] Beatrice Ho FNP [address] [place] [address] 06/21/2025 9:20 AM EST Appointment [facility] [address] [place] [address] Sam Livingston MBBS [address] [place] [phone] [email or web address] 06/21/2025 10:20 AM EST Office Visit [facility] at [address] [address] Sam Livingston MBBS [address] [place] [address] [email or web address] documented as of this encounter Visit Diagnoses Not on filedocumented in this encounter Care Teams Salicylic Acid Blender Relationship Specialty Start Date End Date Grant Lopez MD [address] [place] [address] [place] [address] PCP - General Internal Medicine 02/25/24 Sam Livingston MBBS [address] [place] [address] [email or web address] Primary Oncologist Medical Oncology 09/15/24 Grace Banegas CNP [address] [place] [address] [email or web address] Nurse Practitioner 11/30/24 documented as of this encounter Additional Source Comments The information contained in this document represents components of the legal health record. It is not the complete legal health record.[facility]
--- OUTSIDE RECORDS SUMMARY | 2025-03-11 08:02 | XMS_ITS ---
Author Organization [facility] Address [address] [place] [address] Care Team Providers Care Field Interviewer Name Role Phone Grant Lopez Primary Care Provider Active Problems Problem Noted Date Diagnosed Date Malignant neoplasm of right kidney 03/27/2024 Current Treatment and Therapy Plans No current plan information found. Past Treatment and Therapy Plans No past plan information found. Lifetime Dose Tracking * Chemical Lifetime Dose Automatic Entry Manual Entr y TotalDLP 2,122 mGy 2,122 mGy 0 mGy [id number] 27.6 mSv 27.6 mSv 0 mSv CTDIvol Max 17.5 mGy 17.5 mGy 0 mGy CTDIvol Min 14.4 mGy 14.4 mGy 0 mGy Resolved Problems Problem Noted Date Diagnosed Date Resolved Date Renal mass 10/22/2023 03/27/2024
--- OUTSIDE RECORDS SUMMARY | 2025-03-11 08:02 | XMS_ITS | Encounter Summary ---
Author Organization [facility] Address [address] [place] [address] Phone Care Team Providers Care Senior Accounting Associate Name Role Phone Grant Lopez MD Primary Care Provider Sam Livingston MBBS Unavailable [phone] Grace Banegas CONGRESSIONAL REPRESENTATIVE Unavailable Encounter Details Date Type Department Care Team (Late st Contact Info) Description 02/06/2025 Orders Only [facility] at [address] [address] Rukhsana Rosa [address] [place] [address] 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 Not on file Not on file Not on file documented as of this encounter Plan of Treatment Upcoming Encounters Date Type Department Care Team (Late st Contact Info) Description 02/17/2025 Procedure Pass [facility], [address] [address] 06/12/2025 9:30 AM EST Appointment [address] [address] Beatrice Ho FNP [address] [place] [address] [email or web address] 06/21/2025 9:20 AM EST Appointment [facility] [address] [place] [address] Sam Livingston MBBS [address] [place] [address] [email or web address] 06/21/2025 10:20 AM EST Office Visit [facility] at [address] [address] Sam Livingston MBBS [address] [place] [address] [email or web address] documented as of this encounter Results * TSH with reflex (02/17/2025 7:58 AM EDT) TSH 1.00 0.27 - 4.20 uIU/mL [facility] Blood 02/17/2025 7:58 AM EDT 02/17/2025 8:04 AM EDT Sam DIAS LAB BLOOD ORDERABLES Final Result [address] [address] * (ABNORMAL) Comprehensive metabolic panel (02/17/2025 7:58 AM EDT) SODIUM 140 133 - 146 mmol/L [facility] POTASSIUM 4.6 3.3 - 5.1 mmol/L [facility] CHLORIDE 106 96 - 108 mmol/L [facility] CO2 23 21 - 35 mmol/L [facility] BUN 25(H) 6 - 19 mg/dL [facility] CREATININE 1.80(H) 0.5 - 1.5 mg/dL [facility] GLUCOSE 199(H) 70 - 99 mg/dL [facility] ALBUMIN 4.0 3.9 - 4.8 g/dL [facility] TOTAL PROTEIN 6.6 6.5 - 8.0 g/dL [facility] CALCIUM 8.7 8.4 - 10.3 mg/dL [facility] ALKALINE PHOSPHATASE 136(H) 39 - 117 U/L [facility] TOTAL BILIRUBIN <0.2 0.0 - 1.2 mg/dL [facility] AST 14 0 - 37 U/L [facility] ALT 22 0 - 40 U/L [facility] GLOBULIN 2.6 1 - 4.8 g/dL [facility] EGFR 42(L) >59 mL/min/1.7 3m2 [facility] Comment:Estimated glomerular filtration rate calculated using the CKD-EPI refit equation. ANION GAP 16 10 - 20 mmol/L [facility] Blood 02/17/2025 7:58 AM EDT 02/17/2025 8:04 AM EDT us Sam DIAS LAB BLOOD ORDERABLES Final Result [address] [address] * (ABNORMAL) CBC and differential (02/17/2025 7:58 AM EDT) WBC 4.74 4.00 - 11.00 K/uL [facility] RBC 4.43(L) 4.50 - 5.90 M/uL [facility] HGB 11.4(L) 13.5 - 17.5 g/dL [facility] HCT 37.0(L) 41.0 - 53.0 % [facility] PLT 209 150 - 450 K/uL [facility] MCV 83.5 80.0 - 100.0 fL [facility] MCH 25.7(L) 27.0 - 31.0 pg [facility] MCHC 30.8(L) 32.0 - 36.0 g/dL [facility] RDW 14.4 11.5 - 14.5 % [facility] MPV 9.4 8.4 - 12.0 fL [facility] NRBC 0.00 0.00 /100 WBCs [facility] ABSOLUTE NRBC 0.00 0.00 K/uL [facility] DIFF METHOD Auto [facility] NEUTS 69.2 48.0 - 76.0 % [facility] LYMPHS 19.0 18.0 - 41.0 % [facility] MONOS 9.1 4.0 - 11.0 % [facility] EOS 2.1 0.0 - 5.0 % [facility] BASOS 0.2 0.0 - 1.5 % [facility] Granulocytes, immature (%) 0.4 0.0 - 0.9 % [facility] ABSOLUTE NEUTS 3.28 1.92 - 7.60 K/uL [facility] ABSOLUTE LYMPHS 0.90 0.72 - 4.10 K/uL [facility] ABSOLUTE MONOS 0.43 0.16 - 1.10 K/uL [facility] ABSOLUTE EOS 0.10 0.00 - 0.50 K/uL [facility] ABSOLUTE BASOS 0.01 0.00 - 0.15 K/uL [facility] Granulocytes, immature 0.02 0.00 - 0.09 K/uL [facility] Blood 02/17/2025 7:58 AM EDT 02/17/2025 8:04 AM EDT us Sam DIAS LAB BLOOD ORDERABLES Final Result [address] [id number] documented in this encounter Visit Diagnoses Diagnosis Renal cell carcinoma of right kidney- Primary documented in this encounter Care Teams Senior Accounting Associate Relationship Specialty Start Date End Date Grant Lopez MD [address] [place] [address] [place] [address] PCP - General Internal Medicine 02/25/24 Sam Livingston MBBS [address] [place] [address] [email or web address] Primary Oncologist Medical Oncology 09/15/24 Grace Banegas CNP [address] [place] [address] [email or web address] Nurse Practitioner 11/30/24 documented as of this encounter Additional Source Comments The information contained in this document represents components of the legal health record. It is not the complete legal health record.[facility]
--- OUTSIDE RECORDS SUMMARY | 2025-03-11 08:02 | XMS_ITS ---
Author Organization [facility] Address [address] [place] [address] Phone Care Team Providers Care Driver'S License Examiner Name Role Phone Grant Lopez MD Primary Care Provider Sam Livingston Unavailable [phone] Grace Banegas APPEALS REPRESENTATIVE Unavailable Active Problems Problem Noted Date Diagnosed Date Renal cell carcinoma of right kidney 02/24/2024 Cancer Staging:Pathologic stage from 12/16/2023:Stage III(pT3a, pNX, cM0) - Signed by Sam Livingston MBBS on 02/24/2024 Assessment & Plan (12/29/2024 9:12 AM EDT): IMPRESSION: This is a 64-year-old man with the following diagnosis: 12/15/2024: RENAL CELL CARCINOMA, Right, CLEAR CELL TYPE, NUCLEAR GRADE 2, 5.6 CM. Tumor focally extends into diana-renal adipose tissue. Pathologic stage III: pT3a, Nx (AJCC, 8 ed., 2017) Patient is s/p right radical nephrectomy DISCUSSION: I discussed overall impression, natural history of the disease, stage of the disease, prognosis and further management in this regard. Stage III renal cell cancer after resection followed by adjuvant immunotherapy has good prognosis with high cure rates. Patient has been tolerating current adjuvant therapy without any side effects or complications and will continue as planned. I discussed the potential toxicity including immune mediated side effects from immunotherapy. I also discussed surveillance as per NCCN guidelines. Abdominal imaging is recommended within 6 months of surveillance initiation that at least annually. 06/2024: Abdominal MRI was unremarkable. I reassured him about this. Patient has been doing well from oncological standpoint without any evidence of cancer recurrence and I reassured him about this. RECOMMENDATIONS: Next dose of pembrolizumab immunotherapy today 1 year of adjuvant treatment is planned -patient will complete in 03/2025 Next abdominal imaging to be done in 06/2025 Return for follow-up in 3 weeks Thank you very much for allowing to participate in this patient's care Assessment & Plan (10/29/2024 4:48 PM EDT): IMPRESSION: This is a 64-year-old man with the following diagnosis: 12/15/2024: RENAL CELL CARCINOMA, Right, CLEAR CELL TYPE, NUCLEAR GRADE 2, 5.6 CM. Tumor focally extends into diana-renal adipose tissue. Pathologic stage III: pT3a, Nx (AJCC, 8 ed., 2017) Patient is s/p right radical nephrectomy DISCUSSION: I discussed overall impression, natural history of the disease, stage of the disease, prognosis and further management in this regard. Stage III renal cell cancer after resection followed by adjuvant immunotherapy has good prognosis with high cure rates. Patient has been tolerating current adjuvant therapy without any side effects or complications and will continue as planned. I discussed the potential toxicity including immune mediated side effects from immunotherapy. I also discussed surveillance as per NCCN guidelines. Abdominal imaging is recommended within 6 months of surveillance initiation that at least annually. 06/2024: Abdominal MRI was unremarkable. I reassured him about this. Patient has been doing well from oncological standpoint without any evidence of cancer recurrence and I reassured him about this. RECOMMENDATIONS: Next dose of pembrolizumab immunotherapy today 1 year of adjuvant treatment is planned -patient will complete in 03/2025 Next abdominal imaging to be done in 06/2025 Return for follow-up in 3 weeks Thank you very much for allowing to participate in this patient's care Assessment & Plan (09/16/2024 12:07 PM EDT): IMPRESSION: This is a 64-year-old man with the following diagnosis: 12/15/2024: RENAL CELL CARCINOMA, Right, CLEAR CELL TYPE, NUCLEAR GRADE 2, 5.6 CM. Tumor focally extends into diana-renal adipose tissue. Pathologic stage III: pT3a, Nx (AJCC, 8 ed., 2017) Patient is s/p right radical nephrectomy DISCUSSION: I discussed overall impression, natural history of the disease, stage of the disease, prognosis and further management in this regard. Stage III renal cell cancer after resection followed by adjuvant immunotherapy has good prognosis with high cure rates. Patient has been tolerating current adjuvant therapy without any side effects or complications and will continue as planned. I discussed the potential toxicity including immune mediated side effects from immunotherapy. I also discussed surveillance as per NCCN guidelines. Abdominal imaging is recommended within 6 months of surveillance initiation that at least annually. 06/2024: Abdominal MRI was unremarkable. I reassured him about this. RECOMMENDATIONS: Next dose of pembrolizumab immunotherapy tomorrow 1 year of adjuvant treatment is planned -patient will complete in 03/2026 Next abdominal imaging to be done in 06/2025 Return for follow-up in 3 weeks Thank you very much for allowing to participate in this patient's care Assessment & Plan (02/24/2024 3:59 PM EDT): IMPRESSION: RENAL CELL CARCINOMA, CLEAR CELL TYPE, NUCLEAR GRADE 2, 5.6 CM. - Tumor focally extends into diana-renal adipose tissue. - Pathologic stage: pT3a, Nx (AJCC, 8 ed., 2017) - See synoptic report below for further information. DISCUSSION: RECOMMENDATIONS: Thank you very much for allowing to participate in this patient's care Current Treatment and Therapy Plans Pembrolizumab 200 mg every 3 weeks* Plan Start Date:03/04/2024 Plan Provider:Rom Griffith MD Linked Problems Renal cell carcinoma of [facility] kidney Treatment Medications pembrolizumab (KEYTRUDA) IVPB Bag Past Treatment and Therapy Plans No past plan information found.
--- OUTSIDE RECORDS SUMMARY | 2025-03-11 08:02 | XMS_ITS | Clinical Summary ---
Author Organization [facility] Address [address] [place] [address] Care Team Providers Care Chief Clinical Dietitian Name Role Phone Grant Lopez Primary Care Provider [phone] Allergies No known active allergies Medications carBAMazepine [...] complete this topic Procedures * Due to [place] [employer] [place] law, this organization might not be sharing negative HIV tests. Procedure Name Priority Date/Time Associated Diagnosis Comments HEPATITIS C ANTIBODY W/REFLEX TO HCV RNA, QUANTITATIVE PCR Timed 12/17/2023 3:33 PM EDT from Last 3 Months or Most Recently Relevant to Health Maintenance Results * Due to [place] [employer] [place] law, this organization might not be sharing negative HIV tests. * Hepatitis C Antibody w/Reflex to HCV RNA, Quantitative PCR (12/17/2023 3:33 PM EDT) Hepatitis C Antibody NON-REACT KARLA NON-REACT KARLA 12/18/2023 4:31 AM EDT [facility] Comment: HCV antibody was non-reactive. There is no laboratory evidence of HCV infection. In most cases, no further action is required. However, if recent HCV exposure is suspected, a test for HCV RNA (test code 01960) is suggested. For additional information please refer to http://education.SmashChart.Jobber/faq/CFG83q3 (This link is being provided for informational/ educational purposes only.) Blood Structure of peripheral vein / Unknown Venipuncture / Unknown 12/17/2023 3:33 PM EDT 12/17/2023 3:37 PM EDT [facility] - 12/18/2023 4:31 AM EDT [facility] Received Date:[id number] us Phoebe Lopez [employer] OPERATOR LAB BLOOD ORDERABLES Shakira l Result KESHA [place] [address], [address] [place] [address], [place] [phone] [facility] MADELYN SCHNEIDER [address], [address] [facility] [place] [address], [place] [phone] from Last 3 Months or Most Recently Relevant to Health Maintenance Insurance MEDICARE [facility] Advance Directives Documents on File Type Date Recorded Patient Silver [employer] Expl anation Health Care Proxy 12/07/2023 8:14 AM * Presumed Full Code (Latest Code Status on File) Date Activated Date Inactivated Comments 12/16/2023 3:52 PM 12/19/2023 4:10 PM Care Teams Chief Clinical Dietitian Relationship Specialty Start Date End Date Grant Lopez [address] [place] [address] [place] [address] PCP - General Internal Medicine 10/06/23
--- OUTSIDE RECORDS SUMMARY | 2025-03-11 08:02 | XMS_ITS | Patient Health Record ---
Author Organization [facility] Address [address] [place] [address] Care Team Providers Care Behavioral Health Assistant Name Role Phone Jessica (RETIRED) Grant GOLD Primary Care Provide Darren Menjivar Jr Unavailable Allergies Allergen (clinical drug ingredient) Drug/Non Drug Allergy documented on EMR Reaction Allergy Type Onset Date Status Pollen Pollen Unknown Allergy Active Reason For Referral No Information Medications Medication SIG (Take, Route, Frequency, Duration) Notes Start Date End Date Status Fluticasone Propionate 50 MCG/ACT Nasal; Duration: 90 Active Phenytoin Sodium Extended 100 MG Oral; Duration: 30 Active Pravastatin Sodium 20 MG Oral; Duration: 90 Active carBAMazepine 200 MG Oral; Duration: 30 Active MiraLax (colon prep) 17 GM/SCOOP mixed with Gatorade or Crystal Light Orally begin at 5:00 p.m. the day before the procedure; Duration: 1 day 11/06/2021 Active Immunizations Vaccine Route [...] Problem Status W/U Status Risk Notes Problem Colon cancer screening (259799147) Colon cancer screening (Z12.11) Active confirmed Plan Of Treatment Future Test Test Name Order Date COLONOSCOPY 11/06/2021 Insurance Providers Payer Name Payer Address Payer Phone Subscriber Number Group Number Insured Name Patient Relationship to Insured Coverage Start Date Coverage End Date MEDICARE OF [place] [address] [place] [address] [phone] [id number] EDDA LONDONO Self - patient is the insured Medical (General) History Medical History History ICD Code Seizure disorder Allergic rhinitis Elevated cholesterol Surgical History Surgery Date(Month/Year)
--- OUTSIDE RECORDS SUMMARY | 2025-03-11 08:02 | XMS_ITS | Clinical Summary ---
Author Organization [facility], Address [address] [place] [address] Phone Care Team Providers Care Plant Utilities Engineer Name Role Phone Beatrice Ho Primary Care Provider [phone] Allergies Active Allergy Reactions Criticality Noted Date [...] disorder due to type 2 diabetes mellitus <Unspecified DM Medication; Other diabetic kidney complication> 04/08/2024 Renal cell carcinoma [...] Visit [facility], - Brianna Jimenez [address] [facility] [address] [place] [address] Frederick Corey MD [address] [place] [id number] Health Maintenance Due Date Last Done Comments [...] age to complete this topic Insurance Medicare [facility] Care Teams Plant Utilities Engineer Relationship Specialty Start Date End Date Beatrice Ho [address] [place] [id number] PCP - General 04/06/24
--- OUTSIDE RECORDS SUMMARY | 2025-03-11 08:03 | XMS_ITS | Clinical Summary ---
Author Organization [facility] Address [address] [place] [address] Phone Care Team Providers Care Professor Of English Name Role Phone Grant Lopez MD Primary Care Provider Sam Livingston MBBS Unavailable [phone] Grace Banegas SECOND MATE Unavailable Allergies Active Allergy Reactions Criticality Noted Date Comments Pollen Extracts Unknown 02/25/2024 Medications acetaminophen (TYLENOL) 325 mg tablet Take 650 mg by mouth. 12/19/2023 Active carBAMazepine (TEGRETOL) 200 mg tablet 200 mg. Active docusate sodium (COLACE) 100 MG capsule Take 100 mg by mouth. 12/19/2023 Active finasteride (PROSCAR) 5 mg tablet Take 5 mg by mouth. Active fluticasone propionate (FLONASE) 50 mcg/actuation nasal spray Nasal for 90 Activ e gabapentin (NEURONTIN) 100 MG capsule Take 100 mg by mouth. 12/19/2023 Active metFORMIN (GLUCOPHAGE-XR) 500 MG 24 hr tablet Take 500 mg by mouth daily with breakfast. 11/27/2023 Active phenytoin (DILANTIN) 100 MG ER capsule Take 200 mg by mouth. Active polyethylene glycol (MIRALAX) 17 gram packet Take 17 g by mouth. 12/20/2023 Active pravastatin (PRAVACHOL) 20 MG tablet Oral for 90 Active senna (SENOKOT) 8.6 mg tablet Take 17.2 mg by mouth. 12/19/2023 Active simethicone (MYLICON) 80 mg chewable tablet Take 80 mg by mouth. 12/19/2023 Active terazosin (HYTRIN) 5 MG capsule Take 5 mg by mouth. Active prochlorperazin e (COMPAZINE) 10 MG tabletIndicatio ns:Renal cell carcinoma of right kidney Take 1 tablet (10 mg total) by mouth every 6 (six) hours as needed. 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 (Primary Dx) 02/17/2025 9:00 AM EDT Office Visit [facility] at [address] [address] Beatrice Ho FNP Renal cell carcinoma of right kidney (Primary Dx); Left lower quadrant abdominal pain; Dark stools; Dysuria 02/17/2025 7:50 AM EDT - 02/17/2025 11:59 PM EDT Hospital Encounter [facility] [address] [place] [address] Sam Livingston MBBS Discharge Disposition: Home or Self Care 02/08/2025 Telephone [facility] at [address] [address] Sam Livingston MBBS covid () 02/06/2025 Refill [facility] at [address] [address] Norma Greene, ROMMEL Medication Refill 02/06/2025 Orders Only [facility] at [address] [address] Rukhsana Rosa Renal cell carcinoma of right kidney (Primary Dx) 01/20/2025 8:40 AM EDT Infusion [facility] at [address] [address] Sam Livingston MBBS Romero Losada, Martha Katherine, 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 cell carcinoma of right kidney (Primary Dx) 01/19/2025 9:30 AM EDT Office Visit [facility] at [address] [address] Grace Banegas CNP Renal cell carcinoma of right kidney (Primary Dx); alf (current) use of immunosuppressive biologic; Anemia, unspecified type; Rash; Bilateral lower extremity edema 01/19/2025 8:40 AM EDT - 01/19/2025 11:59 PM EDT Hospital Encounter [address] [address] Sam Livingston MBBS Discharge Disposition: Home or Self Care 01/11/2025 Orders Only [facility] at [address] [address] Daly Scales [place] Renal cell carcinoma of right kidney (Primary Dx) 12/30/2024 9:20 AM EDT Infusion [facility] at [address] [address] Sam Livingston MBBS Mendes, Jennifer, 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 cell carcinoma of right kidney (Primary Dx) 12/29/2024 9:20 AM EDT Office Visit [facility] at [address] [address] Sam Livingston MBBS Renal cell carcinoma of right kidney (Primary Dx) 12/29/2024 8:10 AM EDT - 12/29/2024 11:59 PM EDT Hospital Encounter [facility] [address] [place] [address] Sam Livingston MBBS Discharge Disposition: Home or Self Care 12/22/2024 Orders Only [facility] at [address] [address] Rukhsana Rosa Renal cell carcinoma of right kidney (Primary Dx) 12/09/2024 8:00 AM EDT Infusion [facility] at [address] [address] Sam Livingston MBBS Romero Losada, Kerrie Resendiz RN Renal cell carcinoma of right kidney (Primary Dx) from Last 3 Months Immunizations No known immunizations Family History Medical History Relation Comments Colon cancer Brother 1 Diabetes Brother 1 Pacemaker Brother 1 Prostate cancer Brother 1 Diabetes Brother 2 No Known Problems Brother 3 Seizures Daughter 1 No Known Problems Daughter 2 No Known Problems Daughter 3 No Known Problems Father Stroke Mother Parkinson's disease Sister No Known Problems Son Relation Status Comments Brother 1 Alive Brother 2 Alive Brother 3 Alive Daughter 1 Alive Daughter 2 Alive Daughter 3 Alive Father Mother Sister Alive Son Alive Social History Tobacco Use Types Packs/Day Years Used Date Smoking Tobacco: Never Smokeless Tobacco: Never Tobacco Cessation:Counseling Given: Not Answered Alcohol Use Standard Drinks/Week Comments Never 0 [...] Start Date 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; 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 Not on file Not on file Not on file Last Filed Vital Signs Vital Sign Reading Time Taken Comments Blood Pressure 125/80 02/17/2025 8:32 AM EDT Pulse 91 02/17/2025 8:32 AM EDT Temperature 36.5 C (97.7 F) 02/17/2025 8:32 AM EDT Respiratory Rate 18 01/20/2025 8:55 AM EDT Oxygen Saturation 100% 02/17/2025 8:32 AM EDT Inhaled Oxygen Concentration - - Weight 106.6 kg (235 lb) 02/17/2025 8:32 AM EDT Height 170.2 cm (5' 7.01 ) 01/19/2025 9:00 AM ED T Body Mass Index 36.8 01/19/2025 9:00 AM EDT Plan of Treatment Upcoming Encounters Date Type Department Care Team (Late st Contact Info) Description 02/17/2025 Procedure Pass [address] [address] 06/12/2025 9:30 AM EST Appointment [address] [address] Beatrice Ho FNP [address] [place] [phone] 06/21/2025 9:20 AM EST Appointment [facility] [address] [place] [address] Sam Livingston MBBS [address] [place] [phone] [email or web address] 06/21/2025 10:20 AM EST Office Visit [facility] at [address] [address] Sam Livingston MBBS [address] [place] [phone] [email or web address] Maintenance Due Date Last Done Comments Adult Td,Tdap Booster 1960 CARBAMAZEPINE (TEGRETOL) LEVEL 1960 LIPID PANEL 1960 PHENYTOIN (DILANTIN) LEVEL 1960 DEPRESSION SCREENING 1972 HIV ONE-TIME SCREENING (18-65 YEARS) 1978 PNEUMOCOCCAL VACCINES (50+ years) (1 of 2 - PCV) 08/06/1979 ZOSTER VACCINES (1 of 2) 08/06/1979 COLOGUARD 2005 COLONOSCOPY 2005 COLORECTAL CANCER SCREENING 2005 FIT TEST 2005 FOBT 2005 SIGMOIDOSCOPY 2005 VIRTUAL COLONOSCOPY 2005 INFLUENZA VACCINE (#1) 2024 COVID-19 VACCINE (2 - 2024- season) 2025 09/07/2020 CREATININE LEVEL 02/17/2026 02/17/2025, , 12/29/2024, Additional history exists SCREENING FOR DIABETES 12/09/2027 12/08/2024 RSV VACCINE (1 - 1-dose 75+ series) 08/06/2035 HEPATITIS C SCREENING Completed 12/17/2023 SMOKING STATUS SCREENING (Once After 26 Yrs) Completed 02/17/2025 HEPATITIS A VACCINES Aged Out No long er eligible based on patient's age to complete this topic HIB VACCINES Aged Out No longer eligi ble based on patient's age to complete this topic MENINGOCOCCAL VACCINES (ACWY) Aged Out No longer eligible based on patient's age to complete this topic MENINGOCOCCAL VACCINES (B) Aged Out N o longer eligible based on patient's age to complete this topic Medical Devices Not on file Procedures Procedure Name Priority Date/Time Associated Diagnosis Comments TSH WITH REFLEX Routine 02/17/2025 7:58 AM EDT Renal cell carcinoma of right kidney COMPREHENSIVE METABOLIC PANEL Routine 02/17/2025 7:58 AM EDT Renal cell carcinoma of right kidney CBC AND DIFFERENTIAL Routine 02/17/2025 7:58 AM EDT Renal cell carcinoma of right kidney TSH WITH REFLEX Routine 01/19/2025 8:54 AM EDT Renal cell carcinoma of right kidney COMPREHENSIVE METABOLIC PANEL Routine 01/19/2025 8:54 AM EDT Renal cell carcinoma of right kidney CBC AND DIFFERENTIAL Routine 01/19/2025 8:54 AM EDT Renal cell carcinoma of right kidney TSH Routine 12/29/2024 8:22 AM EDT Renal cell carcinoma of right kidney COMPREHENSIVE METABOLIC PANEL Routine 12/29/2024 8:22 AM EDT Renal cell carcinoma of right kidney CBC AND DIFFERENTIAL Routine 12/29/2024 8:22 AM EDT Renal cell carcinoma of right kidney from Last 3 Months Results * (ABNORMAL) Comprehensive metabolic panel (02/17/2025 7:58 AM EDT) Only the most recent of3 resultswithin the time period is included. SODIUM 140 133 - 146 mmol/L [facility] POTASSIUM 4.6 3.3 - 5.1 mmol/L [facility] CHLORIDE 106 96 - 108 mmol/L [facility] CO2 23 21 - 35 mmol/L [facility] BUN 25(H) 6 - 19 mg/dL [facility] CREATININE 1.80(H) 0.5 - 1.5 mg/dL [facility] GLUCOSE 199(H) 70 - 99 mg/dL [facility] ALBUMIN 4.0 3.9 - 4.8 g/dL [facility] TOTAL PROTEIN 6.6 6.5 - 8.0 g/dL [facility] CALCIUM 8.7 8.4 - 10.3 mg/dL [facility] ALKALINE PHOSPHATASE 136(H) 39 - 117 U/L [facility] TOTAL BILIRUBIN <0.2 0.0 - 1.2 mg/dL [facility] AST 14 0 - 37 U/L [facility] ALT 22 0 - 40 U/L [facility] GLOBULIN 2.6 1 - 4.8 g/dL [facility] EGFR 42(L) >59 mL/min/1.7 3m2 [facility] Comment:Estimated glomerular filtration rate calculated using the CKD-EPI refit equation. ANION GAP 16 10 - 20 mmol/L [facility] Blood 02/17/2025 7:58 AM EDT 02/17/2025 8:[address] [facility] LAB BLOOD ORDERABLES Final Result Performing Organization Address City/[facility]/ZIP Co de Phone Number [address] [address] * TSH with reflex (02/17/2025 7:58 AM EDT) Only the most recent of2 resultswithin the time period is included. TSH 1.00 0.27 - 4.20 uIU/mL [facility] Blood 02/17/2025 7:58 AM EDT 02/17/2025 8:[address] [facility] LAB BLOOD ORDERABLES Final Result Performing Organization Address City/[facility] Co de Phone Number [address] [address] * (ABNORMAL) CBC and differential (02/17/2025 7:58 AM EDT) Only the most recent of3 resultswithin the time period is included. WBC 4.74 4.00 - 11.00 K/uL [facility] RBC 4.43(L) 4.50 - 5.90 M/uL [facility] HGB 11.4(L) 13.5 - 17.5 g/dL [facility] HCT 37.0(L) 41.0 - 53.0 % [facility] PLT 209 150 - 450 K/uL [facility] MCV 83.5 80.0 - 100.0 fL [facility] MCH 25.7(L) 27.0 - 31.0 pg [facility] MCHC 30.8(L) 32.0 - 36.0 g/dL [facility] RDW 14.4 11.5 - 14.5 % [facility] MPV 9.4 8.4 - 12.0 fL [facility] NRBC 0.00 0.00 /100 WBCs [facility] ABSOLUTE NRBC 0.00 0.00 K/uL [facility] DIFF METHOD Auto [facility] NEUTS 69.2 48.0 - 76.0 % [facility] LYMPHS 19.0 18.0 - 41.0 % [facility] MONOS 9.1 4.0 - 11.0 % [facility] EOS 2.1 0.0 - 5.0 % [facility] BASOS 0.2 0.0 - 1.5 % [facility] Granulocytes, immature (%) 0.4 0.0 - 0.9 % [facility] ABSOLUTE NEUTS 3.28 1.92 - 7.60 K/uL [facility] ABSOLUTE LYMPHS 0.90 0.72 - 4.10 K/uL [facility] ABSOLUTE MONOS 0.43 0.16 - 1.10 K/uL [facility] ABSOLUTE EOS 0.10 0.00 - 0.50 K/uL [facility] ABSOLUTE BASOS 0.01 0.00 - 0.15 K/uL [facility] Granulocytes, immature 0.02 0.00 - 0.09 K/uL [facility] Blood 02/17/2025 7:58 AM EDT 02/17/2025 8:04 AM EDT us Ahmad D Livingston MBBS LAB BLOOD ORDERABLES Final Result [address] [address] * TSH (12/29/2024 8:22 AM EDT) TSH 0.82 0.27 - 4.20 uIU/mL [facility] Blood 12/29/2024 8:22 AM EDT 12/29/2024 8:32 AM EDT us Ahmad D Livingston MBBS LAB BLOOD ORDERABLES Final Result [address] [address] from Last 3 Months Insurance MEDICARE PART A & B Member Subscriber Plan / Payer (Ef fective 1996-Present) Name:Myron Lyons Member ID:[id number] Relation to Subscriber:Self Name:Myron Lyons Subscriber ID:[id number] Payer ID:[id number] Group ID:Not on file Type:Medicare Address: [address] MEDIC[address] PART A & B Member Subscriber Plan / Payer (Ef fective 1996-Present) Name:Myron Lyons Member ID:[id number] Relation to Subscriber:Self Name:Myron Lyons Subscriber ID:[id number] Payer ID:[id number] Group ID:Not on file Type:Medicare Address: [address] MEDICARE PART A & B O MEDICARE PART A & B Member Subscriber Plan / Payer (Ef fective 1996-) Name:Myron Lyons Member ID:[id number] Relation to Subscriber:Self Name:Myron Lyons Subscriber ID:[id number] Payer ID:[id number] Group ID:Not on file Type:Medicare Address: [address] MEDICARE PART A & B HMO MEDICARE PART A & B [facility] HMO Advance Directives For more information, please contact: [phone] (9AM - 5PM [place], Thursday-Thursday) Documents on File Type Date Recorded Patient Cover Operator Expl anation Healthcare Proxy 02/25/2024 2:47 PM Myron Bird health care proxy Care Teams Professor Of English Relationship Specialty Start Date End Date Grant Lopez MD [address] [place] [address] PCP - General Internal Medicine 02/25/24 Sam Livingston MBBS [address] [place] [address] [email or web address] Primary Oncologist Medical Oncology 09/15/24 Grace Banegas CNP [address] [place] [phone] [email or web address] Nurse Practitioner 11/30/24 Additional Source Comments The information contained in this document represents components of the legal health record. It is not the complete legal health record.[facility]
--- OUTSIDE RECORDS SUMMARY | 2025-03-11 08:03 | XMS_ITS | Encounter Summary ---
Author Organization [facility], Address [address] [place] [address] Phone Care Team Providers Care Information Clerk Brokerage Name Role Phone Beatrice Ho Primary Care Provider [phone] Encounter Details Date Type Department Care Team (Late st Contact Info) Description 04/06/2024 Documentation Only [facility] [address] [place] [address] [place] [address] [place] [address] [phone] Social History Tobacco Use Types Packs/Day Years [...] Visit [facility] [address] Mark MICHEL [address] [place] [phone] Frederick Corey MD [address] [place] [address] [place] [phone] documented as of this encounter Visit Diagnoses Not on filedocumented in this encounter Care Teams Information Clerk Brokerage Relationship Specialty Start Date End Date Beatrice Ho [address] [place], [place] [phone] PCP - General 04/06/24 documented as of this encounter
--- OUTSIDE RECORDS SUMMARY | 2025-03-11 08:03 | XMS_ITS | Encounter Summary ---
Author Organization [facility] Address [address] [place] [address] Care Team Providers Care Cognos Bi Developer Name Role Phone Grant Lopez Primary Care Provider [phone] Encounter Details Date Type Department Care Team (Late st Contact Info) Description 10/22/2023 Orders Only [facility] Interventional Radiology [address] [place] [address] Ronny Meyer, [address] [place] [address] Social History Tobacco Use Types Packs/Day Years [...] on filedocumented in this encounter Care Teams Cognos Bi Developer Relationship Specialty Start Date End Date Grant Lopez [address] [place] [address] [place] [address] PCP - General Internal Medicine 10/06/23 documented as of this encounter
--- NOTE | 2025-03-11 08:07 | ED.SKABFB ---
HPI - Skin/Abscess/Foreign Bdy General Chief complaint: Skin/Abscess/Foreign Body Stated complaint: needle stick non work related Time Seen by Provider: 03/11/25 08:03 Source: patient and RN notes reviewed Mode of arrival: ambulatory Limitations: no limitations History of Present Illness ED Provider: Sonya Palma PA-C HPI narrative: This is a 64-year-old male, with a past medical history of type 2 diabetes, BPH, seizure disorder, renal cell carcinoma of the right kidney, hyperlipidemia, who presents emergency department with concerns of needle stick which occurred 2 days ago. 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 He is unsure where the needle came from. He states that this poked him in the left 2nd digit. The area immediately bled, he extracted blood from this region, and cleansed it with alcohol. He states that he went to his primary care physician where they michelle labs and sent him post exposure prophylaxis. Patient reports that he went to the pharmacy and these were very expensive medications. He states that the provider told him that the risk is very low and he is unsure if he even wants to go through with being started on these medications. He is unsure when his last tetanus shot was. No other complaints or concerns at this time. Onset (ago): day(s) Tetanus up to date: unsure Relieving factors: none Exacerbating factors: none Context: none Associated symptoms: denies other symptoms Treatments prior to arrival: none Related Data Home Medications ?Medication ?Instructions ?Recorded ?Confirmed sildenafil 50 mg tablet mg PO 11/09/24 phenytoin sodium extended 100 mg 200 mg PO TID 03/09/25 capsule Previous Rx's ?Medication ?Instructions ?Recorded carbamazepine 200 mg tablet 200 mg PO TID #270 tabs 10/25/24 finasteride 5 mg tablet 5 mg PO DAILY 90 days #90 tabs 10/25/24 terazosin 5 mg capsule 5 mg PO BEDTIME 90 days #90 caps 10/25/24 pravastatin 80 mg tablet 80 mg PO BEDTIME #90 tabs 11/15/24 metformin 500 mg tablet,extended 500 mg PO DAILY #90 tabs 11/18/24 release 24 hr azithromycin 250 mg tablet See Rx Instructions PO .COMPLEX #6 03/09/25 (Zithromax Z-Florentin) tabs dolutegravir 50 mg tablet (Tivicay) 50 mg PO DAILY post exposure #28 03/09/25 tabs emtricitabine 200 mg-tenofovir 1 tab PO DAILY post exposure #28 03/09/25 alafenamide fumarate 25 mg tablet tabs (Descovy) Allergies Allergy/AdvReac Type Severity Reaction Status Date / Time No Known Allergies Allergy Verified 03/11/25 07:39 Review of Systems Review of Systems: Constitutional : No Fever, No Chills ENT/Mouth : No sore throat, No Rhinorrhea Eyes: No Eye Pain, No Swelling, No Redness Cardiovascular : No Chest Pain, No SOB Respiratory : No Cough, No Sputum Gastrointestinal : No Nausea, No Vomiting, No Diarrhea, No abdominal Pain Genitourinary : No Dysuria, No Hematuria Musculoskeletal : No joint pain, No Myalgias, No Joint Swelling Skin : No Skin Lesions Neuro : No Weakness, No Numbness, No Headache All other systems reviewed and are negative Yes all other systems are reviewed and are negative Constitutional: Constitutional: Reports as per [facility] Past Medical History Medical History (Updated 03/11/25 @ 08:21 by ROBINSON Kern) Needle stick, hypodermic, accidental Chronic kidney disease, stage III (moderate) Enlarged prostate Renal cancer Diabetes Bleeding hemorrhoids Hyperlipidemia Seizure Surgical History History of right radical nephrectomy H/O hemorrhoidectomy (~11/07/22) Hx of colonoscopy (~12/06/21) Family History Family History (Updated 03/09/25 @ 15:44 by Denisa Tolliver MA) Brother Cancer of unknown origin Mother No problems noted. Father No problems noted. Social History Social History Housing: House Alcohol intake: never Patient Tobacco Use Status: Never used Tobacco Smoked in Last 30 Days: No e-Cigarette/Vaping Use: Never Used Use of substances other than those prescribed or required for medical reasons: No Advance Directives: No Advance Directives Information Provided: No Do you have a plan to hurt others: No Plan service: No Current occupational status: retired Cognitive needs: No Hearing needs: No Vision needs: Yes (rx glasses) Physical Exam Vital Signs: Vital Signs: Last Vital Signs Temp 97.8 F 03/11/25 08:35 Pulse 68 03/11/25 08:35 Resp 18 03/11/25 08:35 BP 121/74 03/11/25 08:35 Pulse Ox 98 03/11/25 08:35 O2 Del Method Room Air 03/11/25 08:35 BMI result Body Mass Index 36.0 Const: General: cooperative, comfortable and no acute distress Orientation/consciousness: patient oriented x3 Limitations: no limitations HEENT: Head: Yes normal to inspection, Yes normocephalic and Yes atraumatic Ears: hearing grossly normal bilaterally General nose exam: Normal external nose present Face and sinus: Yes normal facial exam Mouth: Normal oral and palatal mucosa present, oropharynx normal and moist mucous membranes Throat: Yes posterior oropharynx normal Eyes: General: appearance normal, both eyes and all related structures Eyelids: Yes eyelids normal Conjunctivae: conjunctivae normal Sclerae: sclerae normal Pupils: Equal, round and reactive pupils present EOM: EOMs intact bilaterally Neck: Neck: Yes normal visual inspection, Yes full ROM and Yes no lymphadenopathy Lymphatic: no lymphadenopathy noted Chest: Chest palpation & inspection: normal inspection of the chest Resp: Effort & Inspection: normal respiratory effort and able to speak in complete sentences Auscultation: clear to auscultation bilaterally, no crackles, no rales, no rhonchi and no wheezes Cardio: Rate: regular rate Rhythm: regular rhythm Heart sounds: S1 normal heart sound present and S2 normal heart sound present GI: Inspection: Yes normal to inspection Skin: Other: Left second digit with small punctate puncture wound noted to finger pad. No surrounding erythema, edema. General skin exam: no rashes or lesions noted Trauma: no lacerations or abrasions Wounds: no wounds Neuro: General: patient oriented x3 and moves all extremities Cranial nerves: Yes Equal, round and reactive pupils present Extrem: General: Yes normal to inspection Right upper extremity: normal to inspection Left upper extremity: normal to inspection Right lower extremity: normal to inspection Left lower extremity: normal to inspection Medications Administered Discontinued Medications Generic Name Dose Route Start Last Admin Trade Name Freq PRN Reason Stop Dose Admin Diphtheria/Tetanus/Acell Pertussis 0.5 ml 03/11/25 08:18 03/11/25 08:28 Diphth,Pertus(Acell),Tet Adult 0.5 Ml Syringe IM 03/11/25 08:19 0.5 ml .ONCE ONE Administration Medical Decision Making Medical Decision Making [facility] Narrative: This is a 64-year-old male, with a past medical history of type 2 diabetes, BPH, seizure disorder, renal cell carcinoma of the right kidney, hyperlipidemia, who presents emergency department with concerns of needle stick which occurred 2 days ago. Vital signs WNL. Patient is well-appearing under no acute distress. Patient has punctate wound noted to the left 2nd digit, no evidence of infection. I discussed with patient that amelia a blood borne illness from a old, dirty needle is extremely low. Discussed that this risk is low but not entirely 0% - using MDcalc 0.0001%. Discussed that we can administer the medications to this patient but given low risk, patient decided that he does not want to go through with post exposure prophylaxis. He understands the risks and benefits of his decision. He already had blood work at his PCP yesterday. I encouraged patient to f/u with his PCP. He understands and agrees with plan. TDAP was updated. Differential Diagnosis Differential Diagnoses: The differential diagnosis associated with the presentation includes needle stick, puncture wound, abrasion, cellulitis Lab Data [facility] Lab Attestation statement: I reviewed the patient's lab results. Radiology Impression Discussion of test interpretation with radiology: I have reviewed the radiologist's reading. External Record Review External record reviewed: Inpatient record, Office record, Outpatient record, Prior outpatient labs, Prior outpatient radiology, Primary care record and Outside ED record Discharge Plan Discharge Clinical Impression: Needle stick, hypodermic, accidental Patient Disposition: Home, Self-Care Instructions: Needle Stick Injuries (ED) Additional Instructions: You were seen in the emergency department after being stuck by a needle. You had medication sent over by your primary care physician however this prescription was very expensive. We discussed starting this medication, your risk is very low, approximately 0.0001% - 0.0003% of amelia HIV. We updated your tetanus shot in the department today. You had decided that you would like to follow-up with your primary care physician, and defer this medication at this time. We also deferred labs as you already had these labs performed at your primary care yesterday. We updated your tetanus shot in the department today. If any new or worsening symptoms occur including but not limited to increased redness to the area, fevers, chills, or any other symptoms, please return for re-evaluation. Please call your primary care physician regarding this visit. Prescriptions: No Action carbamazepine 200 mg tablet 200 mg PO TID Qty: 270 1RF finasteride 5 mg tablet 5 mg PO DAILY 90 Days Qty: 90 3RF terazosin 5 mg capsule 5 mg PO BEDTIME 90 Days Qty: 90 1RF pravastatin 80 mg tablet 80 mg PO BEDTIME Qty: 90 1RF metformin 500 mg tablet extended release 24 hr 500 mg PO DAILY Qty: 90 3RF sildenafil 50 mg tablet PO phenytoin sodium extended 100 mg capsule 200 mg PO TID Descovy 200-25 mg tablet 1 tab PO DAILY Qty: 28 0RF azithromycin [Zithromax Z-Florentin] 250 mg tablet See Rx Instructions PO .COMPLEX Qty: 6 0RF Rx Instructions: For 250 mg dose pack: take 500 mg today (day 1), then 250 mg for 4 days (days 2-5) PO Tivicay 50 mg tablet 50 mg PO DAILY Qty: 28 0RF Interventions: ED Discharge Assessment Last Done: 03/11/25 08:33 Discharge Date/Time: 03/11/25 08:38 Print Language: Kazakh
[2025-03-11] MEDS: Diphth,Pertus(ACell),Tet Adult 0.5 ML SYRINGE IM (08:28)
[2025-03-11 08:31] VITALS: BP 136/74; PULSE 97; RESP 16; TEMP 36.5; O2SAT 97
[2025-03-11 08:33] VITALS: BP 136/74; PULSE 97; RESP 16; TEMP 36.5; O2SAT 97
[2025-03-11 08:35] VITALS: BP 121/74; PULSE 68; RESP 18; TEMP 36.6; O2SAT 98
== END 2025-03-11 08:38 | disposition home or self-care (01) ==
PROVIDERS: Emergency Provider Emergency Medicine; PCP Physician Assistant
DX: S61.231A Puncture wound without foreign body of left index finger without damage to nail, initial encounter (principal); W26.9XXA Contact with unspecified sharp object(s), initial encounter; Y93.9 Activity, unspecified; Y92.9 Unspecified place or not applicable; Y99.0 Civilian activity done for income or pay; Z23 Encounter for immunization; Z20.828 Contact with and (suspected) exposure to other viral communicable diseases; Z79.899 Other long term (current) drug therapy
CPT/HCPCS: 90471; 90715; 99284

== ENCOUNTER 2025-04-06 13:27 | Outpatient (REF) | payer MEDICARE, OTHER, SELFPAY ==
[2025-04-06 14:39] LABS: Hematocrit 37.6 % (42.0-52.0); Hemoglobin 11.4 g/dl (14.0-18.0); Mean Corpuscular HGB Conc 30.3 g/dl (31.0-36.0); Mean Corpuscular Hemoglobin 24.6 pg (27.0-33.0); Mean Corpuscular Volume 81.2 fL (80.0-98.0); NRBC Abs Auto 0.000 X10*3/uL (0.0-0.012); NRBC Pct Auto 0.0 /100WBC (0.0-0.2); Platelet Count 245 X10*3/uL (160-400); Red Blood Count 4.63 X10*6/uL (4.60-5.80); White Blood Count 5.4 X10*3/uL (4.8-10.8)
[2025-04-06 15:08] LABS: Alanine Aminotransferase 28 U/L (0-40); Albumin Level 4.2 g/dL (3.5-5.0); Alkaline Phosphatase 121 U/L (39-117); Anion Gap 9 (12-20); Aspartate Amino Transferase 21 U/L (5-37); Blood Urea Nitrogen 22 mg/dL (9-16); Calcium 8.5 mg/dL (8.4-10.2); Carbon Dioxide 27 mmol/L (22-29); Chloride 111 mmol/L (96-108); Estimated Glomerular Filt Rate 37; Potassium 4.4 mmol/L (3.3-5.1); Sodium 143 mmol/L (135-145); Total Protein 6.5 g/dL (6.5-8.0)
[2025-04-07 08:13] LABS: HBS Num1 2.77 mIU/mL (0-7.99); HBc Num1 0.05 S/CO (0.00-0.79); HBsAGNum1 0.40 S/CO (0.00-0.99); HIV Num 1 0.07 S/CO (0.00-0.99); Hepatitis B Surface Antigen Negative (Negative); ~HepC Num1 0.06 S/CO (0.00-0.79); ~Hepatitis B Surface Antibody NONREACTIVE (Nonreactive); ~Hepatitis C Antibody Nonreactive (Nonreactive)
== END 2025-04-06 13:28 | disposition home or self-care (01) ==
LOC: HO.LAB 13:27
PROVIDERS: PCP Physician Assistant; Visit Provider Physician Assistant Medical
DX: E11.9 Type 2 diabetes mellitus without complications (principal); K62.5 Hemorrhage of anus and rectum; R10.32 Left lower quadrant pain; R07.9 Chest pain, unspecified; E78.00 Pure hypercholesterolemia, unspecified; T14.8XXA Other injury of unspecified body region, initial encounter; W46.0XXA Contact with hypodermic needle, initial encounter; R56.9 Unspecified convulsions; C64.9 Malignant neoplasm of unspecified kidney, except renal pelvis; E78.5 Hyperlipidemia, unspecified; Z79.899 Other long term (current) drug therapy
CPT/HCPCS: 36415; 80053; 83036; 85027; 86704; 86706; 86803; 87340; 87389; 96127

== ENCOUNTER → 2025-05-16 08:02 | Outpatient (REF) | payer OTHER, MEDICARE, SELFPAY ==
--- NOTE | 2025-05-16 08:04 | CA_ITS ---
Acquisition Time: 2025-05-16 08:05:03 Total Exercise Time: 00:06:00 Test Indications: CHEST PAIN Medications: Protocol: MINDY Max HR: 148 BPM 94% of Pred: 156 BPM Max BP: 154/64 mmHG Max Work Load: 7.0 METS Exercise stress test with exercise 6 mins of Mindy Protocol, achieving 94% MPHR, without any reports of CP or SOB, without any arrythmias, with normotensive response to exercise. Without any EKG changes meeting criteria for ischemia. In recovery, pt continued to feel well. Test reviewed with Dr. Palacios. Referred By: Sharri Alejandro Electronically Signed By: Jorge Syed
--- OUTSIDE RECORDS SUMMARY | 2025-05-16 08:08 | XMS_ITS | Clinical Summary ---
Author Organization [facility] Address [address] [place] [address] Care Team Providers Care Piston Maker Name Role Phone Grant Lopez Primary Care Provider [phone] Allergies No known active allergies Medications carBAMazepine [...] Lory ual Screening 06/01/2024 Influenza Vaccine (#1) 2024 RSV Vaccine (60+ years old a nd patients) (1 - 1-dose 75+ series) 08/06/2035 Hepatitis C Screening Completed 12/17/2023 Hepatitis B Vaccines Aged Out No long er eligible based on patient's age to complete this topic Procedures * Due to [place] [employer] law, this organization might not be sharing negative HIV tests. Procedure Name Priority Date/Time Associated Diagnosis Comments HEPATITIS C ANTIBODY W/REFLEX TO HCV RNA, QUANTITATIVE PCR Timed 12/17/2023 3:33 PM EDT from Last 3 Months or Most Recently Relevant to Health Maintenance Results * Due to [place] [employer] law, this organization might not be sharing negative HIV tests. * Hepatitis C Antibody w/Reflex to HCV RNA, Quantitative PCR (12/17/2023 3:33 PM EDT) Hepatitis C Antibody NON-REACT KARLA NON-REACT KARLA 12/18/2023 4:31 AM EDT [facility] Comment: HCV antibody was non-reactive. There is no laboratory evidence of HCV infection. In most cases, no further action is required. However, if recent HCV exposure is suspected, a test for HCV RNA (test code 61147) is suggested. For additional information please refer to [email or web address] [email or web address] [email or web address]/UPZ03h0 (This link is being provided for informational/ educational purposes only.) Blood Structure of peripheral vein / Unknown Venipuncture / Unknown 12/17/2023 3:33 PM EDT 12/17/2023 3:37 PM EDT [facility] - 12/18/2023 4:31 AM EDT [facility] Received Date:[id number] us Phoebe Lopez SAMPLE CHECKER LAB BLOOD ORDERABLES Shakira l Result KESHA [place] [address], [address] [place] [address], [place] [phone] [facility] MADELYN SCHNEIDER [address], [address] [place] [address], [place] [phone] from Last 3 Months or Most Recently Relevant to Health Maintenance Insurance MEDICARE [facility] Advance Directives Documents on File Type Date Recorded Patient Surveying Teacher Expl anation Health Care Proxy 12/07/2023 8:14 AM * Presumed Full Code (Latest Code Status on File) Date Activated Date Inactivated Comments 12/16/2023 3:52 PM 12/19/2023 4:10 PM Care Teams Piston Maker Relationship Specialty Start Date End Date Grant Lopez [address] [place] [address] [place] [address] PCP - General Internal Medicine 10/06/23
--- OUTSIDE RECORDS SUMMARY | 2025-05-16 08:08 | XMS_ITS ---
Author Organization [facility] Address [address] [place] [address] Phone Care Team Providers Care Machine Precision Engraver Name Role Phone Grant Lopez MD Primary Care Provider Sam Livingston Unavailable [phone] Grace Banegas CREPE BOX TENDER Unavailable Active Problems Problem Noted Date Diagnosed [...] MD Linked Problems Renal cell carcinoma of [facility] kidney Treatment Medications pembrolizumab (KEYTRUDA) IVPB Bag Past Treatment and Therapy Plans No past plan information found.
--- OUTSIDE RECORDS SUMMARY | 2025-05-16 08:08 | XMS_ITS ---
Author Organization [facility] Address [address] [place] [address] Care Team Providers Care Software Database Architect Name Role Phone Grant Lopez Primary Care Provider [phone] Active Problems Problem Noted Date Diagnosed Date Malignant neoplasm of right kidney 03/27/2024 Current Treatment and Therapy Plans No current plan information found. Past Treatment and Therapy Plans No past plan information found. Lifetime Dose Tracking * Chemical Lifetime Dose Automatic Entry Manual Entr y TotalDLP 2,122 mGy 2,122 mGy 0 mGy [id number] 27.6 mSv 27.6 mSv 0 mSv CTDIvol Max 17.5 mGy 17.5 mGy 0 mGy CTDIvol Min 14.4 mGy 14.4 mGy 0 mGy Resolved Problems Problem Noted Date Diagnosed Date Resolved Date Renal mass 10/22/2023 03/27/2024
--- OUTSIDE RECORDS SUMMARY | 2025-05-16 08:08 | XMS_ITS | Encounter Summary ---
Author Organization [facility] Address [address] [place] [address] Phone Care Team Providers Care Polymerization Engineer Name Role Phone Grant Lopez MD Primary Care Provider Sam Livingston MB Unavailable [phone] MakenzieGrace [facility] Unavailable Reason for Visit * Reason Onset Date Comments covid 02/08/2025 Encounter Details Date Type Department Care Team (Late st Contact Info) Description 02/08/2025 Telephone [facility] [address] [place] [address] Sam Livingston, LARISSA [address] [place] [address] 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 06/21/2025 10:20 AM EST Office Visit [facility] at [address] [address] Sam Livingston MBBS [address] [place] [phone] [email or web address] documented as of this encounter Visit Diagnoses Not on filedocumented in this encounter Care Teams Polymerization Engineer Relationship Specialty Start Date End Date Grant Lopez MD [address] [place] [address] [place] [address] PCP - General Internal Medicine 02/25/24 Sam Livingston MBBS [address] [place] [phone] [email or web address] Primary Oncologist Medical Oncology 09/15/24 Grace Banegas CNP [address] [place] [phone] [email or web address] Nurse Practitioner 11/30/24 documented as of this encounter Additional Source Comments The information contained in this document represents components of the legal health record. It is not the complete legal health record.[facility]
--- OUTSIDE RECORDS SUMMARY | 2025-05-16 08:09 | XMS_ITS | Patient Health Record ---
Author Organization [facility] Address [address] [place] [address] Care Team Providers Care Swine Genetics Researcher Name Role Phone Jessica (RETIRED) Grant GOLD Primary Care Provide Darren Menjivar Jr Unavailable Allergies Allergen (clinical drug ingredient) Drug/Non Drug Allergy documented on EMR Reaction Allergy Type Onset Date Status Pollen Pollen Unknown Allergy Active Reason For Referral No Information Medications Medication SIG (Take, Route, Frequency, Duration) Notes Start Date End Date Status Fluticasone Propionate 50 MCG/ACT Suspension Nasal; Duration: 90 Ac tive Phenytoin Sodium Extended 100 MG Capsule Oral; Duration: 30 Active Pravastatin Sodium 20 MG Tablet Oral; Duration: 90 Active carBAMazepine 200 MG Tablet Oral; Duration: 30 Active MiraLax (colon prep) 17 GM/SCOOP Powder mixed with Gatorade or Crystal Light Orally begin at 5:00 p.m. the day before the procedure; Duration: 1 day 11/06/2021 Active Immunizations Vaccine Route Administration Date Status Comme nts Influenza Unknown 11/06/2021 Refused Social History Tobacco Use: Social History Observation Description Date Details (start date - stop date) Never Smoker NA - NA Social History Drugs/Alcohol: Social Info Question Answer Notes Alcohol Screen Did you have a drink containing alcohol in the past year? No Points 0 Interpretation Negative Tobacco Use: Social Info Question Answer Notes Tobacco Use/Smoking Patient is a nonsmoker Additional Details Category Social Info Options Details Miscellaneous: Marital status: Problems Problem Type SNOMED Code ICD Code Onset Dates Problem Status W/U Status Risk Notes Problem Colon cancer screening (354290538) Colon cancer screening (Z12.11) Active confirmed Plan Of Treatment Future Test Test Name Order Date COLONOSCOPY 11/06/2021 Next Appt Details Provider Name:Darren Michelle zurita Jr, 08/17/2025 02:55:00 PM, [address], [address], [place], [address], Insurance Providers Payer Name Payer Address Payer Phone Subscriber Number Group Number Insured Name Patient Relationship to Insured Coverage Start Date Coverage End Date MEDICARE OF [place] [address] [place] [id number] [phone] [id number] EDDA LONDONO Self - patient is the insured Medical (General) History Medical History History ICD Code Seizure disorder Allergic rhinitis Elevated cholesterol Surgical History Surgery Date(Month/Year)
--- OUTSIDE RECORDS SUMMARY | 2025-05-16 08:09 | XMS_ITS | Patient Health Record ---
Author Organization [facility] Address [address] [facility] [place] [address] Care Team Providers Care Digital Librarian Name Role Phone Grant Lopez MD Primary Care Provider Mendez Phelps Unavailable [phone] Reason For Referral No Information Medications Medication [...] W/U Status Risk Notes Problem Achilles bursitis (469079550) Achilles tendinitis, right leg (M76.61) Active confirmed Problem Tinea pedis (2555734) Tinea pedis (B35.3) Active confirmed Plan Of Treatment Pending Test Test Name Order Date [id number] Plate 03/31/2016 [id number] Plate 04/14/2016 Insurance Providers Payer Name Payer Address Payer Phone Subscriber Number Group Number Insured Name Patient Relationship to Insured Coverage Start Date Coverage End Date Medicare [employer] [address] [place] [address] [id number] Myron Allen Self - patient is the insured 6 Medical (General) History Medical History History ICD Code Epilepsy Seizures Chicken pox Cholesterol
--- OUTSIDE RECORDS SUMMARY | 2025-05-16 08:09 | XMS_ITS | Clinical Summary ---
Author Organization [facility] Address [address] [place] [address] Phone Care Team Providers Care Public Works Supervisor Name Role Phone Grant Lopez MD Primary Care Provider Sam Livingston MBBS Unavailable [phone] Grace Banegas E COMMERCE DIRECTOR Unavailable Allergies Active Allergy Reactions Criticality Noted [...] Team Description 02/17/2025 10:40 AM EDT Infusion [facility] at [address] [address] Sam Livingston MBBS Hickson, Lauren, teaching associate cell carcinoma of right kidney (Primary Dx) 02/17/2025 9:00 AM EDT Office Visit [facility] at [address] [address] Beatrice Ho FNP Renal cell carcinoma of right kidney (Primary Dx); Left lower quadrant abdominal pain; Dark stools; Dysuria 02/17/2025 7:50 AM EDT - 02/17/2025 11:59 PM EDT Hospital Encounter [facility] [address] [address] Sam Livingston MBBS Discharge Disposition: Home or Self Care from Last 3 Months Immunizations No known [...] Start Date 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; 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 on file Not on file Not [...] st Contact Info) Description 02/17/2025 Procedure Pass [facility], [address] [address] 06/12/2025 9:30 AM EST Appointment [address] [address] Beatrice Ho, BUFFING WHEEL RAKER [address] [place] [address] [email or web address] 06/21/2025 9:20 AM EST Blood Draw [facility] MG [address] [place] [address] Sam Livingston MBBS [address] [place] [address] [email or web address] 06/21/2025 10:20 AM EST Office Visit [facility] at [address] [address] Sam Livingston [address] [address] [email or web address] Health Maintenance Due Date Last Done Comments [...] FOBT 2005 SIGMOIDOSCOPY 2005 VIRTUAL COLONOSCOPY 2005 RSV VACCINE (1 - Risk 50-74 years 1-dose series) 2010 INFLUENZA VACCINE (#1) 2024 COVID-19 VACCINE (2 - season) 2025 09/07/2020 CREATININE LEVEL 02/17/2026 02/17/2025, , 12/29/2024, Additional history exists SCREENING FOR DIABETES 12/09/2027 12/08/2024 HEPATITIS C SCREENING Completed 02/25/2024 , 02/25/2024, 12/17/2023 SMOKING STATUS SCREENING (Once After 26 [...] carcinoma of right kidney COMPREHENSIVE METABOLIC PANEL (CMP) Routine 02/17/2025 7:58 AM EDT Renal cell carcinoma of right kidney CBC AND DIFFERENTIAL Routine 02/17/2025 7:58 AM EDT Renal cell carcinoma of right kidney HEPATITIS B CORE ANTIBODY, TOTAL Routine 02/25/2024 2:43 PM EDT Immunotherapy encounter from Last 3 Months or Most Recently Relevant to Health Maintenance Results * (ABNORMAL) Comprehensive metabolic panel (02/17/2025 7:58 AM EDT) SODIUM 140 133 - 146 mmol/L [facility] POTASSIUM 4.6 3.3 - 5.1 mmol/L [facility] CHLORIDE 106 96 - 108 mmol/L [facility] CO2 23 21 - 35 mmol/L [facility] BUN 25(H) 6 - 19 mg/dL [facility] CREATININE 1.80(H) 0.5 - 1.5 mg/dL [facility] GLUCOSE 199(H) 70 - 99 mg/dL [facility] ALBUMIN 4.0 3.9 - 4.8 g/dL [facility] TOTAL PROTEIN 6.6 6.5 - 8.0 g/dL [facility] CALCIUM 8.7 8.4 - 10.3 mg/dL [facility] ALKALINE PHOSPHATASE 136(H) 39 - 117 U/L [facility] TOTAL BILIRUBIN <0.2 0.0 - 1.2 mg/dL [facility] AST 14 0 - 37 U/L [facility] ALT 22 0 - 40 U/L [facility] GLOBULIN 2.6 1 - 4.8 g/dL [facility] EGFR 42(L) >59 mL/min/1.7 3m2 [facility] Comment:Estimated glomerular filtration rate calculated using the CKD-EPI refit equation. ANION GAP 16 10 - 20 mmol/L [facility] Blood 02/17/2025 7:58 AM EDT 02/17/2025 8:04 AM EDT Sam Livingston [facility] LAB BLOOD BKR ORDERABLES F inal Result Performing Organization Address City/[facility]/ZIP Co de Phone Number [address] [address] * TSH with reflex (02/17/2025 7:58 AM EDT) TSH 1.00 0.27 - 4.20 uIU/mL [facility] Blood 02/17/2025 7:58 AM EDT 02/17/2025 8:04 AM EDT us Sam Livingston [facility] LAB BLOOD BKR ORDERABLES F inal Result Performing Organization Address City/[facility]/ZIP Co de Phone Number [address] [address] * (ABNORMAL) CBC and differential (02/17/2025 7:58 AM EDT) WBC 4.74 4.00 - 11.00 K/uL [facility] RBC 4.43(L) 4.50 - 5.90 M/uL [facility] HGB 11.4(L) 13.5 - 17.5 g/dL [facility] HCT 37.0(L) 41.0 - 53.0 % [facility] PLT 209 150 - 450 K/uL [facility] MCV 83.5 80.0 - 100.0 fL [facility] MCH 25.7(L) 27.0 - 31.0 pg [facility] MCHC 30.8(L) 32.0 - 36.0 g/dL [facility] RDW 14.4 11.5 - 14.5 % [facility] MPV 9.4 8.4 - 12.0 fL [facility] NRBC 0.00 0.00 /100 WBCs [facility] ABSOLUTE NRBC 0.00 0.00 K/uL [facility] DIFF METHOD Auto [facility] NEUTS 69.2 48.0 - 76.0 % [facility] LYMPHS 19.0 18.0 - 41.0 % [facility] MONOS 9.1 4.0 - 11.0 % [facility] EOS 2.1 0.0 - 5.0 % [facility] BASOS 0.2 0.0 - 1.5 % [facility] Granulocytes, immature (%) 0.4 0.0 - 0.9 % [facility] ABSOLUTE NEUTS 3.28 1.92 - 7.60 K/uL [facility] ABSOLUTE LYMPHS 0.90 0.72 - 4.10 K/uL [facility] ABSOLUTE MONOS 0.43 0.16 - 1.10 K/uL [facility] ABSOLUTE EOS 0.10 0.00 - 0.50 K/uL [facility] ABSOLUTE BASOS 0.01 0.00 - 0.15 K/uL [facility] Granulocytes, immature 0.02 0.00 - 0.09 K/uL [facility] Blood 02/17/2025 7:58 AM EDT 02/17/2025 8:04 AM EDT us Sam Livingston MBBS LAB BLOOD BKR ORDERABLES F inal Result [facility] [address] [place] [address] * Hepatitis B core antibody, total (02/25/2024 2:43 PM EDT) HEP B CORE AB, TOT NON-REACTI VE NON-REACTI VE [facility] Blood 02/25/2024 2:43 PM EDT 02/25/2024 2:47 PM EDT us Rom Griffith MD LAB BLOOD BKR ORDERABLES Shakira quan Result [facility] [address] [place] [address] from Last 3 Months or Most Recently Relevant to Health Maintenance Insurance MED[place] [id number] [facility] H[facility] MEDICARE PART A & B Member Subscriber Plan / Payer (Ef fective 1996-Present) Name:Myron Lyons Member ID:[id number] Relation to Subscriber:Self Name:Myron Lyons Subscriber ID:[id number] Payer ID:[id number] Group ID:Not on file Type:Medicare Address: [employer] [address] HMO MEDICARE PART A & B O MEDICARE PART A & B HMO MEDICARE PART A & B HMO [facility] Address: [address] [address] MEDICARE PART A & B [facility] Address: [address] [address] Advance Directives For more information, please contact: [phone] (9AM - 5PM [facility], Thursday-Thursday) Documents on File Type Date Recorded Patient Needle Loom Setter Expl anation Healthcare Proxy 02/25/2024 2:47 PM Myron Bird [facility] care proxy Care Teams Public Works Supervisor Relationship Specialty Start Date End Date Grant Lopez MD [address] [place] [address] [place] [address] PCP - General Internal Medicine 02/25/24 Sam Livingston MBBS [address] [place] [address] [email or web address] Primary Oncologist Medical Oncology 09/15/24 Grace Banegas CNP [address] [place] [address] [email or web address] Nurse Practitioner 7/2/25 Additional Source Comments The information contained in this document represents components of the legal health record. It is not the complete legal health record.[facility]
--- OUTSIDE RECORDS SUMMARY | 2025-05-16 08:10 | XMS_ITS | Encounter Summary ---
Author Organization [facility] Address [address] [place] [address] Care Team Providers Care Tool Grinding Technician Name Role Phone Grant Lopez Primary Care Provider [phone] Encounter Details Date Type Department Care Team (Late st Contact Info) Description 10/22/2023 Orders Only [facility] Interventional Radiology [address] [place] [address] Ronny Meyer, [address] [place] [address] Social History Tobacco Use Types Packs/Day Years [...] on filedocumented in this encounter Care Teams Tool Grinding Technician Relationship Specialty Start Date End Date Grant Lopez [address] [place] [address] [place] [address] PCP - General Internal Medicine 10/06/23 documented as of this encounter
== END ==
LOC: HO.CARD 08:02
PROVIDERS: PCP Physician Assistant Medical; Visit Provider Physician Assistant Medical
DX: R07.9 Chest pain, unspecified (principal)
CPT/HCPCS: 93017

== ENCOUNTER → 2025-05-16 08:04 | Outpatient (BNV) | payer OTHER, MEDICARE, SELFPAY | PROVIDERS: PCP Physician Assistant Medical | DX: R07.9 Chest pain, unspecified (principal) | CPT/HCPCS: 93016; 93018 ==

== ENCOUNTER 2025-05-26 13:23 | Outpatient (AMB) | payer MEDICARE, OTHER, SELFPAY ==
--- OUTSIDE RECORDS SUMMARY | 2025-05-26 13:26 | XMS_ITS | Patient Health Record ---
Author Organization [facility] Address [address] [facility] [place] [address] Care Team Providers Care Family Support Worker Name Role Phone Grant Lopez MD Primary Care Provider Mendez Phelps Unavailable [phone] Reason For Referral No Information Medications Medication [...] W/U Status Risk Notes Problem Achilles bursitis (435654613) Achilles tendinitis, right leg (M76.61) Active confirmed Problem Tinea pedis (4878736) Tinea pedis (B35.3) Active confirmed Plan Of Treatment Pending Test Test Name Order Date [id number] Plate 03/31/2016 [id number] Plate 04/14/2016 Insurance Providers Payer Name Payer Address Payer Phone Subscriber Number Group Number Insured Name Patient Relationship to Insured Coverage Start Date Coverage End Date Medicare National [employer] [address] [place] [address] [id number] Myron Allen Self - patient is the insured 6 Medical (General) History Medical History History ICD Code Epilepsy Seizures Chicken pox Cholesterol
--- OUTSIDE RECORDS SUMMARY | 2025-05-26 13:26 | XMS_ITS | Clinical Summary ---
Author Organization [facility] Address [address] [place] [address] Care Team Providers Care Diver Helper Name Role Phone Grant Lopez Primary Care Provider [phone] Allergies No known active allergies Medications carBAMazepine [...] this topic Procedures * Due to [place] [employer] law, this organization might not be sharing negative HIV tests. Procedure Name Priority Date/Time Associated Diagnosis Comments HEPATITIS C ANTIBODY W/REFLEX TO HCV RNA, QUANTITATIVE PCR Timed 12/17/2023 3:33 PM EDT from Last 3 Months or Most Recently Relevant to Health Maintenance Results * Due to [place] [employer] law, this organization might not be sharing negative HIV tests. * Hepatitis C Antibody w/Reflex to HCV RNA, Quantitative PCR (12/17/2023 3:33 PM EDT) Hepatitis C Antibody NON-REACT KARLA NON-REACT KARLA 12/18/2023 4:31 AM EDT [facility] Comment: HCV antibody was non-reactive. There is no laboratory evidence of HCV infection. In most cases, no further action is required. However, if recent HCV exposure is suspected, a test for HCV RNA (test code 45599) is suggested. For additional information please refer to http://[email or web address]/OFV83v5 (This link is being provided for informational/ educational purposes only.) Blood Structure of peripheral vein / Unknown Venipuncture / Unknown 12/17/2023 3:33 PM EDT 12/17/2023 3:37 PM EDT [facility] - 12/18/2023 4:31 AM EDT [facility] Received Date:[id number] us Phoebe Lopez MANAGER FAMILY LAB BLOOD ORDERABLES Shakira l Result [facility] [place] [address], [address] [place] [address], [place] [phone] [facility] MADELYN SCHNEIDER [address], [address] [facility] [place] [address], [place] [phone] from Last 3 Months or Most Recently Relevant to Health Maintenance Insurance MEDICARE [facility] Advance Directives Documents on File Type Date Recorded Patient E Learning Developer Expl anation Health Care Proxy 12/07/2023 8:14 AM * Presumed Full Code (Latest Code Status on File) Date Activated Date Inactivated Comments 12/16/2023 3:52 PM 12/19/2023 4:10 PM Care Teams Diver Helper Relationship Specialty Start Date End Date Grant Lopez [address] [place] [address] [place] [address] PCP - General Internal Medicine 10/06/23
--- OUTSIDE RECORDS SUMMARY | 2025-05-26 13:26 | XMS_ITS | Clinical Summary ---
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 Not on file Not on file [...] st Contact Info) Description 02/17/2025 Procedure Pass [address] [address] 06/12/2025 9:30 AM EST Hospital Encounter [address] [address] Beatrice Ho FNP [address] [place] [address] 06/21/2025 9:20 AM EST Blood Draw [facility] [address] [address] Sam Livingston MBBS [address] [place] [address] [email or web address] 06/21/2025 10:20 AM EST Office Visit [facility] at [address] [address] Sam Livingston MBBS [address] [place] [address] [email or web address] Health Maintenance Due Date Last Done Comments [...] Procedure Name Priority Date/Time Associated Diagnosis Comments COMPREHENSIVE METABOLIC PANEL (CMP) Routine 02/17/2025 7:58 AM EDT Renal cell carcinoma of right kidney HEPATITIS B CORE ANTIBODY, TOTAL Routine 02/25/2024 2:43 PM EDT Immunotherapy encounter from Last 3 Months or Most Recently Relevant to Health Maintenance Results * (ABNORMAL) Comprehensive metabolic panel (02/17/2025 7:58 AM EDT) SODIUM 140 133 - 146 mmol/L [facility] POTASSIUM 4.6 3.3 - 5.1 mmol/L [facility] CHLORIDE 106 96 - 108 mmol/L [facility] CO2 23 21 - 35 mmol/L [facility] BUN 25(H) 6 - 19 mg/dL [facility] CREATININE 1.80(H) 0.5 - 1.5 mg/dL [facility] GLUCOSE 199(H) 70 - 99 mg/dL [facility] ALBUMIN 4.0 3.9 - 4.8 g/dL [facility] TOTAL PROTEIN 6.6 6.5 - 8.0 g/dL [facility] CALCIUM 8.7 8.4 - 10.3 mg/dL [facility] ALKALINE PHOSPHATASE 136(H) 39 - 117 U/L [facility] TOTAL BILIRUBIN <0.2 0.0 - 1.2 mg/dL [facility] AST 14 0 - 37 U/L [facility] ALT 22 0 - 40 U/L [facility] GLOBULIN 2.6 1 - 4.8 g/dL [facility] EGFR 42(L) >59 mL/min/1.7 3m2 [facility] Comment:Estimated glomerular filtration rate calculated using the CKD-EPI refit equation. ANION GAP 16 10 - 20 mmol/L [facility] Blood 02/17/2025 7:58 AM EDT 02/17/2025 8:04 AM EDT us Sam Livingston MBBS LAB BLOOD BKR ORDERABLES F inal Result [address] [address] * Hepatitis B core antibody, total (02/25/2024 2:43 PM EDT) HEP B CORE AB, TOT NON-REACTI VE NON-REACTI VE [facility] Blood 02/25/2024 2:43 PM EDT 02/25/2024 2:47 PM EDT us Rom Griffith MD LAB BLOOD BKR ORDERABLES Shakira quan Result [facility] [address] [place] [address] from Last 3 Months or Most Recently Relevant to Health Maintenance Insurance MED[place] [id number] [facility] HMO MEDICARE PART A & B Member Subscriber Plan / Payer (Ef fective 1996-Present) Name:Myron Lyons Member ID:[id number] Relation to Subscriber:Self Name:Myron Lyons Subscriber ID:[id number] Payer ID:[id number] Group ID:Not on file Type:Medicare Address: [employer] [address] HMO MEDICARE PART A & B O MEDICARE PART A & B Member Subscriber Plan / Payer (Ef fective 1996-Present) Name:Myron Lyons Member ID:[id number] Relation to Subscriber:Self Name:Myron Lyons Subscriber ID:[id number] Payer ID:[id number] Group ID:Not on file Type:Medicare Address: [facility] [employer] [facility] [address] HMO MEDICARE PART A & B O Member Subscriber Plan / Payer (Ef fective 2023-Present) Name:Myron Lyons Relation to Subscriber:Self Name:Myron Lyons Payer ID:Not on file Type:HMO Address: [place] [id number] MEDICARE PART A & B [facility] Address: [place] [address] Advance Directives For more information, please contact: [phone] (9AM - 5PM [facility], Thursday-Thursday) Documents on File Type Date Recorded Patient Centrifuge Separator Operator Expl anation Healthcare Proxy 02/25/2024 2:47 PM Myron Bird [facility] care proxy Care Teams Scrap Sorter Relationship Specialty Start Date End Date Grant Lopez MD [address] [place] [address] PCP - General Internal Medicine 02/25/24 Sam Livingston MBBS [address] [place] [address] [email or web address] Primary Oncologist Medical Oncology 09/15/24 Grace Banegas CNP [address] [place] [address] Nurse Practitioner 11/30/24 Additional Source Comments The information contained in this document represents components of the legal health record. It is not the complete legal health record.[facility]
--- OUTSIDE RECORDS SUMMARY | 2025-05-26 13:26 | XMS_ITS | Encounter Summary ---
Author Organization [facility], Address [address] [place] [address] Phone Care Team Providers Care Sales And In Home Delivery Specialist Name Role Phone Beatrice Ho Primary Care Provider [phone] Encounter Details Date Type Department Care Team (Late st Contact Info) Description 04/06/2024 Documentation Only [facility] [address] [place] [address] [place] [address] [place] [phone] Social History Tobacco Use Types Packs/Day Years Used Date Smoking Tobacco: Never Assessed Sex and Gender Information Value Date Recorded Sex Assigned at Not on file Legal Sex Male 12:25 PM EST Gender Identity Not on file Sexual Orientation Not on file documented as of this encounter Plan of Treatment Upcoming Encounters Date Type Department Care Team (Late st Contact Info) Description 04/06/2026 10:45 AM EST Office Visit [facility] Jose [address] Mark MICHEL [address] [place] [phone] Frederick Corey MD [address] [place] [address] [place] [address] documented as of this encounter Visit Diagnoses Not on filedocumented in this encounter Care Teams Sales And In Home Delivery Specialist Relationship Specialty Start Date End Date Beatrice Ho [address] [place], [place] [id number] PCP - General 04/06/24 documented as of this encounter
--- OUTSIDE RECORDS SUMMARY | 2025-05-26 13:26 | XMS_ITS | Patient Health Record ---
Author Organization [facility] Address [address] [place] [address] Care Team Providers Care Treating Plant Operator Name Role Phone Jessica (RETIRED) Grant GOLD Primary Care Provide Darren Menjivar Jr Unavailable [phone] Allergies Allergen (clinical drug ingredient) Drug/Non Drug [...] Status Risk Notes Problem Colon cancer screening (288129041) Colon cancer screening (Z12.11) Active confirmed Plan Of Treatment Future Test Test Name Order Date COLONOSCOPY 11/06/2021 Next Appt Details Provider Name:Darren Michelle zurita Jr, 08/17/2025 02:55:00 PM, [address], [address], [place], [address], Insurance Providers Payer Name Payer Address Payer Phone Subscriber Number Group Number Insured Name Patient Relationship to Insured Coverage Start Date Coverage End Date MEDICARE OF [place] [address] [place] [id number] EDDA LONDONO Self - patient is the insured Medical (General) History Medical History History ICD Code Seizure disorder Allergic rhinitis Elevated cholesterol Surgical History Surgery Date(Month/Year)
--- OUTSIDE RECORDS SUMMARY | 2025-05-26 13:26 | XMS_ITS ---
Author Organization [facility] Address [address] [place] [address] Phone Care Team Providers Care Tip Fixer Name Role Phone Grant Lopez MD Primary Care Provider Sam Livingston Unavailable [phone] Grace Banegas SANITATION TRUCK CLEANER Unavailable Active Problems Problem Noted Date Diagnosed [...] MD Linked Problems Renal cell carcinoma of [facility] kidney Treatment Medications pembrolizumab (KEYTRUDA) IVPB Bag Past Treatment and Therapy Plans No past plan information found.
--- OUTSIDE RECORDS SUMMARY | 2025-05-26 13:26 | XMS_ITS | Clinical Summary ---
Author Organization [facility], Address [address]HEL [address] [place] [phone] Phone Care Team Providers Care Filter Changing Technician Name Role Phone Beatrice Ho Primary Care Provider [phone] Allergies Active Allergy Reactions Criticality Noted Date [...] Encounters Date Type Department Care Team Description 04/07/2025 10:30 AM EST Office Visit [facility] [address] [place] [phone] Frederick Corey MD Stage 3b chronic kidney disease (HCC) (Primary Dx); History of radical nephrectomy; Renal disorder due to type 2 diabetes mellitus <Unspecified DM Medication; Other diabetic kidney complication> (HCC) from Last 3 Months Social History Tobacco [...] [facility] [address] [place] [phone] Frederick Corey MD [address] [place] [address] [place] [address] Health Maintenance Due Date Last Done Comments [...] age to complete this topic Insurance Medicare [facility] Care Teams Filter Changing Technician Relationship Specialty Start Date End Date Beatrice Ho [address] [place] [address] PCP - General 04/06/24
--- OUTSIDE RECORDS SUMMARY | 2025-05-26 13:26 | XMS_ITS ---
Author Organization [facility] Address [address] [place] [address] Care Team Providers Care Fabrication Supervisor Name Role Phone Grant Lopez Primary Care Provider [phone] Active Problems Problem Noted Date Diagnosed Date Malignant neoplasm of right kidney 03/27/2024 Current Treatment and Therapy Plans No current plan information found. Past Treatment and Therapy Plans No past plan information found. Lifetime Dose Tracking * Chemical Lifetime Dose Automatic Entry Manual Entr y TotalDLP 2,122 mGy 2,122 mGy 0 mGy [id number] 27.6 mSv 27.6 mSv 0 mSv CTDIvol Max 17.5 mGy 17.5 mGy 0 mGy CTDIvol Min 14.4 mGy 14.4 mGy 0 mGy Resolved Problems Problem Noted Date Diagnosed Date Resolved Date Renal mass 10/22/2023 03/27/2024
--- OUTSIDE RECORDS SUMMARY | 2025-05-26 13:26 | XMS_ITS | Encounter Summary ---
Author Organization [facility] Address [address] [place] [address] Care Team Providers Care Social Services Technician Name Role Phone Grant Lopez Primary Care Provider [phone] Encounter Details Date Type Department Care Team (Late st Contact Info) Description 10/22/2023 Orders Only [facility] Interventional Radiology [address] [place] [address] Ronny Meyer, [address] [place] [address] Social History Tobacco Use Types Packs/Day Years [...] on filedocumented in this encounter Care Teams Social Services Technician Relationship Specialty Start Date End Date Grant Lopez [address] [place] [address] [place] [address] PCP - General Internal Medicine 10/06/23 documented as of this encounter
--- NOTE | 2025-05-26 13:28 | MHC.OFFVIS ---
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 He reports two episodes of chest pressure approximately two months ago, with both instances waking him from sleep. Each episode of anterior chest pain and pressure lasted about five to seven minutes before resolving spontaneously, and he has not had any symptoms during the daytime. His past medical history includes hyperlipidemia, diabetes which is reportedly well-controlled, chronic kidney disease, seizures, and renal cancer. He underwent a nephrectomy for the cancer about a year and a half ago and is currently under surveillance, with recent results indicating he is clear. He reports a history of ankle swelling that resolved after his kidney surgery. A recent exercise stress test on 05/16/2025 was negative for ischemia, with the patient exercising for six minutes without chest discomfort or EKG changes. A CT scan of the chest from 11/30/2024 showed no coronary calcifications. Lab work from 04/06/2025 showed a creatinine of 1.84, and a test from 11/15/2024 showed an LDL of 145. He believes he was on Pravastatin at that time. The patient is retired and he does not engage in routine exercise due to fear of injury following his kidney operation but plans to start soon. He reports never smoking or drinking alcohol routinely. He has no family history of heart disease. He has never been diagnosed with any cardiac conditions. [facility] Medical History Chest pain Abdominal pain Medication management Needle stick, hypodermic, accidental Rectal bleed Chronic kidney disease, stage III (moderate) Enlarged prostate Renal cancer Diabetes Bleeding hemorrhoids Hyperlipidemia Seizure Surgical History History of right radical nephrectomy H/O hemorrhoidectomy (~11/07/22) Hx of colonoscopy (~12/06/21) Family History Brother Cancer of unknown origin Mother No problems noted. Father No problems noted. Social History Housing: House Alcohol intake: never Patient Tobacco Use Status: Never used Tobacco e-Cigarette/Vaping Use: Never Used service: No Current occupational status: retired Cognitive needs: No Hearing needs: No Vision needs: Yes (rx glasses) Review of Systems Const All systems reviewed & are unremarkable except as noted in HPI and below Denies chills, Denies fatigue, Denies fever(s), Denies frequent falls, Denies weakness, Denies weight gain and Denies weight loss Eyes Denies loss of vision ENT Denies dizziness Card Reports chest pain (pressure), Denies leg edema, Denies lightheadedness, Denies palpitations, Denies dyspnea, Denies dyspnea on exertion, Denies orthopnea and Denies other (loss of consciousness) Resp Denies cough, Denies dyspnea, Denies dyspnea on exertion and Denies wheezing GI Denies hematochezia and Denies change in stool character Denies dysuria and Denies urinary frequency Musc Denies abnormal gait, Denies muscle weakness, Denies numbness, Denies radiating pain into limb and Denies tingling Skin/Breast Denies nail changes and Denies rash Neuro Denies abnormal gait, Denies dizziness, Denies frequent falls, Denies loss of vision, Denies memory loss, Denies numbness, Denies tingling and Denies weakness Psych Denies depression and Denies memory loss Endo Denies fatigue and Denies palpitations Jerrell/Lymph Reports easy bruising and Reports other (anemia) Aller/Immun Denies wheezing Physical Exam Vital Signs: Last Vital Signs Pulse 93 05/26/25 13:29 BP 118/76 05/26/25 13:29 BMI result Body Mass Index 35.2 Const General: cooperative, healthy appearing, comfortable and no acute distress Orientation/consciousness: patient oriented x3 Neck Neck: Yes normal visual inspection Resp Effort & Inspection: normal respiratory effort Auscultation: clear to auscultation bilaterally, no crackles, no rales, no rhonchi and no wheezes Cardio Rate: regular rate Rhythm: regular rhythm Heart sounds: S1 normal heart sound present, S2 normal heart sound present, no gallops, no murmurs and no rubs Neuro General: patient oriented x3 Extrem General: Yes normal to inspection, No no pedal edema and No calf tenderness Psych Appearance: grossly normal Mental Status: mental status grossly normal Speech and movement: Normal speech and movement present Office Procedures EKG Details: Today, read by me, normal sinus rhythm, rate 93, QTC 437 milliseconds [id number], Complete Assessment & Plan Assessment & Plan (1) Chest pain: Code(s): R07.9 - Chest pain, unspecified Category: Medical (2) Hyperlipidemia: Code(s): E78.5 - Hyperlipidemia, unspecified Category: Medical Plan Plan 1. Chest Discomfort The patient's symptoms of nocturnal chest pressure are atypical for cardiac angina, as they occur at rest and not with exertion, and a recent exercise stress test was negative. While the etiology is likely non-cardiac, an echocardiogram will be ordered to evaluate cardiac structure and function to ensure no underlying abnormalities. A different type of stress test may be considered if the echocardiogram reveals abnormalities. The patient was advised to go to the emergency room for any persistent chest discomfort. 2. Hyperlipidemia LDL goal < 70 in pt with Diabetes. LDL was 145 as of 11/15/2024. He is on pravastatin and recommend higher intensity statin. Followed by PCP. 3. History Of Renal Cancer The patient is status post-nephrectomy and reports he is clear of cancer. He remains under periodic surveillance. Follows with nephrology Discussion Notes I explained to the patient that his chest discomfort is atypical for a cardiac issue because it only occurs at night and not with physical activity, which is when cardiac symptoms usually appear. I noted that his recent exercise stress test was reassuringly normal. To be thorough, I recommended an echocardiogram, which is an ultrasound of the heart, to check its structure and function. I informed him that a follow-up visit will be scheduled and that the scheduling department will call him to arrange the echocardiogram appointment. I provided clear return precautions, advising him to go to the emergency room for any chest discomfort that is severe or does not resolve on its own after a few minutes to avoid potential heart damage. Patient Instructions - An ultrasound of your heart, called an echocardiogram, has been ordered. Someone from our scheduling department will call you to set up the appointment. - If you have chest pain or discomfort that does not go away after a few minutes, go to the emergency room right away. - A follow-up visit will be scheduled for you to discuss your test results. Patient was informed and verbally consented to the use of an ambient scribe for clinic note documentation during this visit. Visit time spent on chart review, interview, assessment, orders, documentation. Orders: Orders CA echo transthoracic complete Today R07.9 - Chest pain, unspecified Coding Level of Care Code New Pt Level 4 (67280) Add On Problem Visit Only Diagnoses Chest pain R07.9 Hyperlipidemia E78.5 CPT Codes EKG - CPT: 97705-[id number], Complete ([id number]) Time Spent (min) 28
[2025-05-26 13:29] VITALS: BP 118/76; PULSE 93; BMI 35.2
== END 2025-05-26 13:58 | disposition home or self-care (01) ==
LOC: HO.HCS 13:24
PROVIDERS: PCP Physician Assistant Medical; Visit Provider Nurse Practitioner Family
DX: R07.9 Chest pain, unspecified (principal); E78.5 Hyperlipidemia, unspecified
CPT/HCPCS: 93010; 99204; G2211

== ENCOUNTER → 2025-05-26 13:23 | Outpatient (BNVA) | payer MEDICARE, OTHER, SELFPAY | PROVIDERS: PCP Physician Assistant Medical; Visit Provider Nurse Practitioner Family | DX: E78.5 Hyperlipidemia, unspecified (principal); R07.89 Other chest pain; Z90.5 Acquired absence of kidney; E11.9 Type 2 diabetes mellitus without complications; Z79.84 Long term (current) use of oral hypoglycemic drugs | CPT/HCPCS: 93005; 99202 ==